=== PATIENT | male | born 1945 | race Two or more races ===

== ENCOUNTER 2024-12-30 13:49 | Inpatient (IN) | payer OTHER, SELFPAY ==
--- NOTE | 2024-12-09 12:18 | CM ---
Addendum entered by Rajni Mcintosh RN 12/09/24 14:50:
Demographics: confirmed
Living situation: lives with who does not drive, son will be available for transportation.
Support Person Post Operatively: , son
History of
VN: [facility], but patient is agreeable to [facility]
SNF: none
Outpatient: patient is unable to drive.
Has patient purchased required equipment: yes
PCP: Estefany
Pharmacy: [facility]
Post Operative Discharge Plan: Home with [facility], and continue with home PT. Patient does not have a ride to outpatient PT.
Addendum entered by Rajni Mcintosh RN 12/09/24 14:42:
[facility] is unable to accept. CM sent referral via [facility] to [facility].
Original Note:
CM reviewed medical records. CM will have to confirm if patient is eligible for [facility]. CM to send referral via [facility] for possible acceptance.
[2024-12-20 11:32] VITALS: BMI 32.4
[2024-12-20 12:04] LABS: Hematocrit 40.1 % (39.0-52.0); Hemoglobin 13.6 g/dL (13.0-18.0); Mean Corp Hgb Conc. 33.9 g/dL (33.0-37.0); Mean Corpuscular Volume 94.8 fL (80.0-94.0); Platelet Count 175 10^3/uL (130-400); Red Cell Dist. Width 13.1 % (11.5-14.5)
[2024-12-20 13:03] LABS: ALT (SGPT) 14 U/L (0-50); AST (SGOT) 18 U/L (17-59); Albumin 4.9 g/dl (3.5-5.0); Alkaline Phosphatase 47 U/L (38-126); Blood Urea Nitrogen 23 mg/dl (9-20); Calcium 9.8 mg/dl (8.4-10.2); Carbon Dioxide 26 mmol/L (22-30); Chloride 106 mmol/L (98-107); Estimated Creatinine Clearance 79 ml/min; Glucose 95 mg/dl (70-99); Potassium 4.2 mmol/L (3.5-5.1); Sodium 138 mmol/L (135-145); Total Protein 8.0 g/dl (6.3-8.2); eGFR > 60.00
[2024-12-20 13:55] LABS: Glycohemoglobin (HgbA1c) 5.2 % (4.0-5.6)
[2024-12-22 14:28] VITALS: BMI 32.4
[2024-12-29] VITALS (20 sets, daily range): BP systolic 97–156; BP diastolic 64–87; BMI 32.4
[2024-12-29] MEDS: CELEBREX 200 MG PO (07:45)
[2024-12-29] MEDS: TYLENOL 650 MG PO ×2 (07:47→19:46)
[2024-12-29] MEDS: NORMOSOL-R/PLASMALYTE-A 1000 IV ×3 (07:47→19:45)
[2024-12-29] MEDS: ANCEF 5 IV ×2 (11:53→19:45)
[2024-12-29] MEDS: ROXICODONE 5 MG PO ×2 (12:14→13:12)
--- NOTE | 2024-12-29 12:27 | PTCARENOTE ---
Patient tried to stand to dress at 12:00 but could not stand due to pain. RN had offered pain meds prior to standing and patient refused. Patient put back to bed and given an oxycodone. Will monitor patient. PT to come up at 1330.
--- NOTE | 2024-12-29 13:45 | PTCARENOTE ---
Tried standing patient and he was still unable to stand. Patient is very lethargic and teetering on the side of the bed and not able to hold self up. Dr. Nicholas saw patient at bedside and patient will be staying over. Patient and son aware. Will
monitor patient.
--- NOTE | 2024-12-29 14:16 | W.PN.UPDATE ---
Update Note
Progress Note Update
L knee OA s/p L TKA w/ Dr Nicholas 12/29/24
- Given initial safety concerns immediately post-op, will admit for further monitoring. Will place on fall precautions
- Work w/ PT and OT as able. Will need home PT/VN upon d/c
DVT prophylaxis - ASA, b/l venous foot pumps
HLD
RBBB
AAA, 4.[address]
Venous varicosities
Nephrolithiasis
Vertigo
Remote liposarcoma, left lower extremity, status post excision and chemo
Skin cancer, status post excision
Post-operative headache associated with remote spinal anesthesia
Obesity, BMI 32.3
Remote history of tobacco abuse
--- NOTE | 2024-12-29 14:33 | PTCARENOTE ---
2 L O2 applied for a sat of 90%. Abebe CONNER aware and told to apply 2 L O2. Shannon Zavala made aware and orders for IS. Report given to Melony CONNER. Melony aware that IS is ordered. Will monitor patient.
--- NOTE | 2024-12-29 16:26 | PTCARENOTE ---
patient has not voided pre op. Bladder scanned at 1545 for 687. Message william bhatti and Dr. Nicholas for possible straight cath. Flomax is ordered prn in transfer orders. Gave report to Genia hernandez RN.Waiting for room to be cleaned
[2024-12-29 17:17] LABS: Glucose - Point of Care 136 mg/dl (70-99)
--- NOTE | 2024-12-29 18:04 | PTCARENOTE ---
Patient admitted from same day services following left total knee arthroplasty.The patient was complaining of significant pain post op and had a lot of pain medicine.He is alert but slow to respond.Anesthesia just saw him and they feel that it is
all from the pain medicine.Neurovascular assessment is within normal limits and ongoing.The left knee dressing is intact without drainage.Vital signs are stable.Blood pressures are soft but stable.The patient was transferred to his bed with the call
hawthorne in place.His son is at the bedside.
[2024-12-29] MEDS: ASPIRIN 325 MG PO (18:37)
[2024-12-29] MEDS: FLOMAX 0.4 MG PO (18:37)
[2024-12-29] MEDS: COLACE 100 MG PO (19:46)
[2024-12-29] MEDS: SENOKOT 17.2 MG PO (19:46)
[2024-12-29] MEDS: BACTROBAN 2% OINTMENT 1 APPLIC NASAL (20:07)
[2024-12-29] MEDS: DECADRON 4 MG PO (20:25)
[2024-12-29 21:59] LABS: Glucose - Point of Care 143 mg/dl (70-99)
--- NOTE | 2024-12-29 22:20 | W.PN.UPDATE ---
Update Note
Progress Note Update
2216 LEGAL EXECUTIVE ASSISTANT
stroke alert
Patient with progressively worsening change in mental status. At present NIH 23. Patient Awake and alert, + Dysphasia, Dysarthria responds to name, has a gaze, but does not follow commands. Also noted muscle twitching on Right thigh, decorticate
posture noted as well, Stable VS , BS 138
CT stroke head/neck
CT stroke Head
CT Brain perfusion stroke
Consulted with Joshua Neurologist.
No treatment at present.
Advised MRI Brain, Ceribell test if continuos to have twitching
lungs with mild rhonchi/rales at the right base, need of increase in oxygen via NC noted 89-90% 3l, now on 5 L 94% RR 18 Chest Xray, ABG
Abdomen distention noted. + BS, non tender, +tympanic. CT abd/pelvis
will order UA, labs, EKG, Trop, lactic
RN reports patient was lethargic, AA and did follow commands to take his medicationsat 8 PM.
Discussed overnight events with family. son addresses he was with father all day and noted last normal was post surgery around 10:30 AM, noted mentation worsening and more weak throughout the day.
[facility] greenstone polisher operator Physician made aware.
Hospitalist consult in place
neurologist consult in place.
[2024-12-29 22:41] LABS: Hematocrit 37.3 % (39.0-52.0); Hemoglobin 12.9 g/dL (13.0-18.0); Mean Corp Hgb Conc. 34.6 g/dL (33.0-37.0); Mean Corpuscular Volume 92.1 fL (80.0-94.0); Nucleated Red Blood Cells % 0 % (-); Platelet Count 188 10^3/uL (130-400); Red Cell Dist. Width 13.1 % (11.5-14.5)
[2024-12-29 22:59] LABS: Blood Urea Nitrogen 23 mg/dl (9-20); Calcium 8.8 mg/dl (8.4-10.2); Carbon Dioxide 23 mmol/L (22-30); Chloride 106 mmol/L (98-107); Estimated Creatinine Clearance 102 ml/min; Glucose 141 mg/dl (70-99); Potassium 3.9 mmol/L (3.5-5.1); Sodium 140 mmol/L (135-145); eGFR > 60.00
--- NOTE | 2024-12-29 23:55 | PTCARENOTE ---
Pt transferred to [address] and stroke alert. Pt opens eyes, states date of , can respond with yes at times. NIHSS 24, can occasionally move legs and slightly moves arms. Arms posturing. SR on tele. 91% on midflow 15L, non
rebreather mask applied. lungs coarse/diminished. abdomen round/distended +BS. Incont lg amount yellow urine. OXIDIZED FINISH PLATER Hephziba aware and at bedside. ABG, trop, CXR, UA completed.
[2024-12-30] VITALS (24 sets, daily range): BP systolic 110–171; BP diastolic 55–108; BMI 32.4
[2024-12-30 00:11] LABS: B.E. -1.1 mmol/L; HCO3 22.4 mmol/L (21-28); O2 Saturation % 90.1 % (94-98); PCO2 33 mmHg (35-48)
[2024-12-30 00:12] LABS: PO2 57 mmHg (83-108)
--- NOTE | 2024-12-30 00:31 | PTCARENOTE ---
Late entry- s/p LTKA, Spinal plus IO morphine infusion by Cristopher per report. Patient administered x2 doses of Oxycodone 5mg >1214 and 1312.
Per shift report, patient was due for transfer to 2S earlier in day, but delayed d/t mentation from pain medications? At 1752, patient admitted to 2S.
Upon walking rounds, patient Alert/awake/oriented to self, confused/ forgetful, but follows commands, no c/o pain. NIH tested> Score 8. Patient w/ mild aphasia, LLE limb ataxia/decreased sensation. Left knee dressing C/D/I. Patient's VSS but is
requiring O2 which is new for him. Per previous notes, patient placed on 2LNC at 1626. This RN received patient on 3LNC. Lung sounds are clear, diminished b/l bases. Heart sounds regular but distant. Abdomen is soft/nontender, obese. Patient took
pills w/o issue. At 2005, patient bladder scanned for 604ml and straight cath 700ml yellow urine.
IVF administered per MD order.
Throughout this RN's shift, patient became more lethargic. Patient not following simple commands. cafeteria monitor placed- NSR. House FORGING DIE SINKER notified and came to bedside to assess patient. Ultimately, a RR/ stroke alert called. Patient transferred off
unit for testing and upgraded to IMU. Report handed off to DALILA Flores.
[2024-12-30 01:02] LABS: Urine Character Clear (Clear)
[2024-12-30] MEDS: TYLENOL PO ×4 (01:06→11:54)
[2024-12-30 01:08] LABS: Urine Red Blood Cell 0-2 /HPF (0-2); Urine Squamous Cell 0-2 /LPF (Few); Urine White Cell 0-2 /HPF (0-5)
[2024-12-30 01:35] LABS: Troponin I 0.021 ng/ml
[2024-12-30] MEDS: NARCAN 0.4 MG IV ×2 (02:03→02:25)
[2024-12-30] MEDS: NSS 1000 IV ×3 (02:55→23:32)
--- NOTE | 2024-12-30 02:56 | W.PN.UPDATE ---
Update Note
Progress Note Update
[address] [facility]: Kidney stones, hernia,�lipo�sacoma.�L knee OA s/p L TKA�on 12/29,�was supposed to be�sameday�surgery, in PACU received�one�dose of oxycodone, patient�become drowsy,�physician�decided to�admit�for overnight
observation.�2216 Stroke alert called for�changes�in�mental status;�work up�reveal, no�significant findings on head/chest/abdomen/pelvis CT,�ABG�and labs.�0200�House provider transfer�patient�for concern�of�seizure; started�on�ceribell�(0%�of
seizure burden).�Neuro status when arriving�at�the ICU was minimally�conscious�(arouses�and�inconsistent�awareness,�follows simple commands,�periods of�appropriate yes�response�and�can tell you�his�date of . �Attempted�Narcan
for�concern�of�opioid�intoxication.�Marginal improvement�
--- NOTE | 2024-12-30 03:08 | PTCARENOTE ---
Pt transferred from IMU to ICU. Pt drowsy, with intermittent periods of arousal. Pt able to state , responds to name. Does not follow commands. B/l UE flexed toward body, tense. Non-purposeful b/l intermittent flexion of knees. Both UE/LE drop
to bed when lifted, no resistance to gravity. Unable to truly test vision as pt inconsistent with yes/no answers. Does not follow commands to read sentences on NIH or identify pictures. Gaze preference to L side but moves eyes L + R by self (not on
command, will not follow finger). Pt states 'yes' to being able to feel when RN touches each limb at a time, but also states 'yes' when no one is touching him. When asking where he is or what month it is, pt repeats sentence back.
x2 dose Narcan ordered and administered. Ineffective at causing meaningful arousal.
Assessment as documented.
--- NOTE | 2024-12-30 03:29 | HPS.HSE ---
Family Physician
-
Family Physician: Randy Haider
Chief Complaint
-
Altered mental status
History of Present Illness
Patient is a 79-year-old male who has past medical history of end-stage knee osteoarthritis, hyperlipidemia, hypertension, history of ascending aortic aneurysm, prior liposarcoma status post surgery, presenting status post left total knee
arthroplasty with altered mental status and is being admitted to the medicine service for this.
Briefly, patient underwent left total knee arthroplasty starting at around 7:30 AM today. Procedure was without any complication. He did not get general anesthesia but received a regional block with sedatives. Medications received included
propofol 170 mg, Precedex, dexamethasone, ephedrine, fentanyl, bupivacaine, tranexamic acid and phenylephrine in addition to prophylactic cefazolin. Regional nerve block included morphine sulfate. 10 mg. Afterwards patient received Roxicodone 5 mg
at 12 noon and also 5 mg at 1 PM. Order administered medications where cefazolin, tamsulosin dexamethasone. Gabapentin was not given.
Hypoxic requiring 3 L NC in PACU.
According to chart patient had been lethargic since procedure. He was initially able to respond and was thought to be last normal at around 10 PM. Since then he has been minimally responsive. Unable to tolerate his p.o. Has been no measured
fevers or chills.
He had increasing oxygen requirement and then around mid 90s stroke alert was called for altered mental status. Stroke workup included head CT which showed no acute findings. CT perfusion study did not show any changes. CT angio of the head and
neck shows no significant stenosis dissection aneurysms or thrombus in the intracranial and neck vessels. There was no bleed. Due to slightly distended abdomen additional imaging included CT of the chest abdomen pelvis which showed no evidence of
pneumonia, there was a ascending aorta aneurysmal dilation measuring up to 4.4 cm. Marked calcified focus at the posterior margin of the pancreatic head suggestive of chronic pancreatitis. Mild to moderate colonic fecal burden with gaseous
distention of the transverse colon and mild gaseous distention of the small bowel. No evidence of bowel obstruction, no bowel thickening. Mild urinary bladder wall thickening and mild bladder wall trabeculation. No ascites.
By time I saw the patient he is oxygen requirement was mid flow at 15 L and was satting 93%. Blood pressure was 124/89 with a pulse rate of 85 respiratory rate was 26. Tmax was 98.3. He had a white count of 15.0 hemoglobin 12.9 and platelet count
of 188. His electrolytes BUN/creatinine were normal. Troponin was negative. UA was unremarkable. ABG was 7.4 with a sat of 90% on the 3 L. ECG 1st deg avb w/ sinus arrythmia
He had EEG continuous monitoring on which showed 0% seizure burden. Stroke alert was discontinued as there is no evidence of an acute stroke.
Medical History
Past Medical History
Past Medical History: Reports Other
Additional Past Medical History:
Liposarcoma s/p surgery
GERD
Hypertension
Ascending aortic aneurysm
Past Surgical History: Reports Other
Additional Past Surgical History:
Hernia repair
Surgery for liposarcoma
Social History
Tobacco: Other
Alcohol: None
Drug: None
Family History
Family History: Not pertinent
Allergies / Home Medications
Allergies reflects when Allergies were last updated in [employer].
Home Medications with original date entered in [employer]
Allergy/Medication List:
Allergies
Allergy/AdvReac Type Severity Reaction Status Date / Time
No Known Allergies Allergy Verified 12/29/24 07:37
Home Medications
metoprolol succinate 25 mg tablet,extended release 24 hr 25 mg PO DAILY 12/10/24
multivitamin 1 tab PO DAILY 12/10/24
simvastatin 20 mg tablet 20 mg PO QPM 12/10/24
vitamin B complex 1 tab PO DAILY 12/10/24
celecoxib 200 mg capsule (Celebrex) 200 mg PO DAILY #14 caps 12/20/24
dexamethasone 4 mg tablet 4 mg PO BID Anti-inflammatory #7 tabs 12/20/24
famotidine 20 mg tablet (Pepcid) 20 mg PO HS #30 tabs 12/20/24
gabapentin 300 mg capsule 300 mg PO HS neuropathic pain/sleep #10 caps 12/20/24
mupirocin 2 % topical ointment 1 applic intranasal BID #1 tube 12/20/24
ondansetron HCl 4 mg tablet 4 mg PO Q6H PRN nausea and vomiting #30 tabs 12/20/24
oxycodone 5 mg tablet 5 - 10 mg (1 - 2 x 5 mg) PO Q6H PRN moderate-severe pain #30 tabs 12/20/24
acetaminophen 500 mg tablet (Acetaminophen Extra Strength) 1,000 mg (2 x 500 mg) PO Q6H #60 tabs 12/29/24
aspirin 325 mg tablet 325 mg PO DAILY #30 tabs 12/29/24
docusate sodium 100 mg capsule (Colace) 100 mg PO BID #30 caps 12/29/24
magnesium hydroxide 400 mg/5 mL oral suspension (Milk of Magnesia) 30 ml PO HS PRN constipation #3,780 mL 12/29/24
sennosides 8.6 mg tablet (senna) 17.2 mg (2 x 8.6 mg) PO BID #30 tabs 12/29/24
Review of Systems
-
Unable to obtain full review of systems at this time due to: Patient Non-verbal
Physical Exam
Vital Signs
Vital Signs
Temp Pulse Resp BP Pulse Ox
98.3 F 91 26 141/76 94
12/30/24 02:16 12/30/24 03:00 12/30/24 03:00 12/30/24 02:00 12/30/24 03:25
Physical Exam
General: Other (Somnolent, arousable but not following any commands. Mild respiratory distress with tachypnea and mild diaphoresis)
HEENT: NormoCephalic and Other
Respiratory: Clear and Decreased Breath Sounds; No Rhonchi or Crackles
Cardiac: S1/S2 and Regular Rhythm; No Murmur, Rub or JVD
GI: Soft and Normal Bowel Sounds
Rectal: Deferred by Provider
Genito-urinary: Deferred by me
Musculoskeletal: No Clubbing, No Cyanosis and No Edema
Skin: Warm
Neuro: Other (Minimally responsive, GCS = 9)
Hematologic/Lymphatic: No Lymphadenopathy
Laboratory Results
-
Laboratory Results
pH 7.44 (7.35-7.45) 12/30/24 00:03
pCO2 33 mmHg (35-48) L 12/30/24 00:03
pO2 57 mmHg (83-108) L* 12/30/24 00:03
HCO3 22.4 mmol/L (21-28) 12/30/24 00:03
Total Bilirubin 0.9 mg/dl (0.2-1.3) 12/20/24 11:01
AST 18 U/L (17-59) 12/20/24 11:01
ALT 14 U/L (0-50) 12/20/24 11:01
Alkaline Phosphatase 47 U/L (38-126) 12/20/24 11:01
Troponin I 0.021 ng/ml 12/30/24 00:49
Data Reviewed
-
Diagnostic Radiology: Report Reviewed by me
CT Scan: Report Reviewed by me
Medical Tests (Nuc Med, Echo, EKG etc): Image Personally Visualized and interpreted
Lab Data: Labs Reviewed by me
Old Records: Reviewed
Impression/Plan
-
IMPRESSION:
79-year-old with past medical history significant for ascending aortic aneurysm, hypertension who is status post left total knee arthroplasty to the and then developed altered mental status that progressed throughout the day. It initially started
as lethargy and fatigue with decreased responsiveness, now patient has markedly diminished alertness with a GCS of around 9. Opens eyes to commands and can attempt to follow very simple commands such as squeezing hands but only minimally so. No
other commands followed. He has transient and brief episodes of flexural posturing of the upper extremities and extensor posturing of the lower extremities simultaneously. Did not observe any twitching but this was noted in the in the day.
Initial woke up has been started. Stroke alert was called and patient essentially it was clear for an acute stroke at that time with negative CT of the head, CT perfusion was also negative. CT angio shows no significant stenosis thrombus
obstruction bleed or aneurysm. Is had continuous EEG monitoring with no seizure burden. There was a trial of Narcan x 2 on arrival in the ICU without any significant improvement in mental status. In addition to the decline in mental status the
patient also has increasing oxygen requirement. Initially started at oxygen requirement of 3 L postoperatively but is now requiring 15 L mid flow to maintain sats of 93. He is also tachypneic to around 25 to 28 breaths/min. Workup so far
including x-ray and CT of the chest without contrast showed no acute infiltrates. Patient has leukocytosis but otherwise no signs of infection with negative UA. CT of the abdomen and pelvis was unrevealing except for a mild gaseous distention of
the stomach and intestine.
PLAN:
Altered mental status -patient with some flexion and extension posturing of the upper and lower extremities respectively concerning for significant encephalopathy versus a bilateral midbrain lesions. This is less likely seizure and the EEG did not
show any seizure boarding or activity during this posturing phase. Concern remains for CVA, metabolic encephalopathy secondary to medications or infection. No signs of acute infection anywhere at this time. He did not receive general anesthesia
and only regional block with 2 visual ascites which are unlikely to result in this degree of altered mental status but cannot be ruled out entirely.
- Patient transferred to ICU for continuous EEG monitoring
- Continue EEG, so far 0 seizure burden
- Airway monitoring, patient currently is able to protect airway and does not need to be intubated at this time.
- MRI brain for CVA in a.m.
- No evidence of intracranial bleed
- Afebrile with leuks but no other signs of infection - > blood cultures
- Possible improvement with washout of anesthetic medications (propofol, precedex)
- trial of narcan w/o improvement, unlikely opioid related
- regional nerve block (bupivicaine) at L4 - L5, no immediate signs of toxicity at the time
- npo for now
- maintenance fluids
- neurology consult
Hypoxia - Unexplained hypoxia, progressed through day with worsening alertness. Patient protecting airways. Patient without wheezing, cough, crackles on exam. CT non-contrast of chest no acute infiltrates, edema, ptx or effusion. Large A-a
gradient. Resp alkalosis. ECG w/o ischemia. Trop negative.
- supplemental oxygen currently on midflow w/ adequate oxygenation.
- atelectasis vs PE, check d-dimer, if elevated with a-a grad, will get CT angio to rule out PE
- checking procal
- wbc 15, hold off on abx
DVT PPX - lovenox sq while NPO
Code status - Full Code
[2024-12-30] MEDS: ANCEF 5 IV (03:49)
[2024-12-30 04:03] LABS: Hematocrit 36.4 % (39.0-52.0); Hemoglobin 12.4 g/dL (13.0-18.0); Mean Corp Hgb Conc. 34.1 g/dL (33.0-37.0); Mean Corpuscular Volume 96.6 fL (80.0-94.0); Platelet Count 151 10^3/uL (130-400); Red Cell Dist. Width 12.9 % (11.5-14.5)
[2024-12-30 04:22] LABS: Blood Urea Nitrogen 22 mg/dl (9-20); Calcium 8.8 mg/dl (8.4-10.2); Carbon Dioxide 21 mmol/L (22-30); Chloride 106 mmol/L (98-107); Estimated Creatinine Clearance 119 ml/min; Glucose 147 mg/dl (70-99); Potassium 3.8 mmol/L (3.5-5.1); Sodium 134 mmol/L (135-145); eGFR > 60.00
[2024-12-30 04:23] LABS: ALT (SGPT) 15 U/L (0-50); AST (SGOT) 20 U/L (17-59); Albumin 4.0 g/dl (3.5-5.0); Alkaline Phosphatase 48 U/L (38-126); Total Protein 6.5 g/dl (6.3-8.2)
[2024-12-30 05:16] LABS: D-Dimer 8.82 ug/mlFEU (0.00-0.50)
[2024-12-30 05:49] LABS: Magnesium 1.9 mg/dl (1.6-2.3)
--- NOTE | 2024-12-30 05:54 | PTCARENOTE ---
HR on telemetry noticed to be in irregular rhythm. EKG completed. AUTOMOTIVE PRODUCT SPECIALIST aware, Dr. Pop at bedside. BP stable. No further change in assessment.
--- NOTE | 2024-12-30 07:00 | PTCARENOTE ---
Received patient Lethargic, Eyes open briefly with voice, did not track consistently, only verbalized yes/no to questions, NIH 20, Afib, BP WNL, on Midflow 15L, NPO, condom catheter in place draining chata urine, Left knee surgical dressing C/D/I.
Pending STAT CT chest.
--- NOTE | 2024-12-30 07:56 | CON.INTV ---
Addendum entered and electronically signed by Valentin Yi MD 12/30/24 14:00:
Patient seen and examined independently by myself. Resident note reviewed below, agree with assessment and plan. History obtained from the chart and also from family members at the bedside
79-year-old male with history of hypertension, hyperlipidemia, AAA who is relatively independent, still playing golf, status post left knee replacement 12/29/2024. Patient received regional block with sedatives. Afterwards he received 4 oxycodone.
He required 3 L in the PACU. Patient had persistent lethargy postoperatively and noted to have increased oxygen requirements with persistent mental status changes. Stroke alert was called. Extensive imaging did not show any acute findings.
Patient mated to ICU for further management. Presently he is lethargic but arousable. He answers simple questions, follows commands but is profoundly weak. He has a poor inspiratory effort, currently on 13 L mid flow. We are asked to help from
critical care standpoint
Regarding social history, past medical history, family history, please see below
There are no known drug allergies
Physical exam
Presently vitals appear to be stable, 93% on 13 L mid flow. Respiratory rate 20-24
It is noted that he is hyperventilating, not taking deep breaths
No obvious wheeze, crackles
Cardiac exam no murmurs rubs or gallops
Abdominal exam is soft, nontender
Extremities no clubbing cyanosis or edema
Neurologically he does move all extremities but is profoundly weak, does move on command minimally
Data reviewed
EEG with 0% seizure burden
CT chest was reviewed, no obvious parenchymal disease, there is motion artifact
CT chest with contrast was also obtained, negative for pulm embolism
Head and neck imaging negative for acute stroke
A/P
At this time, there is no clear etiology for his mental status changes outside of medications
Postanesthesia although he received minimal anesthesia and regional block
Workup for thromboembolic disease also was negative
According to records, his mental status is improving somewhat this morning as he is answering questions but he is still lethargic overall
Ammonia level normal
ABG without evidence of CO2 retention
There is no evidence of cyanosis on exam
Moving forward
We will continue with metabolic workup
Check blood cultures, urine analysis unremarkable
Continue with IV fluids
Discontinue narcotic therapy
Check echocardiogram given extent of hypoxia
Patient had a recent stress test preadmission which was normal
Will check ABG with Co. oximetry, rule out methemoglobinemia
IV beta-lana as needed. Patient on outpatient oral beta-lana therapy
Head of bed elevated, aspiration precautions
Neurology is following
Reviewed with critical care nursing, respiratory care, pharmacy
Reviewed with neurology
Updated family members multiple times throughout the day
All questions answered
TCCT 45 min
Original Note:
Consultation
Consultation Request
Date/Time Consultation Requested: 12/30/2024 1:42
Date/Time Consultation Performed: 12/30/2024 7:56
Requesting Provider: Karsten Reece CRNP
Performing Provider: Valentin Yi MD
Reason for Consultation: Altered Mental Status
Medical History
-
Chief Complaint: Altered Mental Status
History of Present Illness:
This is an 79 y/o male with pmhx of end-stage knee osteoarthritis, hyperlipidemia, hypertension. 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 Then he began to
experience significant, debilitating pain in his left knee. He presented to the hospital on 12/29/2024 for a scheduled left total knee arthroplasty which was started around 7:30AM that same day and proceeded without complication. During this
arthroplasty he had regional block with morphine 10mg, as well as receiving propofol 170mg, Precedex, Dexamethasone, ephedrine, fentanyl, bupivacaine, tranexamic acid, cefazolin, and phenylephrine. Following his procedure he received roxicodone 5mg
at noon and 5mg at 1PM.
In the PACU he required 2 L NC for hypoxia. His son states that he was initially very responsive following his procedure, answering questions appropriately, calling his . He then noticed throughout the day that he became less able to take pills,
had difficulty with opening bottles, and held his hand several inches from his face when attempting to scratch his chin. He then became minimally responsive around 10PM.
A stroke alert was promptly called. CT of the head showed no acute findings, and perfusion studies showed no changes. CT angioplasty of the head/n neck showed no significant stenosis, dissection, aneurysm or thrombus. CT Chest/Abdomen/Pelvis showed
no evidence of pneumonia. Ascending aorta was dilated 4.4 cm. Narcan was administered for concern for acute opioid intoxicant with only marginal improvement. His oxygen requirement continued to increase, requiring mid-flow 15L. WBC was 15.0,
hemoglobin 12.9, troponin within normal limits. ABG showed pH of 7.44, CO2 33, Bicarb 22.4 and O2 of only 57. EKG showed 1st degree AV block with sinus rhythm. Continious EEG monitoring showed 0% seizure burden.
When I went in to see him this morning his sons were present as well as daughter in law. Patient opens his eyes in response to my calling of good morning, but quickly falls back asleep. By family report he began snoring in the last hour, which is a
return to his baseline.
Past Medical History
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
Past Surgical History: Orthopedic (Left total knee arthroplasty (12/29/2024)) and Other (Left Lower Extremity Liposarcoma removal, Cystoscopy w/ renal stone extraction, Bilateral hernia repair)
Social History
Tobacco: Former Smoker
Alcohol: Other (Alcohol consumption by family, report, they cannot quantify amount)
Drug: None
Personal:
Living: With Family
Family History
Family History: Unable to Obtain
Allergies / Home Medications
Allergies
Allergy/AdvReac Type Severity Reaction Status Date / Time
No Known Allergies Allergy Verified 12/29/24 07:37
Home Medications
�Medication �Instructions �Recorded �Confirmed �Last Taken �Type
metoprolol succinate 25 mg 25 mg PO DAILY 12/10/24 12/29/24 12/29/24 04:00 History
tablet,extended release 24 hr
multivitamin 1 tab PO DAILY 12/10/24 12/29/24 1 Week Ago History
~12/22/24
simvastatin 20 mg tablet 20 mg PO QPM 12/10/24 12/29/24 12/28/24 21:00 History
vitamin B complex 1 tab PO DAILY 12/10/24 12/29/24 1 Week Ago History
~12/22/24
celecoxib 200 mg capsule (Celebrex) 200 mg PO DAILY #14 caps 12/20/24 Unknown Rx
dexamethasone 4 mg tablet 4 mg PO BID Anti-inflammatory #7 12/20/24 Unknown Rx
tabs
famotidine 20 mg tablet (Pepcid) 20 mg PO HS #30 tabs 12/20/24 Unknown Rx
gabapentin 300 mg capsule 300 mg PO HS neuropathic 12/20/24 Unknown Rx
pain/sleep #10 caps
mupirocin 2 % topical ointment 1 applic intranasal BID #1 tube 12/20/24 Unknown Rx
ondansetron HCl 4 mg tablet 4 mg PO Q6H PRN nausea and 12/20/24 Unknown Rx
vomiting #30 tabs
oxycodone 5 mg tablet 5 - 10 mg (1 - 2 x 5 mg) PO Q6H 12/20/24 Unknown Rx
PRN moderate-severe pain #30 tabs
acetaminophen 500 mg tablet 1,000 mg (2 x 500 mg) PO Q6H #60 12/29/24 Unknown Rx
(Acetaminophen Extra Strength) tabs
aspirin 325 mg tablet 325 mg PO DAILY #30 tabs 12/29/24 Unknown Rx
docusate sodium 100 mg capsule 100 mg PO BID #30 caps 12/29/24 Unknown Rx
(Colace)
magnesium hydroxide 400 mg/5 mL 30 ml PO HS PRN constipation 12/29/24 Unknown Rx
oral suspension (Milk of Magnesia) #3,780 mL
sennosides 8.6 mg tablet (senna) 17.2 mg (2 x 8.6 mg) PO BID #30 12/29/24 Unknown Rx
tabs
Review of Systems
-
Unable to Obtain full review of systems at this time due to: Patient Non Verbal
Vitals / Labs / Diagnostic Testing
Vital Signs
Temp Pulse Resp BP Pulse Ox
98.9 F 87 16 126/74 94
12/30/24 07:40 12/30/24 05:45 12/30/24 05:45 12/30/24 05:00 12/30/24 05:45
Lab Data
12/30/24 03:42
12/30/24 03:42
Laboratory Results
12/30/24 12/30/24 12/30/24
00:03 01:43 03:25
PT Cancelled Cancelled
INR Cancelled Cancelled
APTT Cancelled Cancelled
pH 7.44 Cancelled
pCO2 33 L Cancelled
pO2 57 L* Cancelled
HCO3 22.4 Cancelled
O2 Delivery Level Cancelled
Diagnostic Testing:
Physical Exam
-
HEENT: Normocephalic and Anicteric
Cardiovascular: S1/S2 and Regular Rhythm
Respiratory: Clear (15L supplemental O2)
Neurology: Other (Briefly opens his eyes and looks towards my voice when I greet him in normal tone before returning to sleep. )
Skin: Warm, Dry and Good Color
General: Comfortable
Assessment
-
Assessment:
This is an 79 y/o male with pmhx of end-stage knee osteoarthritis, hyperlipidemia, hypertension who underwent an uncomplicated left total knee arthoplasty on 12/29/2024 and gradually developed altered mental status throughout the day following his
procedure with new acute hypoxic respiratory insufficiency postoperatively, now on 15L of O2
Plan:
Acute Hypoxic Respiratory Insufficiency
Altered Mental Status
Patient with new altered mental status and acute hypoxic respiratory insufficiency following left total knee arthoplasty on 12/29/2024 gradually worsening post-operatively
Intra-operatively received regional block with morphine 10mg, as well as receiving propofol 170mg, Precedex, Dexamethasone, ephedrine, fentanyl, bupivacaine, tranexamic acid, cefazolin, and phenylephrine.
Post-operatively received roxicodone x2
CT Head: No acute intracranial abnormalities
CTA Head/Neck: Right ICA estimated luminal diameter reduction of 50%. No dissection or occlusion. No hemodynamically significant stenosis involving the left common or internal carotid artery. No ambler of [place] region aneurysm or stenosis. No
cerebral artery significant plaque, stenosis, thrombus, or occlusion.
CT Chest/Ab/Pelvis: No evidence of pneumonia. Mild fusiform aneurysmal dilatation of the ascending aorta measuring up to 4.4 cm. Mild calcific focus at the posterior margin of the pancreatic head, suggesting sequela of chronic pancreatitis.
Remainder the pancreas is unremarkable. Bilateral renal cysts. Upper pole right renal 1.7 cm mass of slightly increased attenuation. Uncertain if this represents an enhancing mass or hyperdense cyst. If indicated, additional characterization may be
considered with MRI. Otherwise, recommend short-term follow-up in 6 months. Mild to moderate colonic fecal burden. There is mild gaseous distention of the transverse colon, and mild gaseous distention of small bowel, though without evidence to
suggest bowel obstruction. No bowel thickening. Mild urinary bladder wall thickening and mild bladder wall trabeculation.
CTA Chest: No evidence of pulmonary embolism. Small bands of airspace consolidation in the superior segments of the lower lobes and mild subpleural airspace consolidation in the lateral basilar segments of the lower lobes. Diagnostic possibilities
are (1) scarring and subsegmental atelectasis or (2) less likely pneumonia. Mild layering endoluminal secretions in the trachea and left mainstem bronchus (possibly AIRWAY ASPIRATION).
Lab findings thus far have been fairly unremarkable. Will need to monitor kidney function carefully as he did receive a large amount of contrast post-operatively
Overnight EEG has shown 0 seizure burden thus far
O2 requirement increased from 2L -> 12L -> 15L. Patient is currently protecting his airway, no indication for intubation at this time.
STOP Oxycodone
Start IV thiamine and folate supplementation
MRI Head ordered by admitting team, will follow
Ordered blood cultures x2. Monitor off antibiotics for now
Ordered repeat ABG. Findings similar to initial with hypoxia despite new O2 requirement.
Ordered echocardiogram
Ordered Ammonia level
Repeat X-ray in the AM
Continue to follow throughout the day for signs of clinical improvement. In all likelihood, this seems to be a result of the medications he received as he is opioid naive.
--- NOTE | 2024-12-30 07:56 | W.PN.UPDATE ---
Update Note
Progress Note Update
Pt seen and examined, sons present.
Patient developed severe obtundation postoperatively of uncertain underlying cause. So far workup has not revealed a clear explanation. Head CT did not demonstrate stroke, no evidence of seizure activity. Anesthesia with simple regional and
surgery was completely uncomplicated and routine.
In bed patient presently is not arousable. By review of the record he did not respond to Narcan with any improved mental status.
His knee bandage is completely clean dry and intact. He has no significant leg swelling. He has just returned from chest CT to evaluate for pulmonary embolism.
I discussed the current status with his sons. Medical workup will continue and I greatly appreciate the help of the medical consultants and trying to evaluate and determine the cause of his mental status changes.
--- NOTE | 2024-12-30 08:27 | CM ---
Addendum entered by Rajni Mcintosh RN 12/30/24 11:16:
CM met with family at bedside including patient's son's and daughter in law. Family was tearful and anxious regarding patient's condition. CM confirmed that patient's will arrive to visit and family has secured an aid for the to assist
with her care.
CM offered emotional support and advised family to contact CM with any questions or concerns.
Original Note:
Cm reviewed medical records. Patient remains acutely ill at this time. CM will remain available as needs for discharge planning.
PLAN: Pending
--- NOTE | 2024-12-30 08:30 | W.RAPID.EEG ---
Rapid EEG
-
Procedure Date: 12/30/24
Patient Status: Inpatient
Results:
IMPRESSION:
No evidence of status epilepticus
Recording Information:
Diagnostic Recording Time: 05:28:12 (328 minutes)
Recording 1:
Start Time: Dec 30, 2024 01:44 AM End Time: Dec 30, 2024 07:12 AM
Recording Technique: This EEG was obtained using a 10 lead, 8 channel system positioned circumferentially without any parasagittal coverage (rapid EEG). Computer selected EEG is reviewed as well as background features and all clinically significant
events. Clarity algorithm utilized and implemented to provide analysis of underlying activity and seizure detection used to facilitate reading. ICD-10 Code BA60J74
Clinical History: PEGGY HILL is a 79 year old Other, Other: ALTERED MS patient undergoing EEG to screen for non-convulsive status epilepticus.
Disclaimer: EEG findings should be interpreted in the context of clinical history and other tests. A normal EEG does not rule out epilepsy or other conditions, and an abnormal EEG is not diagnostic on its own. Technical factors may affect
interpretation. Clinical context is required.
Recording Information:
Diagnostic Recording Time: 00:43:00 (43 minutes)
Recording 1:
Start Time: Dec 30, 2024 07:47 AM End Time: Dec 30, 2024 08:30 AM
Recording Technique: This EEG was obtained using a 10 lead, 8 channel system positioned circumferentially without any parasagittal coverage (rapid EEG). Computer selected EEG is reviewed as well as background features and all clinically significant
events. Clarity algorithm utilized and implemented to provide analysis of underlying activity and seizure detection used to facilitate reading. ICD-10 Code HS64J04
Clinical History: PEGGY HILL is a 79 year old Other, Undifferentiated AMS, Other: AMS patient undergoing EEG to screen for non-convulsive status epilepticus.
[2024-12-30] MEDS: ASPIRIN PO (08:35)
[2024-12-30] MEDS: DECADRON PO ×2 (08:36→19:14)
[2024-12-30] MEDS: COLACE PO ×2 (08:36→19:13)
[2024-12-30] MEDS: SENOKOT PO ×2 (08:36→19:14)
[2024-12-30 09:28] LABS: B.E. -0.4 mmol/L; HCO3 22.1 mmol/L (21-28); O2 Saturation % 94.7 % (94-98); PCO2 29 mmHg (35-48); PO2 65 mmHg (83-108)
--- NOTE | 2024-12-30 10:21 | CHAP ---
Addendum entered by Darcy Mcnair 12/30/24 14:23:
Monsignor Peres provided [facility] as requested.
Addendum entered by Darcy Mcnair 12/30/24 10:23:
Monsignor Peres answered and plans to come this afternoon as family requests.
Original Note:
[employer] Specialist request relayed to on-call manager field sales for [facility] this afternoon. Awaiting reply.
[2024-12-30 10:54] LABS: Ammonia 10 umol/L (9-30)
[2024-12-30] MEDS: BACTROBAN 2% OINTMENT 1 APPLIC NASAL ×2 (11:25→19:32)
[2024-12-30] MEDS: THIAMINE INJECTION 100 MG IV (11:25)
[2024-12-30] MEDS: FOLVITE 50.2 MG IV (11:25)
--- NOTE | 2024-12-30 12:00 | PTCARENOTE ---
Reassessed the patient, neuro status unchanged from previous assessments, EEG pending.
--- NOTE | 2024-12-30 12:21 | CON.NEURO4 ---
Addendum entered and electronically signed by Artie Sesay MD 12/30/24 19:15:
I had a detailed discussion with the patient's family regarding the assessment and the management plan including his 2 sons in the morning. The MRI of the brain report was also discussed with the patient's son in the evening after the report was
available, and he verbalized understanding of our discussion.
Addendum entered and electronically signed by Artie Sesay MD 12/30/24 19:12:
I have seen and examined the patient today on 12/30/2024. I have also discussed the patient's assessment and the management plan with nurse practitioner Phyllis Moser and I generally agree with her note below. The following is my addendum.
The patient is an 79 years old male who had a left total knee replacement yesterday on 12/29/2024. The patient had altered mental status postoperatively.
The MRI of the brain was done today that showed numerous acute to subacute infarctions within the both cerebral hemispheres and bilaterally in the cerebellum.
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
The CTA of the head and neck did not show a large vessel occlusion.
Neurologic examination: The patient opens his eyes to verbal commands and is able to tell his name. The speech appears to be dysarthric. He is able to move both upper and lower extremities spontaneously. The patient is unable to recognize the
family members or to carry on a conversation. The neurologic examination was limited as the patient could not cooperate with examination.
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 At this time the patient appears to be in atrial fibrillation and would benefit from
a cardiology consult. For now we will continue aspirin rectally as the patient is unable to take medications orally. Will repeat CT of the head in the morning and follow the patient clinically. The patient may need long-term anticoagulation for
atrial fibrillation.
Discussed with Dr. Tiago Montiel.
Original Note:
Consultation - Neurology 4
-
CONSULTING PHYSICIAN: Artie Sesay MD
REFERRING PHYSICIAN: Hospitalists/FARA Jacobsen
DICTATED BY: FARA Carrion
DATE/TIME OF REQUEST: 12/30/24
DATE/TIME OF CONSULTATION: 12/30/24
Reason for Consultation: Stroke Alert
History of Present Illness:
This is an 79-year-old male who has presented to the hospital on 12/29/24 for left total knee replacement. Patient's family reports that postoperatively he initially was doing pretty well and was able to drink a cup of coffee. Shortly after he
started to be more lethargic and unable to stay alert to hold a cup in his hand. Patient was reporting pain and received one dose of oxycodone. He proceeded to be more lethargic and became minimally responsive prompting a stroke alert to be
activated. CT Head, CTA head/neck were obtained and are negative for any acute abnormalities. CT brain perfusion demonstrates an 87ml penumbra and no core infarct, but the area involves bilateral posterior lobes an is somewhat inconclusive. Patient
was not a candidate for TNK/IAT due to major surgery that day and no LVO. Ceribell was applied to rule out seizure and demonstrated 0% seizure burden. Patient continues to be lethargic, does no provide answers to review of systems questioning.
Past Medical History: HTN, HLD, AAA, liposarcoma, osteoarthritis, renal calculi
Surgical History: hernia repair, liposarcoma removal
Family History: Reviewed and noncontributory.
Social History: No tobacco, alcohol, or illicit drug use.
Allergies: No known allergies.
Home Medications: See below.
Review of Symptoms:
Per the HPI. I am unable to obtain a complete review of systems�because of patient's inability to provide history.
Physical Exam:
The patient is afebrile, abdomen is nondistended, breathing is mildly labored on oxygen via nasal cannula, skin is warm and dry, no edema.
NIH Stroke Scale:
I performed the NIH stroke scale on the patient on 12/30/24 at 0915. The patient scored 18 points on the NIH stroke scale assessment, which were assigned as follows: See below.
Neurologic Examination:
The patient is lethargic. Opens eyes to voice, closes eyes after stimulation. He is oriented to name only. He is able to follow some simple commands and answer rare simple questions. There is mild aphasia due to lack of responsiveness and
dysarthria. On cranial nerve assessment, pupils are 3 mm bilateral, round and reactive to light and accommodation. GABBY visual rodriguez and EOMs, gaze is midline. There is no apparent facial asymmetry. GABBY hearing. Tongue palate and uvula are midline.
Motor strengths are 1/5 bilateral upper and lower extremities on medical research [place] scale. GABBY drift. Increased tone in all extremities. No involuntary movement noted. Babinski is absent bilaterally. GABBY sensation, double simultaneous, and
coordination.
Lab Results: See below.
Neuro Imaging:
1. CT head 12/29/24: No acute intracranial abnormality noted. Aspect 10.
2. CTA head/neck 12/29/24: Bilateral cervical carotid calcified plaque formation, as described. Right ICA estimated luminal diameter reduction of 50%. No dissection or occlusion. No hemodynamically significant stenosis involving the left common or
internal carotid artery. No comanche of [place] region aneurysm or stenosis. No cerebral artery significant plaque, stenosis, thrombus, or occlusion.
3. CT Brain Perfusion 12/29/24: CBF 0ml, Tmax 87ml.
Differentials for the patient's presentation include:
1. Altered mental status s/p L TKR. Uncertain etiology, possibilities include toxic metabolic encephalopathy, stroke, seizure.
Patient has the following risk factors for their symptoms:
IV Tenecteplase/IAT candidacy: Patient was not a candidate for TNK/IAT due to major surgery that day and no LVO.
Recommendations:
-Continue full dose aspirin per Ortho, consider rectal administration if he remains NPO.
-Goal normotension.
-NIHSS and neurological checks per unit guidelines.
-MRI brain noncontrast pending.
-Routine EEG pending.
-DVT prophylaxis.
Discussed patient care with: Dr. Sesay, the patient's family
Vital Signs and Labs
-
Vital Signs and Labs:
Vital Signs
Temp Pulse Resp BP Pulse Ox
99.6 F 87 16 126/74 94
12/30/24 11:57 12/30/24 05:45 12/30/24 05:45 12/30/24 05:00 12/30/24 05:45
Lab Results
12/30/24 03:42
12/30/24 03:42
PT Cancelled 12/30/24 03:25
INR Cancelled 12/30/24 03:25
APTT Cancelled 12/30/24 03:25
Sodium 134 mmol/L (135-145) L 12/30/24 03:42
Potassium 3.8 mmol/L (3.5-5.1) 12/30/24 03:42
BUN 22 mg/dl (9-20) H 12/30/24 03:42
Glucose 147 mg/dl (70-99) H 12/30/24 03:42
Calcium 8.8 mg/dl (8.4-10.2) 12/30/24 03:42
Medications
-
Active Medications
Generic Name Dose Route Start Last Admin
Trade Name Freq PRN Reason Stop Dose Admin
Al Hydrox/Mg Hydrox/Simethicone 30 ml 12/29/24 17:58
Mag/Al/Simethicone Suspension 30 Ml Cup PO 01/26/25 17:57
Q4HPRN PRN
INDIGESTION
Atorvastatin Calcium 10 mg 12/30/24 18:00
Atorvastatin (Lipitor) 10 Mg Tablet PO 01/27/25 17:59
QPM KENZIE
Celecoxib 200 mg 12/30/24 08:00 12/30/24 08:36
Celecoxib 200 Mg Capsule PO 01/27/25 07:59 Not Given
DAILY KENZIE
Dexamethasone 4 mg 12/29/24 20:00 12/30/24 08:36
Dexamethasone 4 Mg Tablet PO 01/01/25 08:01 Not Given
BID KENZIE
Docusate Sodium 100 mg 12/29/24 20:00 12/30/24 08:36
Docusate Sodium 100 Mg Capsule PO 01/26/25 19:59 Not Given
BID KENZIE
Enoxaparin Sodium 40 mg 12/30/24 18:00
Enoxaparin Sodium 40 Mg/0.4 Ml Syringe SC 01/27/25 17:59
QPM KENZIE
Famotidine 20 mg 12/29/24 22:00 12/29/24 22:02
Famotidine 20 Mg Tablet PO 01/26/25 21:59 Not Given
HS KENZIE
Gabapentin 300 mg 12/29/24 22:00 12/29/24 22:02
Gabapentin 300 Mg Capsule PO 01/26/25 21:59 Not Given
HS KENZIE
Hydromorphone HCl 0.5 mg 12/29/24 17:58
Hydromorphone 0.5 Mg/0.5 Ml Syringe IV 01/12/25 17:57
Q3HPRN PRN
SEVERE BREAKTHROUGH PAIN ONLY
Folic Acid 1 mg/ Sodium 50.2 mls @ 200.8 mls/hr 12/30/24 12:00 12/30/24 11:25
Chloride IV 01/27/25 11:59 50.2 mls
Q24H KENZIE Administration
Acetaminophen 1,000 mg in 100 mls @ 400 mls/hr 12/30/24 12:00 12/30/24 12:26
Ofirmev IV 12/31/24 11:59 100 mls
Q6H KENZIE Administration
Protocol
Sodium Chloride 1,000 mls @ 100 mls/hr 12/30/24 12:00 12/30/24 12:26
Nss IV 1,000 mls
.Q10H KENZIE Administration
Magnesium Hydroxide 30 ml 12/29/24 17:58
Milk Of Magnesia 30 Ml Cup PO 01/26/25 17:57
DAILYPRN PRN
constipation
Metoprolol Succinate 25 mg 12/30/24 08:00 12/30/24 08:36
Metoprolol 25 Mg Extended Release Tablet PO 01/27/25 07:59 Not Given
DAILY KENZIE
Metoprolol Tartrate 5 mg 12/30/24 09:42
Metoprolol 5 Mg/5 Ml Vial IV 01/27/25 09:41
Q6HPRN PRN
Tachycardia
Mupirocin 0 applic 12/29/24 20:00 12/30/24 11:25
Mupirocin 2% (Ointment) 22 Gram Tube NASAL 12/30/24 20:01 1 applic
BID KENZIE Administration
Ondansetron HCl 4 mg 12/29/24 17:58
Ondansetron 4 Mg/2 Ml Vial IV 01/26/25 17:57
Q6HPRN PRN
NAUSEA
Oxycodone HCl 5 mg 12/29/24 10:00
Oxycodone 5 Mg Regular Release Tablet PO
SDS-ONCEPRN PRN
pain unrelieved by first dose
Prochlorperazine Maleate 5 mg 12/29/24 17:58
Prochlorperazine 5 Mg Tablet PO 01/26/25 17:57
Q6HPRN PRN
nausea/vomiting
Sennosides 17.2 mg 12/29/24 20:00 12/30/24 08:36
Sennosides (Senokot) 8.6 Mg Tablet PO 01/26/25 19:59 Not Given
BID KENZIE
Sodium Chloride 0 flush 12/29/24 19:00
Sodium Chloride 0.9% (Flush) Syringe IV 01/26/25 18:59
PER PROTOCOL KENZIE
Tamsulosin HCl 0.4 mg 12/29/24 17:58 12/29/24 18:37
Tamsulosin 0.4 Mg Capsule PO 01/26/25 17:57 0.4 mg
DAILYPRN PRN Administration
bladder scan volume > 400 mL
Thiamine HCl 100 mg 12/30/24 12:00 12/30/24 11:25
Thiamine (100 Mg/Ml) 2 Ml Vial IV 01/27/25 11:59 100 mg
DAILY KENZIE Administration
Tramadol HCl 50 mg 12/29/24 17:58
Tramadol Hcl 50 Mg Tablet PO 01/26/25 17:57
Q4HPRN PRN
mild pain
Home Medications
�Medication �Instructions �Recorded
metoprolol succinate 25 mg 25 mg PO DAILY Heart 12/10/24
tablet,extended release 24 hr Disease/Condition
multivitamin 1 tab PO DAILY Supplement 12/10/24
simvastatin 20 mg tablet 20 mg PO QPM High Cholesterol 12/10/24
vitamin B complex 1 tab PO DAILY Supplement 12/10/24
celecoxib 200 mg capsule (Celebrex) 200 mg PO DAILY #14 caps 12/20/24
dexamethasone 4 mg tablet 4 mg PO BID Anti-inflammatory #7 12/20/24
tabs
famotidine 20 mg tablet (Pepcid) 20 mg PO HS #30 tabs 12/20/24
gabapentin 300 mg capsule 300 mg PO HS neuropathic 12/20/24
pain/sleep #10 caps
mupirocin 2 % topical ointment 1 applic intranasal BID #1 tube 12/20/24
ondansetron HCl 4 mg tablet 4 mg PO Q6H PRN nausea and 12/20/24
vomiting #30 tabs
oxycodone 5 mg tablet 5 - 10 mg (1 - 2 x 5 mg) PO Q6H 12/20/24
PRN moderate-severe pain #30 tabs
acetaminophen 500 mg tablet 1,000 mg (2 x 500 mg) PO Q6H #60 12/29/24
(Acetaminophen Extra Strength) tabs
aspirin 325 mg tablet 325 mg PO DAILY #30 tabs 12/29/24
docusate sodium 100 mg capsule 100 mg PO BID #30 caps 12/29/24
(Colace)
magnesium hydroxide 400 mg/5 mL 30 ml PO HS PRN constipation 12/29/24
oral suspension (Milk of Magnesia) #3,780 mL
sennosides 8.6 mg tablet (senna) 17.2 mg (2 x 8.6 mg) PO BID #30 12/29/24
tabs
NIH Stroke Score
Subsequent NIH Scale
Date of Subsequent NIH Scale: 12/30/24
Time of Subsequent NIH Scale: 09:15
NIH Stroke Score
Level of Consciousness: 1 - Arousable
LOC Questions: 2-Neither correct
LOC Commands: 1-Performs one correctly
Best Horizontal Gaze: 0-Normal
Visual Rodriguez: 0=Normal, no visual loss
Facial Palsy: 0=Normal, symmetrical
Motor - Right Arm: 3=None vs. gravity
Motor - Left Arm: 3=None vs. gravity
Motor - Right Le-None vs. gravity
Motor - Left Le-None vs. gravity
Limb Ataxia: UN-Amputation/jointfusion
Sensation: 0-Normal
Best Language: 1-Mild aphasia
Dysarthria: 1-Mild slurring
Extinction and Inattention: 0-No abnormality
NIH Total Score:: 18
Modified Maude (mRS) Score
Modified Snyder Scale (mRS): Severe disability. Requires constant nursing care.
Score: 5
Alteplase Contraindication
Inclusion and Exclusion criteria reviewed: Yes
Reasons for NON-Tx with Thrombolytics POSSIBLE Exclusions: Major surgery or serious trauma within proceding 14 days
IAT Contraindications: Imaging doesn't show large vessel occlusion as cause of stroke
[2024-12-30] MEDS: OFIRMEV 100 IV ×2 (12:26→17:17)
--- NOTE | 2024-12-30 15:06 | EEG.RPT ---
Electroencephalogram Report
Recording
Date of EE12/30/24
Type of EEG: Routine
Length of EEG recordin minutes
Done with Video Recording: Yes
Patient Status: Inpatient
Recording Conditions: Awake and Drowsy
Hyperventilation Performed: No
Photic Stimulation Performed: Yes
Report
LESS THAN 1 HOUR EEG REPORT
LESS THAN 1 HOUR EEG INTERPRETATION:
Mildly-moderately abnormal study for age based on low amplitude even for age, generalized slowing demonstrated bihemispherically equally
CLINICAL CORRELATION:
Although normative values not been established for a person of this advanced age the patient�s symmetry of the background suggests that this study was suggestive of moderate bihemispheric cortical dysfunction. No epileptiform features were
demonstrated.
If concerns remain regarding epilepsy, prolonged monitoring may be of assistance.
Clinical correlation is advised.
METHODS:
A 21-channel digital electroencephalogram (EEG) was performed in the ICU. The 10/20 international system of electrode placement was used with ECG and lateral/vertical eye movements recorded.
IMPRESSION(S):
Quality of study
Fair
Background
Medium amplitude
Anterior-posterior voltage gradient differentiation: Fair
Theta frequency maximal background demonstrated
Sleep
Drowsiness present
Hyperventilation
Not performed
Photic Stimulation
Failed to activate the record
ECG
No clear arrhythmias
Abnormal Activity
None
--- NOTE | 2024-12-30 16:01 | PTCARENOTE ---
Reassessed the patient, continue to be lethargic, pending MRI Brain.
[2024-12-30 16:24] LABS: B.E. -1.1 mmol/L; HCO3 21.8 mmol/L (21-28); O2 Saturation % 98.1 % (94-98); PCO2 30 mmHg (35-48); PO2 88 mmHg (83-108)
[2024-12-30 16:27] LABS: Methemoglobin 0.6 % (0.5-1.5)
[2024-12-30] MEDS: LOVENOX 40 MG SC (17:17)
[2024-12-30] MEDS: ASPIRIN 300 MG RECTAL (17:17)
--- NOTE | 2024-12-30 20:55 | PTCARENOTE ---
Pt received start of shift, HR SR w/ 1st degree/afib on telemetry. Pt drowsy, with intermittent periods of arousal. Pt able to state , responds to name. Does not follow commands. B/l UE flexed toward body, tense but more relaxed than this RN's
previous shift. Non-purposeful b/l intermittent flexion of knees. Both UE/LE drop to bed when lifted, no resistance to gravity. Unable to truly test vision as pt inconsistent with yes/no answers. Does not follow commands to read sentences on NIH or
identify pictures. NIH as documented. L knee dressing CDI. L DP pulse palpable.
[2024-12-31] VITALS (24 sets, daily range): BP systolic 127–181; BP diastolic 69–109; PULSE 85–86; O2SAT 94; BMI 32.1
[2024-12-31] MEDS: OFIRMEV 100 IV ×2 (00:04→05:26)
--- NOTE | 2024-12-31 00:22 | PTCARENOTE ---
Pt reassessed, neuro status unchanged. Condom cath #21 short changed, skin intact. O2 weaning as tolerated by pt, currently 5L NC POX 94%. Scheduled ofirmev. Repositioning. Mouth care provided.
[2024-12-31 03:56] LABS: Hematocrit 33.5 % (39.0-52.0); Hemoglobin 11.0 g/dL (13.0-18.0); Mean Corp Hgb Conc. 32.8 g/dL (33.0-37.0); Mean Corpuscular Volume 96.8 fL (80.0-94.0); Platelet Count 136 10^3/uL (130-400); Red Cell Dist. Width 13.2 % (11.5-14.5)
[2024-12-31 04:15] LABS: Blood Urea Nitrogen 21 mg/dl (9-20); Calcium 8.6 mg/dl (8.4-10.2); Carbon Dioxide 20 mmol/L (22-30); Chloride 110 mmol/L (98-107); Estimated Creatinine Clearance 102 ml/min; Glucose 109 mg/dl (70-99); Magnesium 1.9 mg/dl (1.6-2.3); Potassium 3.8 mmol/L (3.5-5.1); Sodium 136 mmol/L (135-145); eGFR > 60.00
--- NOTE | 2024-12-31 04:49 | W.PN.UPDATE ---
Update Note
Progress Note Update
POD#2 uneventful Left TKA (). Surgery routine with simple, regional anesthesia. Son, Abebe, at the bedside. Left knee bandage CDI. He is able to open his eyes to verbal commands, with dysarthric speech. He is able to move his UE and
LE spontaneously per Neuro. The patient, I'm told, is unable to recognize his family members or carry on a conversation.
Brain MRI reveals findings compatible with acute to subacute infarction within both cerebral hemispheres, involving the frontal, parietal, and occipital lobes. Appears to be in the vascular region of the middle cerebral arteries and posterior
cerebral arteries bilaterally. This was likely cardioembolic, per Neuro. MRI has been reviewed and discussed with the family by Neuro and CM is assisting with anticipated needs moving forward. Continue Tx per the forging die finisher/primary team and
consultants. Anticipate cardiology consult, as it appears he is in and out of A-fib. ASA continued, rectally, as he is unable to take po. We will continue to follow along while admitted and support the family as we can.
--- NOTE | 2024-12-31 05:44 | PTCARENOTE ---
Pt POX down to 90-92% on 5L NC, titrated to 8L midflow NC. POX 95%. No further change in assessment.
--- NOTE | 2024-12-31 07:10 | W.PN.INTV ---
Addendum entered and electronically signed by Valentin Yi MD 12/31/24 10:06:
Patient seen and examined independently by myself. Resident note reviewed, agree with assessment and plan
Unfortunately, no significant improvement in neurological status. Patient does answer questions at times, does spontaneously move lower extremities. Yawning at times
Brain MRI with new multiple acute and subacute infarcts
Oxygen requirement improved down to 5 L
Vitals stable, 94%, urine output adequate
Blood pressure 150s/70s
Physical exam
Good color
Chest exam is clear, inspiratory effort is improved. No obvious crackles, rhonchi
Patient does occasionally open eyes and answer one-word yes/no
He does spontaneously move lower extremities, does not consistently follow commands
Abdominal exam soft
Foot pumps and MATEUS stockings in place
Data reviewed
ABG with adequate ventilation/oxygenation, improved
Methemoglobin level normal
Brain MRI with multiple infarcts
Echocardiogram with normal biventricular function, no evidence of interatrial shunt
A/P
Reviewed at length with son at bedside
Reviewed with neurology
Suspected cardioembolic strokes
Some of them are subacute
Moving forward
Plan for Dobbhoff tube, nutrition
Check lower extremity Dopplers, assess status for DVT
Continue with mechanical DVT prophylaxis
Hold aspirin, Lovenox for now pending repeat head CT
Head of bed elevated, aspiration precautions
Oxygen requirement has improved
Suspect hypoxia was hypoventilation
There is a question as to whether there may be some paroxysmal atrial fibrillation
Cardiology has been consulted
Had extensive discussion with son
Son implies that depending on neurological recovery, they may decide not to pursue a permanent feeding tube
For now however they will continue with current supportive care and are agreeable to placement of Dobbhoff tube
Reviewed with critical care nursing, respiratory care, pharmacy
Will also address CODE STATUS with family
TCCT 31 min
Original Note:
Today's Communication / Plan
Recommendations
Dietary Consult for Tube Feeds
Venous Ultrasound evaluate for DVTs
Follow up on blood cultures
Follow up on repeat CT Head
Assessment
-
Assessment:
This is an 79 y/o male with pmhx of end-stage knee osteoarthritis, hyperlipidemia, hypertension who underwent an uncomplicated left total knee arthoplasty on 12/29/2024 and gradually developed altered mental status throughout the day following his
procedure with new acute hypoxic respiratory insufficiency postoperatively, now on 15L of O2 found to have brain infarction on MRI.
Plan:
Acute Hypoxic Respiratory Insufficiency
Altered Mental Status
Strokes, likely Cardioembolic
Patient with new altered mental status and acute hypoxic respiratory insufficiency following left total knee arthoplasty on 12/29/2024 gradually worsening post-operatively
Intra-operatively received regional block with morphine 10mg, as well as receiving propofol 170mg, Precedex, Dexamethasone, ephedrine, fentanyl, bupivacaine, tranexamic acid, cefazolin, and phenylephrine.
Post-operatively received roxicodone x2
CT Head: No acute intracranial abnormalities
CTA Head/Neck: Right ICA estimated luminal diameter reduction of 50%. No dissection or occlusion. No hemodynamically significant stenosis involving the left common or internal carotid artery. No [place] region aneurysm or stenosis. No
cerebral artery significant plaque, stenosis, thrombus, or occlusion.
CT Chest/Ab/Pelvis: No evidence of pneumonia. Mild fusiform aneurysmal dilatation of the ascending aorta measuring up to 4.4 cm. Mild calcific focus at the posterior margin of the pancreatic head, suggesting sequela of chronic pancreatitis.
Remainder the pancreas is unremarkable. Bilateral renal cysts. Upper pole right renal 1.7 cm mass of slightly increased attenuation. Uncertain if this represents an enhancing mass or hyperdense cyst. If indicated, additional characterization may be
considered with MRI. Otherwise, recommend short-term follow-up in 6 months. Mild to moderate colonic fecal burden. There is mild gaseous distention of the transverse colon, and mild gaseous distention of small bowel, though without evidence to
suggest bowel obstruction. No bowel thickening. Mild urinary bladder wall thickening and mild bladder wall trabeculation.
CTA Chest: No evidence of pulmonary embolism. Small bands of airspace consolidation in the superior segments of the lower lobes and mild subpleural airspace consolidation in the lateral basilar segments of the lower lobes. Diagnostic possibilities
are (1) scarring and subsegmental atelectasis or (2) less likely pneumonia. Mild layering endoluminal secretions in the trachea and left mainstem bronchus (possibly AIRWAY ASPIRATION).
MRI Brain 12/30: There are numerous scattered foci of abnormal diffusion-weighted signal compatible with acute to subacute infarction within both cerebral hemispheres, with involvement of the frontal, parietal, and occipital lobes. Distribution
appears to be in the vascular territory of the middle cerebral arteries and posterior cerebral arteries bilaterally. A few small foci of acute to subacute infarct involving the cerebellar hemispheres, slightly greater on the left compared to the
right. No evidence for associated hemorrhage or mass effect.
Lab findings thus far have been fairly unremarkable. Will need to monitor kidney function carefully as he did receive a large amount of contrast post-operatively
O2 requirement increased from 2L -> 12L -> 15L, now down to 8L today. Patient is currently protecting his airway, no indication for intubation at this time.
Continue IV thiamine and folate supplementation
Follow blood cultures x2. Monitor off antibiotics for now
HOLD aspirin/Lovenox for now until repeat Head CT is performed to confirm he does not have hemorrhagic transformation
Ordered Tube feeds with dietary consult
Ordered bilateral lower extremity venous ultrasound
Pending repeat X-ray this morning
Pending CT-Head per Neurology recommendations
Paroxysmal Atrial Fibrillation
Per Neurology and Orthopedic notes last night and this morning, patient is in and out of atrial fibrillation
No known personal history of atrial fibrillation reported by family
Rate by telemetry and exam appears regular to be today, ~70 bpm, though difficult to parse out P waves
Echocardiogram 12/30: 1. Ejection fraction is 65-70% by visual assessment. Right ventricular size and systolic function are within normal limits.Mild aortic valve stenosis. Mild to moderate aortic regurgitation. Trace mitral valve regurgitation.
Trace tricuspid regurgitation. Estimated pulmonary artery pressure of 29 mmHg assuming a right atrial pressure of 3 mmHg. Dilated aortic root and ascending aorta. Sinus of valsalva measures 4.4 cm, sinotubular junction measures 4.4 cm, and ascending
aorta measures 4.0 cm.
Cardiology has been consulted by primary team this morning, will appreciate their insight
Will resume metoprolol tartrate 12.5mg BID with hold for SBP <140
Subjective Dataa
Subjective Data
Date of Service:
Date of Service: December 31, 2024
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
Subjective:
Patient was sleeping comfortably in the room with his son at his bedside. Son reports they had discussed the results of the MRI of the head yesterday with the Neurology team. Since then, he has only heard his father say 'yes' to any questions, and
is very worried about if he will have any meaningful recovery.
I awoke Júnior, who did awaken to the sound of my voice but did not wish to open his eyes. When I asked him if he was tired he said 'yes'. When I asked him if he would like to wake up he said 'no'. His son states that this is the first time so far he
has heard his father answer a question appropriately rather than just defaulting to agreement.
Review of Systems
General: Unobtainable - Pat Unresp
Objective Data
Data Reviewed
Vital Signs / I&O / Oxygen:
Vital Signs
Temp Pulse Resp BP Pulse Ox
99.6 F 75 17 154/69 95
12/31/24 03:01 12/31/24 06:00 12/31/24 06:00 12/31/24 06:00 12/31/24 06:00
Intake and Output
12/30/24 12/31/24 01/01/25
06:59 06:59 06:59
Intake Total 400 / 500 2600 / 2600
Output Total 1100 / 1100 1225 / 1225
Balance -700 / -600 1375 / 1375
SaO2 95
Nasal Cannula flow liters per 15
minute
Physical Exam
General: Comfortable
HEENT: Normocephalic and Anicteric
Cardiovascular: S1-S2 and Regular Rhythm
Respiratory: Clear
Skin: Warm, Dry and Good Color
Labs/Micro/Reports
Lab Data
12/31/24 03:23
12/31/24 03:23
Laboratory Results
12/30/24 12/30/24 12/30/24
08:42 09:13 16:15
pH Cancelled 7.49 H 7.47 H
pCO2 Cancelled 29 L 30 L
pO2 Cancelled 65 L 88
HCO3 Cancelled 22.1 21.8
O2 Delivery Level Cancelled
[2024-12-31] MEDS: COLACE PO (07:28)
[2024-12-31] MEDS: SENOKOT PO (07:28)
[2024-12-31] MEDS: DECADRON PO (07:28)
[2024-12-31] MEDS: THIAMINE INJECTION 100 MG IV (08:00)
--- NOTE | 2024-12-31 08:00 | W.PN.UPDATE ---
Update Note
Progress Note Update
Pt seen and examined. Still has profound deficits after what has now been confirmed to be likely embolic stroke.
Spoke w. his son for about 30 min for what this was like for my own father who had a similar situation and the lengthy process following a stroke and to express hope for his dad to have a recovery.
On a practical level his knee incision is CDI and looks good. He is however developing contractures of both ankles and would benefit from B AFO. I would also like to see some physical therapy to move the knee passively to prevent contracture.
It IS ok from my point for him to have novel anticoagulants at any level deemed appropriate by primary team.
[2024-12-31] MEDS: ASPIRIN 300 MG RECTAL (08:03)
--- NOTE | 2024-12-31 10:59 | PTCARENOTE ---
Assumed care at 0700. VSS. On 8L, weaned to 6L SaO2 mid-high 90s, will continue to wean as able. Opens eyes to voice and tactile stimulation. Unable to answer questions appropriately or follow commands. NIHSS=22, see flowsheet for details. Son,
Abebe, at bedside, updated on plan of care.
[2024-12-31] MEDS: LOPRESSOR 12.5 MG TUBE ×2 (11:23→20:45)
--- NOTE | 2024-12-31 11:52 | PTCARENOTE ---
Dobhoff placed, metoprolol given for BP 181/81. Multipodous boots in place per PT's recommendation. Patient more easily to arouse at this time, able to verbalize his name. Otherwise, assessment unchanged.
--- NOTE | 2024-12-31 12:11 | CM ---
CM met with patient's son in room. Cm offered emotional support and will remain available. CM reviewed PT noted. SNF has been recommended. Patient currently has s Doboff tube and family is considering permanent PEG.
[2024-12-31] MEDS: NSS 1000 IV (12:23)
--- NOTE | 2024-12-31 12:28 | W.PN.HOSP.TC ---
Today's Communication/Plan
-
transfer tele
see note
Assessment / Plan
Assessment / Plan
Brain MRI
There are numerous scattered foci of abnormal diffusion-weighted signal compatible with acute to subacute infarction within both cerebral hemispheres, with involvement of the frontal, parietal, and occipital lobes. Distribution appears to be in the
vascular territory of the middle cerebral arteries and posterior cerebral arteries bilaterally. A few small foci of acute to subacute infarct involving the cerebellar hemispheres, slightly greater on the left compared to the right.
No evidence for associated hemorrhage or mass effect.
CTA h&n
Bilateral cervical carotid calcified plaque formation, as described. Right ICA estimated luminal diameter reduction of 50%. No dissection or occlusion.
No hemodynamically significant stenosis involving the left common or internal carotid artery. No [place] region aneurysm or stenosis. No cerebral artery significant plaque, stenosis, thrombus, or occlusion.
1. 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
- MRI brain showing numerous scattered abnormal diffusion weighted signal on bilateral hemisphere
- CTA head and neck did not show any critical stenosis
- Neurology following and help appreciated. Patient will be likely transition to DOAC's based on cardio/neurology opinion
- Cardiology evaluation requested for possible undiagnosed A-fib
- Patient got rectal aspirin, will switch to aspirin through [facility] once repeat CT head did not show any concerning findings
- Repeat CT head is pending today
2. Acute metabolic encephalopathy
-Patient remains with decreased responsiveness, waking up on physical touch at times
-No clear signs of seizures. Cerebril monitoring was negative for seizure
-Continue supportive care
-Double tube to be placed for nutrition while patient recovering
- Lower extremity venous Doppler negative for clot
3. Status post left TKA
-Evaluated by orthopedic surgeon, no issues with surgical site
-Patient will require rehab for TKA/stroke
4. Essential hypertension - Uncontrolled
- Out of permissive hypertension window at this stage
- Switch to Toprol through tube
- As needed hydralazine for systolic blood pressure more than 160
5. Neuropathy
-Hold gabapentin for now, patient encephalopathic
6. Normocytic anemia
- Monitor for any postop/surgical blood loss anemia
DVT PPX - scd
Full code
Care plan discussed with cardiology/customer account specialist
Total critical care time 40. Total critical care time documented does not include time spent on separately billed procedures or the services of residents, students, nurses or physician assistants. I personally saw and examined the patient. I have
reviewed all diagnostic interpretations and treatment plans as written. I was present for the byrd portions of any procedures performed and the inclusive time noted in any critical care statement. Critical care time includes patient management by me,
time spent at the patients bedside, time to review lab and imaging results, discussing patient care, documentation in the medical record, and time spent with the family or caregiver.
Anticipated Discharge: > 48 hours
Subjective/Interval History
-
Date of Service: December 31, 2024
Patient remains somnolent
no reported acute events
tele reviewed
Objective Data
-
Labs:
Laboratory Results
12/31/24
03:23
WBC 9.4
Hgb 11.0 L
Hct 33.5 L
Plt Count 136
Sodium 136
Potassium 3.8
Chloride 110 H
Carbon Dioxide 20 L
BUN 21 H
Creatinine 0.7
Glucose 109 H
Calcium 8.6
Vital Signs:
Vital Signs
Temp Pulse Resp BP Pulse Ox
98.5 F 92 17 164/80 94
12/31/24 11:10 12/31/24 11:30 12/31/24 11:30 12/31/24 11:30 12/31/24 11:34
I&O
12/30/24 12/31/24 01/01/25
06:59 06:59 06:59
Intake Total 400 / 500 2600 / 2675 465 / 465
Output Total 1100 / 1100 1225 / 1225 225 / 225
Balance -700 / -600 1375 / 1450 240 / 240
Review of Systems
-
Unable to obtain full review of systems at this time due to: Acuity
Physical Exam
-
General: No Apparent Distress and Comfortable
HEENT: Negative Oxygen
Respiratory: Clear to Auscultation
Cardiac: Regular Rhythm and S1/S2; Negative Murmur or Rub
GI: Soft, Nontender and Nondistended
Musculoskeletal: No Edema
Neuro: Negative Awake or Alert
Psych: Calm
--- NOTE | 2024-12-31 12:36 | CON.CAR ---
Addendum entered and electronically signed by Mindy Rosenbaum MD 12/31/24 16:50:
Of note there was no clear patent foramen ovale visualized on patient's transthoracic echocardiogram. Eventually transesophageal echocardiogram if able to exclude patent foramen ovale and if not able to proceed with transesophageal echo consider
saline contrast echo transthoracically which has less sensitivity and specificity compared to transesophageal echo.
Addendum entered and electronically signed by Mindy Rosenbaum MD 12/31/24 16:41:
I saw and examined the patient.
The Tugger Operator's note was reviewed and I agree with the note.
Comment: Patient's somnolence and snoring, unresponsive to verbal stimuli.
Regular rate and rhythm no murmurs. Lungs clear anteriorly.
He was initially admitted and is status post left total knee replacement 12/29/2024. Postoperatively he was initially alert and able to drink cup of coffee but then developed lethargy and became minimally responsive and stroke alert called. Brain
MRI 12/30/2024 showed numerous acute to subacute infarcts with the both cerebral hemispheres and bilaterally in the cerebellum.
CTA head and neck 12/30/2024 showed no large vessel occlusion. He was not a candidate for TNK/IAT due to major surgery day of stroke.
We are consulted for possibility of atrial fibrillation and thromboembolic events.
On telemetry there was some strips that are marked possible 'atrial fibrillation '. There is no clear atrial fibrillation seen on telemetry monitoring strips. Artifact, PACs are noted.
Echo 12/30/2024: EF 65 to 70%, normal RV size and function, mild , mild AI, dilated aortic root and ascending aorta, sinus of Valsalva 4.4 cm, sinotubular junction 4.4 cm, ascending aorta 4 cm
Impression:
CVA with numerous acute to subacute infarcts within bilateral cerebral hemispheres, thought to be cardioembolic
Hypertension
Hyperlipidemia
Right bundle branch block
Ascending aortic aneurysm
Coronary calcification on chest CT
Pharmacologic myocardial perfusion stress test 12/23/2024: Normal perfusion, EF 59%
Chest CT 09/19/2024: Ascending thoracic aorta 4.4 cm and similar to prior study, diffuse coronary artery calcifications
Plan:
Certainly concern given what appears to be per neurology embolic stroke. Continue to monitor telemetry for atrial fibrillation.
- He was not a candidate for TNK/IAT due to major surgery day of stroke
- He previously has been seen by outside cardiology and there is no history of A-fib
- Pending neurostatus eventual transesophageal echocardiogram and would prefer Linq implantable monitor for monitoring for atrial fibrillation.
- Risk factor modification. Goal LDL cholesterol less than 70. Lipids pending.
- Continue close follow-up with hospitalist service and neurology service.
Original Note:
Medical History
-
Chief Complaint: CVA
History of Present Illness:
79-year-old male status post left total knee replacement 12/29/2024. Postoperatively he was initially alert and able to drink cup of coffee but then developed lethargy and became minimally responsive and stroke alert called.
Brain MRI 12/30/2024 showed numerous acute to subacute infarcts with the both cerebral hemispheres and bilaterally in the cerebellum.
CTA head and neck 12/30/2024 showed no large vessel occlusion.
He was not a candidate for TNK/IAT due to major surgery day of stroke and no LVO
Cardiology consulted for evaluation for due to concern for possible atrial fibrillation as well as concern that strokes are cardioembolic in nature.
On telemetry and EKG pt w/ normal sinus rhythm with prolonged first-degree AV block and blocked PACs, no definitive atrial fibrillation seen. Patient has underlying right bundle branch block.
Patient with past medical history hypertension, hyperlipidemia, abdominal aortic aneurysm, right bundle branch block. He follows with [employer] Dr. Randy Quinones at [facility]. Last office visit note reviewed and no diagnosis of atrial
fibrillation. Reviewed previous EKG from 08/2024: Normal sinus rhythm with first-degree AV block, right bundle branch block
He was seen for preop clearance and had a pharmacologic nuclear stress test 12/23/2024 that showed normal perfusion, EF 59%
Past medical history:
Hypertension
Hyperlipidemia
Ascending aortic aneurysm (CT chest 09/19/2024 ascending thoracic aorta 4.4 cm)
Right bundle branch block
Coronary artery calcification on chest CT 08/2024
Osteoarthritis
Past Medical History
Past Medical History: Other (As above)
Past Surgical History: Other (Left total knee replacement 12/29/2024, left lower extremity liposarcoma removal, cystoscopy with renal stone extraction, bilateral hernia repair)
Social History
Tobacco: Former Smoker
Personal:
Living: With Family
Family History
Family History: Unable to Obtain
Allergies / Home Medications
Allergy/AdvReac Type Severity Reaction Status Date / Time
No Known Allergies Allergy Verified 12/29/24 07:37
�Medication �Instructions �Recorded �Confirmed �Type
metoprolol succinate 25 mg 25 mg PO DAILY Heart 12/10/24 12/29/24 History
tablet,extended release 24 hr Disease/Condition
multivitamin 1 tab PO DAILY Supplement 12/10/24 12/29/24 History
simvastatin 20 mg tablet 20 mg PO QPM High Cholesterol 12/10/24 12/29/24 History
vitamin B complex 1 tab PO DAILY Supplement 12/10/24 12/29/24 History
celecoxib 200 mg capsule (Celebrex) 200 mg PO DAILY #14 caps 12/20/24 Rx
dexamethasone 4 mg tablet 4 mg PO BID Anti-inflammatory #7 12/20/24 Rx
tabs
famotidine 20 mg tablet (Pepcid) 20 mg PO HS #30 tabs 12/20/24 Rx
gabapentin 300 mg capsule 300 mg PO HS neuropathic 12/20/24 Rx
pain/sleep #10 caps
mupirocin 2 % topical ointment 1 applic intranasal BID #1 tube 12/20/24 Rx
ondansetron HCl 4 mg tablet 4 mg PO Q6H PRN nausea and 12/20/24 Rx
vomiting #30 tabs
oxycodone 5 mg tablet 5 - 10 mg (1 - 2 x 5 mg) PO Q6H 12/20/24 Rx
PRN moderate-severe pain #30 tabs
acetaminophen 500 mg tablet 1,000 mg (2 x 500 mg) PO Q6H #60 12/29/24 Rx
(Acetaminophen Extra Strength) tabs
aspirin 325 mg tablet 325 mg PO DAILY #30 tabs 12/29/24 Rx
docusate sodium 100 mg capsule 100 mg PO BID #30 caps 12/29/24 Rx
(Colace)
magnesium hydroxide 400 mg/5 mL 30 ml PO HS PRN constipation 12/29/24 Rx
oral suspension (Milk of Magnesia) #3,780 mL
sennosides 8.6 mg tablet (senna) 17.2 mg (2 x 8.6 mg) PO BID #30 12/29/24 Rx
tabs
Review of Systems
-
Unable to obtain full review of systems at this time due to: Acuity
History Source: Family
Physical Exam
Vital Signs
Temp Pulse Resp BP Pulse Ox
98.5 F 92 17 164/80 94
12/31/24 11:10 12/31/24 11:30 12/31/24 11:30 12/31/24 11:30 12/31/24 11:34
Lab Results
12/31/24 03:23
12/31/24 03:23
Troponin I 0.021 ng/ml 12/30/24 00:49
GEN: awake, not responsive
HEENT: supple, anicteric, mmm
LUNGS: CTA, no wheezes/rales
CV: Reg, S1/S2,no murmur
ABD: soft, BS+, NT/ND
EXT: tr edema, compression stockings B/L, L knee incision w/ drsg
NEURO: Gross non-focal
SKIN: No rash
Impression / Plan
-
PCP:Mario Haider
Primary [employer]: Randy Quinones MD, CCP
Impression:
CVA with numerous acute to subacute infarcts within bilateral cerebral hemispheres, thought to be cardioembolic
Hypertension
Hyperlipidemia
Right bundle branch block
Ascending aortic aneurysm
Coronary calcification on chest CT
Previous cardiovascular testing:
Echo 12/30/2024: EF 65 to 70%, normal RV size and function, mild , mild AI, dilated aortic root and ascending aorta, sinus of Valsalva 4.4 cm, sinotubular junction 4.4 cm, ascending aorta 4 cm
Pharmacologic myocardial perfusion stress test 12/23/2024: Normal perfusion, EF 59%
Chest CT 09/19/2024: Ascending thoracic aorta 4.4 cm and similar to prior study, diffuse coronary artery calcifications
Plan:
79-year-old male status post left total knee replacement 12/29/2024 with postprocedure change in mental status/lethargy with stroke alert called, found to have acute and subacute infarcts compatible with stroke secondary to emboli, thought to be
cardio embolic.
- He was not a candidate for TNK/IAT due to major surgery day of stroke and no LVO
- Reviewed records from outpatient [employer] and no history of A-fib
- Telemetry and twelve-lead EKGs personally reviewed: Normal sinus rhythm with prolonged first-degree AV block, with blocked PACs, right bundle branch block. No atrial fibrillation seen on telemetry.
-repeat 12 lead EKG today
- Continue telemetry monitoring and if no A-fib detected placed 2-week Rhythmstar monitor at time of discharge versus implant loop recorder
-Eventual GABINO to evaluate for thrombus if patient condition improved and thought to be able to tolerate GABINO procedure
-Continue outpatient metoprolol
- Patient getting repeat head CT today to assess for hemorrhagic conversion
-h/o thoracic aortic aneurym stable size on TTE
-on simvastatin in outpt setting, goal LDL <70
discussed with nurse and pt's son Abebe at bedside
Data Reviewed
-
EKG: Tracing Personally Visualized and interpreted
Labs: Labs Reviewed by me
Old Records: Reviewed
--- NOTE | 2024-12-31 13:32 | PTCARENOTE ---
Dobhoff placement confirmed by Xray and Jevity 1.5 tube feeds initiated via R nare feeding tube at 20 ml/hr with 25 ml/hr flush
--- NOTE | 2024-12-31 14:29 | W.PN.NEURO.1 ---
Addendum entered and electronically signed by Artie Sesay MD 12/31/24 19:27:
I have seen and examined the patient today along with the nurse practitioner Phyllis Moser and I agree with her assessment and the management plan. The following is my addendum.
The patient is an 79 years old male who had a left total knee replacement on 12/29/2024. The patient had altered mental status postoperatively.
The MRI of the brain was done tthat showed numerous acute to subacute infarctions within the both cerebral hemispheres and bilaterally in the cerebellum.
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
On neurologic examination, the patient is drowsy and is unable to follow verbal commands. He opens eyes to painful stimulus. The patient is still unable to speak.
The EEG which was done yesterday was mildly-moderately abnormal study for age based on low amplitude even for age, generalized slowing demonstrated bihemispherically equally.
Repeat CT of the head done today showed subtle foci of decreased density within the cerebral hemispheres, mainly evident involving the frontal and parietal lobes by CT. These are compatible with regions of acute to subacute infarction.
The patient had bilateral acute to subacute infarctions secondary to emboli, likely cardioemboli. Cardiology has been consulted to evaluate for possible undiagnosed atrial fibrillation. Continue with rectal aspirin.
I had detailed discussion with the patient's son regarding the assessment and the management plan and he verbalized understanding of our discussion.
Will sign off please call if you have any question.
Original Note:
Today's Communication / Plan
-
.
Neuro Assessment/Plan
Assessment
This is an 79-year-old male who has presented to the hospital on 12/29/24 for left total knee replacement. Patient's family reports that postoperatively he initially was doing pretty well and was able to drink a cup of coffee. Shortly after he
started to be more lethargic and unable to stay alert to hold a cup in his hand.
-CT head 12/29/24: No acute intracranial abnormality noted. Aspect 10.
-CTA head/neck 12/29/24: Bilateral cervical carotid calcified plaque formation, as described. Right ICA estimated luminal diameter reduction of 50%. No dissection or occlusion. No hemodynamically significant stenosis involving the left common or
internal carotid artery. No the [place] aneurysm or stenosis. No cerebral artery significant plaque, stenosis, thrombus, or occlusion.
-CT Brain Perfusion 12/29/24: CBF 0ml, Tmax 87ml.
-MRI brain 12/30/24: There are numerous scattered foci of abnormal diffusion-weighted signal compatible with acute to subacute infarction within both cerebral hemispheres, with involvement of the frontal, parietal, and occipital lobes. Distribution
appears to be in the vascular territory of the middle cerebral arteries and posterior cerebral arteries bilaterally. A few small foci of acute to subacute infarct involving the cerebellar hemispheres, slightly greater on the left compared to the
right. No evidence for associated hemorrhage or mass effect.
-Lower extremity ultrasound: No evidence of deep venous thrombosis bilaterally.
I. Acute/subacute ischemic infarcts in bilateral cerebral and cerebellar hemispheres; etiology of stroke is likely cardioembolic.
II. L TKR 12/29/24.
Plan
-CT head noncontrast today, pending, to rule out cerebral edema due to diffuse numerous infarcts.
-Okay to resume rectal aspirin if CT head is unremarkable today.
-Goal normotension.
-Cardiology evaluation for consideration for GABINO, if this is unremarkable would recommend extended cardiac monitoring.
-LDL goal <70. Lipid panel is pending. When oral access is obtained, please increase home atorvastatin from 10mg to 40mg daily.
-Goal normoglycemia, hbA1c is 5.2.
-NIHSS and neurological checks per unit guidelines.
-Provide patient's family with a stroke education packet.
-Eventual PT/OT/ST evaluations.
-DVT prophylaxis.
Subjective/Objective
Subjective Data
Date of Service: December 31, 2024
Patient remains obtunded, minimall conversant.
Objective Data
Vital Signs
Temp Pulse Resp BP Pulse Ox
98.5 F 92 17 164/80 95
12/31/24 11:10 12/31/24 11:30 12/31/24 11:30 12/31/24 11:30 12/31/24 13:49
Lab Results
12/31/24 03:23
12/31/24 03:23
PT Cancelled 12/30/24 03:25
INR Cancelled 12/30/24 03:25
APTT Cancelled 12/30/24 03:25
Sodium 136 mmol/L (135-145) 12/31/24 03:23
Potassium 3.8 mmol/L (3.5-5.1) 12/31/24 03:23
BUN 21 mg/dl (9-20) H 12/31/24 03:23
Glucose 109 mg/dl (70-99) H 12/31/24 03:23
Calcium 8.6 mg/dl (8.4-10.2) 12/31/24 03:23
Patient Allergies
No Known Allergies Allergy (Verified 12/29/24 07:37)
Review of Systems
-
Unable to obtain full review of systems at this time due to: Lethargy
Physical Exam
-
General: No Apparent Distress
Extended Neurological Exam
Attention Span & Concentration: Lethargic, Closes Eyes after Stimulation and Other (minimally opens eyes to loud voice)
Memory: Unable to Assess (unable to provide answers to most questions, oriented to name)
Tremor: Hand Tremor Absent and Head Tremor Absent
Involuntary Movement: None
Speech: Severely Reduced Output
Cranial Nerve II: Left Eye: Pupillary Reactivity Unremarkable, Pupillary Size Unremarkable and Unable to Assess Visual Rodriguez
Cranial Nerve II: Right Eye: Pupillary Reactivity Unremarkable, Pupillary Size Unremarkable and Unable to Assess Visual Rodriguez
Cranial Nerves III, IV, : Extraocular Movement: Unable to Assess
Cranial Nerve VII: Facial Symmetry: Normal Facial Symmetry
Cranial Nerve VIII: Hearing: Unable to Assess
Cranial Nerve XI: Shoulder Shrug: Unable to Assess
Cranial Nerve XII: Tongue Protusion: Unable to Assess
Muscle Strength, Overall: Other (flicker withdrawal in all extremities to painful stimuli)
Muscle Bulk & Tone: Increased Tone
Pronator Drift: Unable to Assess
Cold Sensation: Unable to Assess
Vibration Sensation: Unable to Assess
Touch Sensation: Withdrawal to Pain
Coordination: Unable to Assess
Babinski Sign: Absent Bilaterally
Modified Nye Score (MRS)
-
Modified Nye Scale (mRS): Severe disability. Requires constant nursing care.
Score: 5
Data Reviewed
-
CT-A: Report Reviewed
CT-Perfusion: Report Reviewed and Image Reviewed
CT Head: Report Reviewed and Image Reviewed
MRI Head: Report Reviewed and Image Reviewed
Echocardiogram: Report Reviewed
Labs: Report Reviewed
Lipid Profile: Pending
HgbA1C: Report Reviewed
Reviewed with: Physician, Patient and Family
Medications
-
Active Medications
Generic Name Dose Route Start Last Admin
Trade Name Freq PRN Reason Stop Dose Admin
Acetaminophen 650 mg 12/31/24 10:21
Acetaminophen 325 Mg Tablet TUBE 01/28/25 10:20
Q6HPRN PRN
mild pain/ fever>100.5F
Aspirin 300 mg 12/30/24 16:00 12/31/24 08:03
Aspirin 300 Mg Rectal Suppository RECTAL 01/27/25 15:59 300 mg
On Hold: 12/31/24 08:26 DAILY KENZIE Administration
Enoxaparin Sodium 40 mg 12/30/24 18:00 12/30/24 17:17
Enoxaparin Sodium 40 Mg/0.4 Ml Syringe SC 01/27/25 17:59 40 mg
On Hold: 12/31/24 09:35 QPM KENZIE Administration
Famotidine 20 mg 12/31/24 22:00
Famotidine 20 Mg Tablet TUBE 01/28/25 21:59
HS KENZIE
Sodium Chloride 1,000 mls @ 75 mls/hr 12/30/24 12:00 12/31/24 12:23
Nss IV 1,000 mls
.[id number] KENZIE Administration
Metoprolol Tartrate 12.5 mg 12/31/24 10:00 12/31/24 11:23
Metoprolol 12.5 Mg Regular Release Dose (1/2 Of 25 Mg Tablet) TUBE 01/28/25 09:59 12.5 mg
BID KENZIE Administration
Ondansetron HCl 4 mg 12/29/24 17:58
Ondansetron 4 Mg/2 Ml Vial IV 01/26/25 17:57
Q6HPRN PRN
NAUSEA
Tamsulosin HCl 0.4 mg 12/29/24 17:58 12/29/24 18:37
Tamsulosin 0.4 Mg Capsule PO 01/26/25 17:57 0.4 mg
DAILYPRN PRN Administration
bladder scan volume > 400 mL
Home Medications
�Medication �Instructions �Recorded
metoprolol succinate 25 mg 25 mg PO DAILY Heart 12/10/24
tablet,extended release 24 hr Disease/Condition
multivitamin 1 tab PO DAILY Supplement 12/10/24
simvastatin 20 mg tablet 20 mg PO QPM High Cholesterol 12/10/24
vitamin B complex 1 tab PO DAILY Supplement 12/10/24
celecoxib 200 mg capsule (Celebrex) 200 mg PO DAILY #14 caps 12/20/24
dexamethasone 4 mg tablet 4 mg PO BID Anti-inflammatory #7 12/20/24
tabs
famotidine 20 mg tablet (Pepcid) 20 mg PO HS #30 tabs 12/20/24
gabapentin 300 mg capsule 300 mg PO HS neuropathic 12/20/24
pain/sleep #10 caps
mupirocin 2 % topical ointment 1 applic intranasal BID #1 tube 12/20/24
ondansetron HCl 4 mg tablet 4 mg PO Q6H PRN nausea and 12/20/24
vomiting #30 tabs
oxycodone 5 mg tablet 5 - 10 mg (1 - 2 x 5 mg) PO Q6H 12/20/24
PRN moderate-severe pain #30 tabs
acetaminophen 500 mg tablet 1,000 mg (2 x 500 mg) PO Q6H #60 12/29/24
(Acetaminophen Extra Strength) tabs
aspirin 325 mg tablet 325 mg PO DAILY #30 tabs 12/29/24
docusate sodium 100 mg capsule 100 mg PO BID #30 caps 12/29/24
(Colace)
magnesium hydroxide 400 mg/5 mL 30 ml PO HS PRN constipation 12/29/24
oral suspension (Milk of Magnesia) #3,780 mL
sennosides 8.6 mg tablet (senna) 17.2 mg (2 x 8.6 mg) PO BID #30 12/29/24
tabs
[2024-12-31 14:52] LABS: HDL Cholesterol 50 mg/dl; LDL Cholesterol, Calculated 38 mg/dl; Very Low Density Lipoprotein 18 mg/dl (0-30)
[2024-12-31 15:28] LABS: Ferritin 75.9 ng/ml (17.9-464.0)
--- NOTE | 2024-12-31 15:41 | PN.CDI ---
CDI
- -
CDI:
Physician Documentation Request
Admit Date: 12/30/24 13:49
Dear Doctor Dinesh,
Clinical Indicators:
Hospitalist H & P, Physical Exam: Mild respiratory distress with tachypnea and mild diaphoresis
'By time I saw the patient he is oxygen requirement was mid flow at 15 L and
was satting 93%...Unexplained hypoxia...'
ABG:
12/30/24
00:03
pH 7.44
pCO2 33 L
pO2 57 L*
HCO3 22.4
ABG O2 Sat (Measured) 90.1 L
O2 requirements:
12/30/24
03:09 12/31/24
09:00 12/31/24
09:52
Nasal Cannula flow liters per minute 15 8 6
Please clarify which of the following accurately represents the patient's respiratory status following surgery:
Acute postoperative pulmonary insufficiency
Acute hypoxic respiratory failure
Hypoxia only
Other, please specify
Additional information for Pulmonary Insufficiency:
Consider when patients require extermination supervisor oxygen therapy postoperatively
Weaned off oxygen initially then requiring supplemental oxygen
No other definitive diagnosis to support the need for oxygen (COPD exac, CHF etc.)
Unable to wean from vent
When criteria for respiratory failure not present
May extend stay or require additional resources; may need home O2
Additional information for Respiratory Failure:
Recognized criteria for Respiratory Failure (Source: [facility] Hospitalist Jan 2013)
ABGs: (1 or more) Symptoms Indicate:
1. p)2 <60 or RA SPO2 <91% on RA 1. Tachypnea, SOB, dyspnea 1. Type as:
2. pCO2 50 and pH <7.35 2. Use of accessory muscles a. Hypoxic
3. pO2 decrease of pCO2 increase by 3. Pallor or cyanosis b. Hypercapnic
10 mmHg from baseline if known 4. Anxiety or restlessness 2. If due to procedure or due to another cause
5. Unable to speak in full sentences
Supplemental O2 of > 40% Intubation is not required
Use of terms such as suspected, likely, concern for, or probable (associated with a specific diagnosis that is being evaluated, monitored, or treated as if it exists) are acceptable and can be coded in the inpatient setting, when documented at the
time of discharge.
Thank you,
TREVON Florence RN
CDI Specialist
available via tiger text
Please use your independent medical judgment in providing your response.
[2024-12-31 16:00] LABS: Folate 8.4 ng/ml (2.76-20); Vitamin B12 528 pg/ml (239-931)
--- NOTE | 2024-12-31 16:48 | W.PN.UPDATE ---
Update Note
Progress Note Update
spoke w/ son Abebe [phone]. Had questions about pt having afib on monitoring. We have reviewed telemetry from PACU, 2North, IMU, and ICU. No clear evidence of atrial fibrillation seen. Pt in sinus rhythm with first degree AVB (~304 ms),
PACs. Told him we will continue to monitor for afib on telemetry and will recommend LINQ monitor in outpt setting if no afib detected in hospital.
10 min call
--- NOTE | 2024-12-31 17:20 | PTCARENOTE ---
Telephone report received from MULTI PURPOSE MACHINE OPERATOR [place]; patient arrived in bed @1720 with DobHoff in (R) nare Jevity 1.5 @20/hr and Water Flush @25/hr, Condom Cath #21 keira, REHANA, family at bedside.
[2024-12-31] MEDS: DESENEX/MITRAZOL/ZEASORB 1 APPLIC TOPICAL (20:45)
[2024-12-31] MEDS: PEPCID 20 MG TUBE (21:00)
[2025-01-01 04:05] VITALS: BP 120/72
[2025-01-01 07:53] VITALS: BP 146/57
[2025-01-01] MEDS: DESENEX/MITRAZOL/ZEASORB 1 APPLIC TOPICAL ×2 (08:26→22:17)
[2025-01-01] MEDS: TYLENOL 650 MG TUBE ×2 (08:26→22:18)
[2025-01-01] MEDS: LOPRESSOR 12.5 MG TUBE ×2 (08:32→22:21)
--- NOTE | 2025-01-01 09:17 | W.PN.UPDATE ---
Update Note
Progress Note Update
79-year-old male POD #3 uneventful L TKA (29 Dec 2024) with Dr. Nicholas. Son, Abebe, at the bedside. The MRI of the brain showed numerous acute to subacute infarctions within the both cerebral hemispheres and bilaterally in the cerebellum. This was
likely cardioembolic, per Neuro. Abebe reports that his dad was better able to recognize him this morning. He was also able to smile at pictures Abebe showed him. Left knee bandage CDI. Multipodus boots to B/L lower extremities. PT/OT to move the knee
passively to prevent contracture. Appreciate the primary team, consultants, and CM; continue treatment. Continue with rectal aspirin. Orthopedic surgery will continue to follow along while admitted and support the family as we can.
[2025-01-01 10:05] LABS: Hematocrit 30.3 % (39.0-52.0); Hemoglobin 10.7 g/dL (13.0-18.0); Mean Corp Hgb Conc. 35.3 g/dL (33.0-37.0); Mean Corpuscular Volume 93.5 fL (80.0-94.0); Platelet Count 129 10^3/uL (130-400); Red Cell Dist. Width 13.2 % (11.5-14.5)
[2025-01-01 10:32] LABS: Blood Urea Nitrogen 21 mg/dl (9-20); Calcium 8.7 mg/dl (8.4-10.2); Carbon Dioxide 22 mmol/L (22-30); Chloride 109 mmol/L (98-107); Estimated Creatinine Clearance 102 ml/min; Glucose 154 mg/dl (70-99); Potassium 3.5 mmol/L (3.5-5.1); Sodium 135 mmol/L (135-145); eGFR > 60.00
[2025-01-01 11:58] VITALS: BP 158/70
--- NOTE | 2025-01-01 12:02 | W.PN.CARDCBS ---
Today's Communication / Plan
-
Continue supportive care
Continue telemetry monitoring
Eventual GABINO if feasible
Impression / Plan
-
PCP:Mario Haider
Primary assistant import manager: Randy Quinones MD, CCP
Left total knee replacement 12/29/2024. Postoperatively he was initially alert and able to drink cup of coffee but then developed lethargy and became minimally responsive and stroke alert called.
Brain MRI 12/30/2024 showed numerous acute to subacute infarcts with the both cerebral hemispheres and bilaterally in the cerebellum.
CTA head and neck 12/30/2024 showed no large vessel occlusion. He was not a candidate for TNK/IAT due to major surgery day of stroke.
Cardiology consulted for possibility of atrial fibrillation and concern for thromboembolic events.
On telemetry there was some strips that are marked possible 'atrial fibrillation ' however visual inspection finds no clear atrial fibrillation on telemetry monitoring strips. Instead, there is artifact as well as PACs.
Echo 12/30/2024: Nl sized LA and RA, EF 65 to 70%, normal RV size and function, mild , mild AI, dilated aortic root and ascending aorta, sinus of Valsalva 4.4 cm, sinotubular junction 4.4 cm, ascending aorta 4 cm
Impression:
CVA with numerous acute to subacute infarcts within bilateral cerebral hemispheres, thought to be cardioembolic
Hypertension
Hyperlipidemia
Right bundle branch block
Ascending aortic aneurysm
Coronary calcification on chest CT
Pharmacologic myocardial perfusion stress test 12/23/2024: Normal perfusion, EF 59%
Chest CT 09/19/2024: Ascending thoracic aorta 4.4 cm and similar to prior study, diffuse coronary artery calcifications
Peripheral venous ultrasound performed 12/31/2024 finds no evidence of deep venous thrombosis bilateral lower extremities.
Plan:
Concern for embolic stroke. No clear etiology yet, no definite AF
- He was not a candidate for TNK/IAT due to major surgery day of stroke
- He previously has been seen by outside cardiology and there is no history of A-fib
- Pending neurostatus eventual transesophageal echocardiogram and plan for 2-week Rhythmstar monitor at time of discharge. If no AF on 2 weeks monitoring, then place implantable loop recorder to eval for AF as etiology of cryptogenic CVA. If
transesophageal echo cannot be safely done, would do transthoracic echocardiogram with bubble study to assess for any [id number] shunt.
- Risk factor modification. Goal LDL cholesterol less than 70. LDL on 12/31 is 38
Was on simvastatin as an outpatient, not sure why it was stopped this hospital stay. Would resume unless there is a contraindication I am unaware of.
- Continue close follow-up with hospitalist service and neurology service.
Discussed with his son at bedside. All of his questions answered.
Total time spent today was 55 minutes in preparing to see the patient, seeing the patient and coordination of care. This included review of recent laboratory evaluations, cardiact testing, imaging studies, primary care rtecords, specialty
consultations, hospital records, as well as personally interviewing and examining the patient, which included discussion of their tests, review/ordering medications, and communicating with other healthcare professionals and also treatment planning
as well as counseling.
Total time does not include separately billed tests performed on this date of service.
Progress Note - Immunochemist
Subjective
Date of Service: January 01, 2025
He is somnolent but arousable and following some simple commands.
Objective
Labs:
01/01/25 09:42
01/01/25 09:42
Labs
Hgb 10.7 g/dL (13.0-18.0) L 01/01/25 09:42
Hct 30.3 % (39.0-52.0) L 01/01/25 09:42
Plt Count 129 10^3/uL (130-400) L 01/01/25 09:42
PT Cancelled 12/30/24 03:25
INR Cancelled 12/30/24 03:25
APTT Cancelled 12/30/24 03:25
Sodium 135 mmol/L (135-145) 01/01/25 09:42
Potassium 3.5 mmol/L (3.5-5.1) 01/01/25 09:42
BUN 21 mg/dl (9-20) H 01/01/25 09:42
Creatinine 0.7 mg/dL (0.7-1.3) 01/01/25 09:42
Glucose 154 mg/dl (70-99) H 01/01/25 09:42
Troponins
12/30/24
00:49
Troponin I 0.021
Vital Signs and I&O:
Vital Signs
Temp Pulse Resp BP Pulse Ox
97.8 F 70 14 158/70 95
01/01/25 11:58 01/01/25 11:58 01/01/25 11:58 01/01/25 11:58 01/01/25 11:58
Vital Signs
Temp Pulse Resp BP Pulse Ox
97.8 F 70 14 158/70 95
01/01/25 11:58 01/01/25 11:58 01/01/25 11:58 01/01/25 11:58 01/01/25 11:58
Intake & Output
12/30/24 12/31/24 01/01/25 01/02/25
06:59 06:59 06:59 05:59
Intake Total 400 / 500 2600 / 2675 900 / 900
Output Total 1100 / 1100 1225 / 1225 225 / 225
Balance -700 / -600 1375 / 1450 675 / 675
Physical Exam
Physical Exam
No acute distress,
Sleeping, wearing nasal cannula oxygen, is arousable.
Regular rate and rhythm with normal S1 and S2, no S3 no S4 degree 1/6 apical holosystolic murmur no rub
Lungs are clear to auscultation bilaterally without wheezes rales or rhonchi
Abdomen soft nontender nondistended with normoactive bowel sound
EXTR show no clubbing cyanosis. There is trace pretibial edema bilaterally
--- NOTE | 2025-01-01 13:11 | PTOTSP ---
ST Acute Care Evaluations
Dysphagia evaluation and cognitive communication evaluation were limited due to the pt's overall lethargy and eventual inability to remain sufficiently alert to safely and meaningfully participate in the evaluation. However, pt was able to exhibit
the ability to follow simple directions and answer simple questions when provided with extended wait time and repetitions of the information. Pt also demonstrated the ability to verbalize his first/last name, , the current month, and the response
to a deductive reasoning task regarding the current location. Pt was hypoverbal and telegraphic in his verbal output - only providing content responses in a few words when presented with a question. Pt was noted to have a L visual field preference,
even with MAX prompting/assistance, as well as a L facial droop. Pt's speech was mildly dysarthric that was fairly intelligible to an unfamiliar listener when provided with context. Pt's voice was mildly weak, hoarse, and breathy.
Pt also presents with reduced oral awareness with pooling of secretions, reduced secretion management with drooling from L labial seal, audibly reduced cough strength, and reduced airway protection as evident by suspected penetration/aspiration
events with secretions and oral care. Pt is currently dependent on intermittent suctioning via yankauer for secretions. Pt was able to maintain a clear vocal quality and fairly patent-sounding airway throughout session, but due to pt's decline in
alertness, PO trials were withheld for safety concerns. PO intake is contraindicated at this time.
Recommendations:
- Continue with STRICT NPO status (no oral meds or ice chips).
- Temporary alternative means of nutrition, hydration, and meds via dobhoff tube.
- Strict aspiration and reflux precautions: HOB upright as often as possible; turn of TF when lying pt laterally for care; oral care QID with suctioning; suctioning PRN for excess secretions.
- POSSUM TRAPPER to f/u re: re-assessment for pt's candidacy for PO diet initiation.
- POSSUM TRAPPER to f/u re: further assessment of cognitive communication skills.
- Pt will benefit from continued POSSUM TRAPPER services at next level of care, provided pt and pt's family's GOC remain restorative.
--- NOTE | 2025-01-01 13:34 | W.PN.HOSP.TC ---
Today's Communication/Plan
-
Continue supportive care
Resume Lovenox 40 mg every afternoon
Aspirin 81 mg through tube ordered
Assessment / Plan
Assessment / Plan
Brain MRI
There are numerous scattered foci of abnormal diffusion-weighted signal compatible with acute to subacute infarction within both cerebral hemispheres, with involvement of the frontal, parietal, and occipital lobes. Distribution appears to be in the
vascular territory of the middle cerebral arteries and posterior cerebral arteries bilaterally. A few small foci of acute to subacute infarct involving the cerebellar hemispheres, slightly greater on the left compared to the right.
No evidence for associated hemorrhage or mass effect.
CTA h&n
Bilateral cervical carotid calcified plaque formation, as described. Right ICA estimated luminal diameter reduction of 50%. No dissection or occlusion.
No hemodynamically significant stenosis involving the left common or internal carotid artery. No [place] aneurysm or stenosis. No cerebral artery significant plaque, stenosis, thrombus, or occlusion.
1. 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
- MRI brain showing numerous scattered abnormal diffusion weighted signal on bilateral hemisphere
- CTA head and neck did not show any critical stenosis
- Neurology following and help appreciated. Patient will be likely transition to DOAC's based on cardio/neurology opinion
- Cardiology evaluation requested for possible undiagnosed A-fib, considering GABINO/Linq if unable to diagnosis of afib on tele.
- Repeat CT head yesterday showed evolving stroke. No signs of hemorrhagic conversion
- Started on baby aspirin through [facility]
2. Acute metabolic encephalopathy - Ongoing
-Patient remains with decreased responsiveness, waking up on physical touch at times
-No clear signs of seizures. Cerebril monitoring was negative for seizure
-Continue supportive care
-Lower extremity venous Doppler negative for clot
3. Status post left TKA
-Evaluated by orthopedic surgeon, no issues with surgical site
-Patient will require rehab for TKA/stroke
4. Essential hypertension - Uncontrolled
- Out of permissive hypertension window at this stage
- Switch to Toprol through tube
- As needed hydralazine for systolic blood pressure more than 160
5. Neuropathy
-Hold gabapentin for now, patient encephalopathic
6. Normocytic anemia
- Monitor for any postop/surgical blood loss anemia
DVT PPX - Lovenox
Full code
Patient remains at risk of further complication due to decreased wakefulness.
Patient son at bedside and care plan updated
Care plan discussed with orthopedic surgeon/neurology
Anticipated Discharge: > 48 hours
Subjective/Interval History
-
Date of Service: January 01, 2025
Patient remains with decreased wakefulness
Son at bedside and apparently the morning patient was waking up and recognizing family
No telemetry event reported
No acute issues reported by nurse
Objective Data
-
Labs:
Laboratory Results
01/01/25
09:42
WBC 8.2
Hgb 10.7 L
Hct 30.3 L
Plt Count 129 L
Sodium 135
Potassium 3.5
Chloride 109 H
Carbon Dioxide 22
BUN 21 H
Creatinine 0.7
Glucose 154 H
Calcium 8.7
Vital Signs:
Vital Signs
Temp Pulse Resp BP Pulse Ox
97.8 F 70 14 158/70 95
01/01/25 11:58 01/01/25 11:58 01/01/25 11:58 01/01/25 11:58 01/01/25 11:58
I&O
12/31/24 01/01/25 01/02/25
06:59 06:59 05:59
Intake Total 2600 / 2675 900 / 900
Output Total 1225 / 1225 225 / 225
Balance 1375 / 1450 675 / 675
Review of Systems
-
Unable to obtain full review of systems at this time due to: Acuity
Physical Exam
-
General: No Apparent Distress and Comfortable
HEENT: Negative Oxygen
Respiratory: Clear to Auscultation
Cardiac: Regular Rhythm and S1/S2; Negative Murmur or Rub
GI: Soft, Nontender and Nondistended
Musculoskeletal: No Edema
Neuro: Negative Awake or Alert
Psych: Calm
[2025-01-01] MEDS: LOW STRENGTH ASPIRIN 81 MG TUBE (14:44)
[2025-01-01 16:26] VITALS: BP 156/77
[2025-01-01 19:00] VITALS: BP 142/72
[2025-01-01] MEDS: PEPCID 20 MG TUBE (22:18)
[2025-01-01 23:15] VITALS: BP 152/78
[2025-01-01 23:56] LABS: Glucose - Point of Care 152 mg/dl (70-99)
[2025-01-02 03:00] VITALS: BP 147/66
[2025-01-02 06:00] VITALS: BMI 31.9
[2025-01-02 06:18] LABS: Glucose - Point of Care 114 mg/dl (70-99)
[2025-01-02 06:22] LABS: Hematocrit 31.1 % (39.0-52.0); Hemoglobin 10.9 g/dL (13.0-18.0); Mean Corp Hgb Conc. 35.0 g/dL (33.0-37.0); Mean Corpuscular Volume 92.8 fL (80.0-94.0); Platelet Count 149 10^3/uL (130-400); Red Cell Dist. Width 13.3 % (11.5-14.5)
[2025-01-02 06:51] LABS: Blood Urea Nitrogen 21 mg/dl (9-20); Calcium 8.8 mg/dl (8.4-10.2); Carbon Dioxide 23 mmol/L (22-30); Chloride 110 mmol/L (98-107); Estimated Creatinine Clearance 118 ml/min; Glucose 133 mg/dl (70-99); Potassium 3.7 mmol/L (3.5-5.1); Sodium 140 mmol/L (135-145); eGFR > 60.00
[2025-01-02 07:20] VITALS: BP 153/88
[2025-01-02] MEDS: DESENEX/MITRAZOL/ZEASORB 1 APPLIC TOPICAL ×2 (08:44→23:02)
[2025-01-02] MEDS: LOPRESSOR 12.5 MG TUBE (08:44)
[2025-01-02] MEDS: LOW STRENGTH ASPIRIN 81 MG TUBE (08:45)
--- NOTE | 2025-01-02 09:13 | W.PN.UPDATE ---
Update Note
Progress Note Update
The patient was seen and examined by Orthopedic surgery this morning on rounds. POD #4 uneventful L TKA (29 Dec 2024) with Dr. Nicholas. Son, Abebe, at the bedside. The MRI of the brain showed numerous acute to subacute infarctions within the both
cerebral hemispheres and bilaterally in the cerebellum. This was likely cardioembolic, per Neuro. On encounter, the patient is somnolent but arousable. Dobhoff tube in place. Patient's voice is mildly weak and breathy. Left knee bandage CDI.
Calf is soft. PT/OT as tolerated to move the knee passively to prevent contracture. Appreciate the primary team, all consultants, and CM; continue treatment. Orthopedic surgery will continue to follow along while admitted and support the family
as we can.
[2025-01-02 11:15] VITALS: BP 123/69
[2025-01-02 13:03] LABS: Glucose - Point of Care 122 mg/dl (70-99)
--- NOTE | 2025-01-02 13:19 | W.PN.HOSP.TC ---
Addendum entered and electronically signed by Tiago Montiel MD 01/02/25 15:41:
Add onto diagnosis list
Acute hypoxic respiratory failure -postoperatively patient requiring oxygen through mid flow. currently on NC PRN
Original Note:
Today's Communication/Plan
-
monitor for neurological recovery
CT head repeated, no new findings
await repeat neuro evaluation
Assessment / Plan
Assessment / Plan
Brain MRI
There are numerous scattered foci of abnormal diffusion-weighted signal compatible with acute to subacute infarction within both cerebral hemispheres, with involvement of the frontal, parietal, and occipital lobes. Distribution appears to be in the
vascular territory of the middle cerebral arteries and posterior cerebral arteries bilaterally. A few small foci of acute to subacute infarct involving the cerebellar hemispheres, slightly greater on the left compared to the right.
No evidence for associated hemorrhage or mass effect.
CTA h&n
Bilateral cervical carotid calcified plaque formation, as described. Right ICA estimated luminal diameter reduction of 50%. No dissection or occlusion.
No hemodynamically significant stenosis involving the left common or internal carotid artery. No [place] of [place] region aneurysm or stenosis. No cerebral artery significant plaque, stenosis, thrombus, or occlusion.
1. 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
- MRI brain showing numerous scattered abnormal diffusion weighted signal on bilateral hemisphere
- CTA head and neck did not show any critical stenosis
- Neurology following and help appreciated. Patient will be likely transition to DOAC's based on cardio/neurology opinion
- Cardiology evaluation requested for possible undiagnosed A-fib, considering GABINO/Linq if unable to diagnosis of afib on tele.
- Repeat CT head yesterday showed evolving stroke. No signs of hemorrhagic conversion
- Started on baby aspirin through [facility]
- Yesterday night patient had repeat episode of questionable increased NIH score. In the morning patient opening eyes but not following command. Discussed with neurology, recommended CT head which did not show any new changes. Await further input
for possible need of initiation of AED
2. Acute metabolic encephalopathy - Ongoing
-Patient remains with decreased responsiveness, waking up on physical touch at times
-No clear signs of seizures. Ceribell monitoring was negative for seizure
-Continue supportive care
-Lower extremity venous Doppler negative for clot
3. Status post left TKA
-Evaluated by orthopedic surgeon, no issues with surgical site
-Patient will require rehab for TKA/stroke
4. Essential hypertension - Uncontrolled
- Out of permissive hypertension window at this stage
- Switch to Toprol through tube
- As needed hydralazine for systolic blood pressure more than 160
5. Neuropathy
-Hold gabapentin for now, patient encephalopathic
6. Normocytic anemia
- Monitor for any postop/surgical blood loss anemia
DVT PPX - Lovenox
Full code
Patient remains at risk of further complication due to decreased wakefulness.
Patient son at bedside and care plan updated
Anticipated Discharge: > 48 hours
Subjective/Interval History
-
Date of Service: January 02, 2025
Patient had reportedly increased NIH score last evening although later on repeat exam was felt to be at current baseline
Patient remains minimally responsive
Opening eyes although not following commands
Objective Data
-
Labs:
Laboratory Results
01/02/25
05:19
WBC 8.5
Hgb 10.9 L
Hct 31.1 L
Plt Count 149
Sodium 140
Potassium 3.7
Chloride 110 H
Carbon Dioxide 23
BUN 21 H
Creatinine 0.6 L
Glucose 133 H
Calcium 8.8
Vital Signs:
Vital Signs
Temp Pulse Resp BP Pulse Ox
97.9 F 77 18 123/69 95
01/02/25 11:15 01/02/25 11:15 01/02/25 11:15 01/02/25 11:15 01/02/25 11:15
I&O
01/01/25 01/02/25 01/03/25
06:59 05:59 06:59
Intake Total 900 / 900
Output Total 225 / 225 1050 / 1050 300 / 300
Balance 675 / 675 -1050 / -1050 -300 / -300
Review of Systems
-
Unable to obtain full review of systems at this time due to: Acuity
Physical Exam
-
General: No Apparent Distress and Comfortable
HEENT: Negative Oxygen
Respiratory: Clear to Auscultation
Cardiac: Regular Rhythm and S1/S2; Negative Murmur or Rub
Neuro: Awake; Negative Alert or Oriented
Psych: Calm
[2025-01-02 15:35] VITALS: BP 146/85
[2025-01-02] MEDS: LOVENOX 40 MG SC (17:21)
[2025-01-02 18:22] LABS: Glucose - Point of Care 133 mg/dl (70-99)
[2025-01-02 19:05] VITALS: BP 123/76
[2025-01-02 20:52] LABS: B.E. 1.5 mmol/L; HCO3 23.7 mmol/L (21-28); O2 Saturation % 93.6 % (94-98); PCO2 29 mmHg (35-48); PO2 62 mmHg (83-108)
[2025-01-02] MEDS: PEPCID 20 MG TUBE (21:21)
[2025-01-02] MEDS: LOPRESSOR TUBE (21:21)
[2025-01-02 23:03] VITALS: BP 127/79
[2025-01-03] VITALS (10 sets, daily range): BP systolic 124–148; BP diastolic 66–78; PULSE 68–91; O2SAT 93–95; BMI 32.0
[2025-01-03 00:04] LABS: Glucose - Point of Care 155 mg/dl (70-99)
--- NOTE | 2025-01-03 04:50 | PTCARENOTE ---
pt was observed having apneic episodes and snoring during NIHSS assessment, 02 at 2lpm sat 89-90. SBAR notified EVENT PROMOTIONS COORDINATOR pt to have CPAP , EVENT PROMOTIONS COORDINATOR ordered labs and cpap. Respiratory initiated cpap per orders.
[2025-01-03 06:20] LABS: Glucose - Point of Care 158 mg/dl (70-99)
--- NOTE | 2025-01-03 06:40 | W.PN.UPDATE ---
Update Note
Progress Note Update
The patient was seen this AM on rounds. POD #5 uneventful L TKA (29 Dec 2024) with Dr. Nicholas. The MRI of the brain showed numerous acute to subacute infarctions within the both cerebral hemispheres and bilaterally in the cerebellum. This was
likely cardioembolic, per Neuro. Evolving CVA. On encounter, the patient is somnolent but arousable. Responds to verbal commands with head shake. Left knee bandage CDI. Calf is soft. PT/OT as tolerated to move the knee passively to prevent
contracture. Appreciate the primary team, all consultants, and CM; continue treatment. Orthopedic surgery will continue to follow along while admitted and support the family as we can.
--- NOTE | 2025-01-03 06:55 | W.PN.UPDATE ---
Update Note
Progress Note Update
Patient with periods of apnea late last evening. ABG done 2-4L. 7. CPAP added.
[2025-01-03 07:11] LABS: Hematocrit 31.9 % (39.0-52.0); Hemoglobin 11.1 g/dL (13.0-18.0); Mean Corp Hgb Conc. 34.8 g/dL (33.0-37.0); Mean Corpuscular Volume 94.9 fL (80.0-94.0); Platelet Count 166 10^3/uL (130-400); Red Cell Dist. Width 13.3 % (11.5-14.5)
[2025-01-03 07:35] LABS: Blood Urea Nitrogen 30 mg/dl (9-20); Calcium 9.1 mg/dl (8.4-10.2); Carbon Dioxide 25 mmol/L (22-30); Chloride 107 mmol/L (98-107); Estimated Creatinine Clearance 118 ml/min; Glucose 154 mg/dl (70-99); Potassium 4.1 mmol/L (3.5-5.1); Sodium 137 mmol/L (135-145); eGFR > 60.00
[2025-01-03] MEDS: DESENEX/MITRAZOL/ZEASORB 1 APPLIC TOPICAL ×2 (08:18→21:45)
[2025-01-03] MEDS: LOW STRENGTH ASPIRIN 81 MG TUBE (08:18)
[2025-01-03] MEDS: LOPRESSOR TUBE ×2 (08:19→21:44)
--- NOTE | 2025-01-03 12:30 | W.PN.PUL3 ---
Addendum entered and electronically signed by Yossi Farley MD 01/03/25 13:02:
Dr. Dorsey updated son at the bedside in detail.
Original Note:
Today's Communication / Plan
-
Continue CPAP 10 cm of water at bedtime
Eventual nocturnal pulse oximetry closer to discharge
Avoid sedatives
Head of the bed elevation
Assessment
-
This is an 79 y/o male with pmhx of end-stage knee osteoarthritis, hyperlipidemia, hypertension who underwent an uncomplicated left total knee arthoplasty on 12/29/2024 and gradually developed altered mental status throughout the day following his
procedure with new acute hypoxic respiratory insufficiency postoperatively,-- found to have brain infarction on MR-
Pulmonary reconsulted 01/03/2025 for nocturnal hypoxemia and apnea events.
Nocturnal hypoxemia: Suspect obstructive sleep apnea.
ABG without evidence of chronic hypercapnia.
Initial acute hypoxemic respiratory failure likely due to hypoventilation-Resolved
-
Cardioembolic acute CVA during this hospital stay
Echocardiogram: Normal LVEF. No significant valvular abnormalities.
Status post left total knee replacement 12/29/2024.
Atrial fibrillation.
Conditions present prior admission:
Hypertension
Hyperlipidemia
AAA
History of liposarcoma
Osteoarthritis
Nephrolithiasis
Assessment and plan:
-
Patient likely has obstructive sleep apnea-possibly some degree of Joel-Patterson respirations due to recent stroke.
ABG without evidence of chronic hypercapnia. No evidence for chronic metabolic acidosis either. Does not qualify for BiPAP or noninvasive mechanical ventilation. There is no evidence for chronic hypercapnic respiratory failure.
-
Ideally sleep study will be necessary-unclear whether this patient will be able to sit for it.
Patient is alert but will not follow commands. Does not have a break of effort.
He is at risk for aspiration as well. Discussed with nursing.
While in the hospital on CPAP will need close observation.
Will limit as much as possible-unfortunately, with his mental status he is unable to pull the mask off if there was a emesis event.
-
Can continue with current CPAP settings while in the hospital if patient tolerates at 10 cm of water. Can use at night and with naps.
Head of the bed elevation
If he goes to rehab can continue CPAP therapy
After that can be discharged on nocturnal oxygen therapy until he can perform a sleep study.
-
Closer to discharge can perform nocturnal oxygen oximetry and start nocturnal oxygen.
Will continue to follow.
-
Avoid sedatives
Encourage incentive spirometry
-
Outpatient pulmonary follow-up eventually. Information will be left in the chart.
Subjective Data
-
Date of Service:
Date of Service: January 03, 2025
Chief Complaint: Pulmonary Follow Up (Nocturnal hypoxemia)
Subjective:
Patient offers no pulmonary complaints at this point.
Review of Systems
Cardiopulmonary: Dyspnea (None at rest)
Neuro: Headache (n)
Objective Data
Data Reviewed
Vital Signs / I&O / Oxygen:
Vital Signs
Temp Pulse Resp BP Pulse Ox
97.4 F 68 17 139/72 96
01/03/25 07:35 01/03/25 07:35 01/03/25 07:35 01/03/25 08:19 01/03/25 08:16
Intake and Output
01/02/25 01/03/25 01/04/25
05:59 06:59 06:59
Intake Total 960 / 960
Output Total 1050 / 1050 1450 / 1450
Balance -1050 / -1050 -490 / -490
SaO2 96
Nasal Cannula flow liters per 2
minute
Physical Exam
General: Comfortable
HEENT: Normocephalic
Cardiovascular: S1-S2 and Regular Rhythm
Respiratory: Clear and Non-Labored Respirations
GI: Soft and Non Distended
Neurology: Awake, Alert and No Motor Deficits
Labs/Micro/Reports
Lab Data
01/03/25 06:07
01/03/25 06:06
Laboratory Results
01/02/25
20:41
pH 7.52 H
pCO2 29 L
pO2 62 L
HCO3 23.7
O2 Delivery Level
Microbiology
12/30/24 10:23 Blood/Venous Blood Culture - Preliminary
No Growth in 4 days- Final report to follow
12/30/24 10:23 Blood/Venous Blood Culture - Preliminary
No Growth in 4 days- Final report to follow
--- NOTE | 2025-01-03 12:39 | W.PN.HOSP.TC ---
Today's Communication/Plan
-
Monitor vital signs and see plan
Pulmonary evaluation
Cardiology to evaluate
Continue with the above with tube feeding
Continue aspirin
Discussed with son in length
Assessment / Plan
Assessment / Plan
Brain MRI
There are numerous scattered foci of abnormal diffusion-weighted signal compatible with acute to subacute infarction within both cerebral hemispheres, with involvement of the frontal, parietal, and occipital lobes. Distribution appears to be in the
vascular territory of the middle cerebral arteries and posterior cerebral arteries bilaterally. A few small foci of acute to subacute infarct involving the cerebellar hemispheres, slightly greater on the left compared to the right.
No evidence for associated hemorrhage or mass effect.
CTA h&n
Bilateral cervical carotid calcified plaque formation, as described. Right ICA estimated luminal diameter reduction of 50%. No dissection or occlusion.
No hemodynamically significant stenosis involving the left common or internal carotid artery. No [place] of [place] region aneurysm or stenosis. No cerebral artery significant plaque, stenosis, thrombus, or occlusion.
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
- MRI brain showing numerous scattered abnormal diffusion weighted signal on bilateral hemisphere
- CTA head and neck did not show any critical stenosis
- Neurology following and help appreciated. Patient will be likely transition to DOAC's based on cardio/neurology opinion
- Cardiology evaluation requested for possible undiagnosed A-fib, considering GABINO/Linq if unable to diagnosis of afib on tele. Per cardiology evaluation appears more like PAC.
- Repeat CT head yesterday showed evolving stroke. No signs of hemorrhagic conversion
- Started on baby aspirin through [facility]. Discussed with son, will continue to evaluate need for feeding tube. Currently feeding is through [facility].
Periods of apnea overnight
Could have history of undiagnosed sleep apnea
Currently on CPAP
Pulmonary evaluation
Acute metabolic encephalopathy - Ongoing
-Patient remains with decreased responsiveness, waking up on physical touch at times
-No clear signs of seizures. Ceribell monitoring was negative for seizure
-Continue supportive care
-Lower extremity venous Doppler negative for clot
Status post left TKA
-Evaluated by orthopedic surgeon, no issues with surgical site
-Patient will require rehab for TKA/stroke
Essential hypertension - Uncontrolled
- Out of permissive hypertension window at this stage
- Switch to Toprol through tube
- As needed hydralazine for systolic blood pressure more than 160
Neuropathy
-Hold gabapentin for now, patient encephalopathic
Normocytic anemia
- Monitor for any postop/surgical blood loss anemia
DVT PPX - Lovenox
Full code
Patient remains at risk of further complication due to decreased wakefulness.
Patient son at bedside and care plan updated
General: No Apparent Distress and Comfortable
HEENT: Negative Oxygen
Respiratory: Clear to Auscultation
Cardiac: Regular Rhythm and S1/S2; Negative Murmur or Rub
Neuro: Awake; Negative Alert or Oriented
Psych: Calm
I spent a total of 52 minutes with the patient or on the floor. More than 50% of this time involved counseling and coordination of care.
Anticipated Discharge: > 48 hours
Subjective/Interval History
-
Date of Service: January 03, 2025
Overnight put on CPAP
Objective Data
-
Labs:
Laboratory Results
01/03/25 01/03/25
06:06 06:07
WBC 8.3
Hgb 11.1 L
Hct 31.9 L
Plt Count 166
Sodium 137
Potassium 4.1
Chloride 107
Carbon Dioxide 25
BUN 30 H
Creatinine 0.6 L
Glucose 154 H
Calcium 9.1
Vital Signs:
Vital Signs
Temp Pulse Resp BP Pulse Ox
97.7 F 78 16 136/75 96
01/03/25 11:30 01/03/25 11:30 01/03/25 11:30 01/03/25 11:30 01/03/25 11:30
I&O
01/02/25 01/03/25 01/04/25
05:59 06:59 06:59
Intake Total 960 / 960
Output Total 1050 / 1050 1450 / 1450
Balance -1050 / -1050 -490 / -490
[2025-01-03 12:46] LABS: Glucose - Point of Care 152 mg/dl (70-99)
--- NOTE | 2025-01-03 13:01 | W.PN.UPDATE ---
Update Note
Progress Note Update
Pt able to appropriately answer simple questions and shows signs of increase alertness compared with prior. Knee incision CDI. Getting tube feeds. Hopefully will continue to show daily improvement. I offered my support to his son and and
encouraged them to try to be as optimistic as possible for a recovery for Gopi.
--- NOTE | 2025-01-03 14:26 | W.PN.CARDCBS ---
Today's Communication / Plan
-
Delay transesophageal echo until clinical status has improved
2-week monitor, possible LINQ thereafter
Patient remains with embolic strokes of unknown source
Continue supportive care
Impression / Plan
-
PCP:Mario Haider
Primary commercial lines underwriter: Randy Quinones MD, CCP
Left total knee replacement 12/29/2024. Postoperatively he was initially alert and able to drink cup of coffee but then developed lethargy and became minimally responsive and stroke alert called.
Brain MRI 12/30/2024 showed numerous acute to subacute infarcts with the both cerebral hemispheres and bilaterally in the cerebellum.
CTA head and neck 12/30/2024 showed no large vessel occlusion. He was not a candidate for TNK/IAT due to major surgery day of stroke.
Cardiology consulted for possibility of atrial fibrillation and concern for thromboembolic events.
On telemetry there was some strips that are marked possible 'atrial fibrillation ' however visual inspection finds no clear atrial fibrillation on telemetry monitoring strips. Instead, there is artifact as well as PACs.
Impression:
CVA with numerous acute to subacute infarcts within bilateral cerebral hemispheres, thought to be cardioembolic
Hypertension
Hyperlipidemia
Right bundle branch block
Ascending aortic aneurysm
Coronary calcification on chest CT
Pharmacologic myocardial perfusion stress test 12/23/2024: Normal perfusion, EF 59%
Chest CT 09/19/2024: Ascending thoracic aorta 4.4 cm and similar to prior study, diffuse coronary artery calcifications
Peripheral venous ultrasound performed 12/31/2024 finds no evidence of deep venous thrombosis bilateral lower extremities.
Echo 12/30/2024: Nl sized LA and RA, EF 65 to 70%, normal RV size and function, mild , mild AI, dilated aortic root and ascending aorta, sinus of Valsalva 4.4 cm, sinotubular junction 4.4 cm, ascending aorta 4 cm
Plan:
He remains extremely debilitated with bihemispheric strokes that would most often be cardioembolic, though cardioembolic source is not readily apparent at present.
He remains stable from a cardiac standpoint, without evidence of atrial fibrillation.
Reviewed CT of aorta with radiology, no clear-cut pathology in ascending aorta that could account for bihemispheric stroke.
Short-term, transesophageal echo will not telephone exchange operator and so would prefer to delay until he is stronger. Similarly, bubble study not likely to telephone exchange operator, so we will hold off.
Continue telemetry. At discharge will need 2-week monitor, could also consider implantation of LINQ.
Progress Note - Solutions Architect
Subjective
Date of Service: January 03, 2025:
79-year-old man who underwent elective left total knee arthroplasty on December 29 who had change in mental status immediately postoperatively and then had evidence of bihemispheric and cerebellar strokes on MRI suggesting an embolic source.
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
Medications: Enoxaparin 40 mg subQ every afternoon, metoprolol tartrate 12.5 via tube twice daily, Pepcid, aspirin 81 mg a day
136/75, pulse 78, respiratory rate 16, afebrile, weight is 103.9 kg, multiple family members at bedside, patient can slowly articulate name, barely audible and slow, can move fingers of right hand minimally, does not appear to be distress, head neck
exam unremarkable, diminished breath sounds, regular rate and rhythm without murmurs, abdomen obese, extremities 1+ edema,
Ultrasound of leg veins negative
Chest x-ray: Atelectasis
CT of chest: COPD, no evidence of pulmonary embolus, severe coronary artery calcification.
Telemetry: Negative for A-fib
CTA of carotids relatively mild bilateral carotid plaque
Hemoglobin 11.1, white count 8.3, platelets are 166, BUN and creatinine are 30 and 0.6
Objective
Labs:
01/03/25 06:07
01/03/25 06:06
Labs
Hgb 11.1 g/dL (13.0-18.0) L 01/03/25 06:07
Hct 31.9 % (39.0-52.0) L 01/03/25 06:07
Plt Count 166 10^3/uL (130-400) 01/03/25 06:07
PT Cancelled 12/30/24 03:25
INR Cancelled 12/30/24 03:25
APTT Cancelled 12/30/24 03:25
Sodium 137 mmol/L (135-145) 01/03/25 06:06
Potassium 4.1 mmol/L (3.5-5.1) 01/03/25 06:06
BUN 30 mg/dl (9-20) H 01/03/25 06:06
Creatinine 0.6 mg/dL (0.7-1.3) L 01/03/25 06:06
Glucose 154 mg/dl (70-99) H 01/03/25 06:06
Vital Signs and I&O:
Vital Signs
Temp Pulse Resp BP Pulse Ox
36.5 C 78 16 136/75 96
01/03/25 11:30 01/03/25 11:30 01/03/25 11:30 01/03/25 11:30 01/03/25 11:30
Vital Signs
Temp Pulse Resp BP Pulse Ox
36.5 C 78 16 136/75 96
01/03/25 11:30 01/03/25 11:30 01/03/25 11:30 01/03/25 11:30 01/03/25 11:30
Intake & Output
01/01/25 01/02/25 01/03/25 01/04/25
07:59 06:59 07:59 07:59
Intake Total 750 / 750 960 / 960
Output Total 125 / 125 1050 / 1050 1450 / 1450
Balance 625 / 625 -1050 / -1050 -490 / -490
Physical Exam
Physical Exam
See above
[2025-01-03 17:06] LABS: Glucose - Point of Care 150 mg/dl (70-99)
--- NOTE | 2025-01-03 17:09 | CM ---
Patient seen at bedside on . Patient on tube feeding and CPAP at this time. CM will continue to follow for discharge planning needs.
Plan; SNF pending medical treatment plan.
[2025-01-03] MEDS: LOVENOX 40 MG SC (17:49)
[2025-01-03] MEDS: PEPCID 20 MG TUBE (21:45)
[2025-01-03 23:55] LABS: Glucose - Point of Care 149 mg/dl (70-99)
[2025-01-04 03:10] VITALS: BP 135/69
[2025-01-04 05:34] LABS: Glucose - Point of Care 138 mg/dl (70-99)
[2025-01-04 05:59] VITALS: BMI 32.3
[2025-01-04 07:40] VITALS: BP 133/73
[2025-01-04 07:40] LABS: Hematocrit 32.4 % (39.0-52.0); Hemoglobin 11.0 g/dL (13.0-18.0); Mean Corp Hgb Conc. 34.0 g/dL (33.0-37.0); Mean Corpuscular Volume 95.0 fL (80.0-94.0); Nucleated Red Blood Cells % 0 % (-); Platelet Count 201 10^3/uL (130-400); Red Cell Dist. Width 13.5 % (11.5-14.5)
[2025-01-04 08:07] LABS: Blood Urea Nitrogen 35 mg/dl (9-20); Calcium 9.3 mg/dl (8.4-10.2); Carbon Dioxide 25 mmol/L (22-30); Chloride 107 mmol/L (98-107); Estimated Creatinine Clearance 119 ml/min; Glucose 133 mg/dl (70-99); Potassium 4.2 mmol/L (3.5-5.1); Sodium 138 mmol/L (135-145); eGFR > 60.00
--- NOTE | 2025-01-04 08:33 | W.PN.UPDATE ---
Update Note
Progress Note Update
This is an 79-year-old male who is now 6 days status post a left TKA, performed under the direction of Dr. Nicholas on 12/29/2024. MRI of the brain showed numerous acute to subacute infarctions, likely cardioembolic in nature. He is rather
somnolent on exam, but able to acknowledge my presence. And asking about his left knee and if there is any pain, he shakes his head no. Left knee bandage is intact. No drainage. Calf is soft. PT/OT to tolerance with passive knee motion to
prevent contracture. Appreciate all specialties involvements and primary team. Orthopedic surgery to continue to follow along.
[2025-01-04] MEDS: LOPRESSOR TUBE ×2 (08:35→20:17)
[2025-01-04] MEDS: LOW STRENGTH ASPIRIN 81 MG TUBE (08:36)
[2025-01-04] MEDS: DESENEX/MITRAZOL/ZEASORB 1 APPLIC TOPICAL ×2 (08:36→20:12)
[2025-01-04 11:00] VITALS: BP 131/73
--- NOTE | 2025-01-04 12:11 | W.PN.HOSP.TC ---
Today's Communication/Plan
-
Monitor vital signs and see plan
Continue with aspirin
Continue with tube feeding
Continue with speech evaluation, remains NPO. If unable to pass then family to decide on PEG tube
Discussed with son
CPAP while sleeping
Assessment / Plan
Assessment / Plan
Brain MRI
There are numerous scattered foci of abnormal diffusion-weighted signal compatible with acute to subacute infarction within both cerebral hemispheres, with involvement of the frontal, parietal, and occipital lobes. Distribution appears to be in the
vascular territory of the middle cerebral arteries and posterior cerebral arteries bilaterally. A few small foci of acute to subacute infarct involving the cerebellar hemispheres, slightly greater on the left compared to the right.
No evidence for associated hemorrhage or mass effect.
CTA h&n
Bilateral cervical carotid calcified plaque formation, as described. Right ICA estimated luminal diameter reduction of 50%. No dissection or occlusion.
No hemodynamically significant stenosis involving the left common or internal carotid artery. No [place] of [place] region aneurysm or stenosis. No cerebral artery significant plaque, stenosis, thrombus, or occlusion.
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
- MRI brain showing numerous scattered abnormal diffusion weighted signal on bilateral hemisphere
- CTA head and neck did not show any critical stenosis
- Neurology following and help appreciated. Patient will be likely transition to DOAC's based on cardio/neurology opinion
- Cardiology evaluation requested for possible undiagnosed A-fib. Currently per cardiology there is no indication for anticoagulation as no A-fib is seen. They are considering possible Holter monitor followed by Linq if needed. GABINO is currently
on hold due to patient's status. Per cardiology evaluation appears more like PAC.
- Repeat CT head showed evolving stroke. No signs of hemorrhagic conversion
- Started on baby aspirin through [facility]. Discussed with son, will continue to evaluate need for PEG tube. Currently feeding is through [facility].
Continues to be n.p.o., speech following.
Periods of apnea
Could have history of undiagnosed sleep apnea
Currently on CPAP
Pulmonary following, will need sleep study outpatient. On discharge will need nocturnal O2
Acute metabolic encephalopathy - Ongoing
-Patient remains with decreased responsiveness, waking up on physical touch at times
-No clear signs of seizures. Ceribell monitoring was negative for seizure
-Continue supportive care
-Lower extremity venous Doppler negative for clot
Status post left TKA
-Evaluated by orthopedic surgeon, no issues with surgical site
-Patient will require rehab for TKA/stroke
Essential hypertension - Uncontrolled
- Out of permissive hypertension window at this stage
- Switch to Toprol through tube
- As needed hydralazine for systolic blood pressure more than 160
Neuropathy
-Hold gabapentin for now, patient encephalopathic
Normocytic anemia
- Monitor for any postop/surgical blood loss anemia
DVT PPX - Lovenox
Full code
Patient remains at risk of further complication due to decreased wakefulness.
Patient son at bedside and care plan updated
General: No Apparent Distress and Comfortable
HEENT: Negative Oxygen
Respiratory: Clear to Auscultation
Cardiac: Regular Rhythm and S1/S2; Negative Murmur or Rub
Neuro: Awake; Negative Alert or Oriented
Psych: Calm
I spent a total of 51 minutes with the patient or on the floor. More than 50% of this time involved counseling and coordination of care.
Anticipated Discharge: > 48 hours
Subjective/Interval History
-
Date of Service: January 04, 2025
on cpap
Objective Data
-
Labs:
Laboratory Results
01/04/25
06:46
WBC 9.2
Hgb 11.0 L
Hct 32.4 L
Plt Count 201 D
Sodium 138
Potassium 4.2
Chloride 107
Carbon Dioxide 25
BUN 35 H
Creatinine 0.6 L
Glucose 133 H
Calcium 9.3
Vital Signs:
Vital Signs
Temp Pulse Resp BP Pulse Ox
98.4 F 81 16 133/73 93
01/04/25 07:40 01/04/25 07:40 01/04/25 07:40 01/04/25 07:40 01/04/25 09:00
I&O
01/03/25 01/04/25 01/05/25
06:59 06:59 06:59
Intake Total 960 / 960 960 / 960
Output Total 1450 / 1450 1700 / 1700
Balance -490 / -490 -740 / -740
--- NOTE | 2025-01-04 12:32 | W.PN.CARDCBS ---
Today's Communication / Plan
-
Unchanged from cardiac standpoint
No cardiac medication changes warranted at present.
Continue telemetry while hospitalized.
Please call us at discharge so we can arrange for 2-week ambulatory monitor
We will sign off, please call if questions.
Impression / Plan
-
PCP:Mario Haider
Primary flag car driver: Randy Quinones MD, CCP
Left total knee replacement 12/29/2024. Postoperatively he was initially alert and able to drink cup of coffee but then developed lethargy and became minimally responsive and stroke alert called.
Brain MRI 12/30/2024 showed numerous acute to subacute infarcts with the both cerebral hemispheres and bilaterally in the cerebellum.
CTA head and neck 12/30/2024 showed no large vessel occlusion. He was not a candidate for TNK/IAT due to major surgery day of stroke.
Cardiology consulted for possibility of atrial fibrillation and concern for thromboembolic events.
On telemetry there was some strips that are marked possible 'atrial fibrillation ' however visual inspection finds no clear atrial fibrillation on telemetry monitoring strips. Instead, there is artifact as well as PACs.
Impression:
CVA with numerous acute to subacute infarcts within bilateral cerebral hemispheres, thought to be cardioembolic
Hypertension
Hyperlipidemia
Right bundle branch block
Ascending aortic aneurysm
Coronary calcification on chest CT
Pharmacologic myocardial perfusion stress test 12/23/2024: Normal perfusion, EF 59%
Chest CT 09/19/2024: Ascending thoracic aorta 4.4 cm and similar to prior study, diffuse coronary artery calcifications
Peripheral venous ultrasound performed 12/31/2024 finds no evidence of deep venous thrombosis bilateral lower extremities.
Echo 12/30/2024: Nl sized LA and RA, EF 65 to 70%, normal RV size and function, mild , mild AI, dilated aortic root and ascending aorta, sinus of Valsalva 4.4 cm, sinotubular junction 4.4 cm, ascending aorta 4 cm
Plan:
Cardiac status is unchanged.
He remains severely neurologically impaired.
At this point there is little to offer from a cardiac standpoint other than continued monitoring on telemetry. I would not proceed with transesophageal at this time.
At discharge, ambulatory telemetry should be placed, please call us when transfer to rehab is to be performed.
No change in cardiac meds at present, metoprolol and aspirin.
We will sign off, please call if questions.
Progress Note - Administration Assistant
Subjective
Date of Service: January 04, 2025
Patient largely unchanged
Objective
Labs:
01/04/25 06:46
01/04/25 06:46
Labs
Hgb 11.0 g/dL (13.0-18.0) L 01/04/25 06:46
Hct 32.4 % (39.0-52.0) L 01/04/25 06:46
Plt Count 201 10^3/uL (130-400) D 01/04/25 06:46
PT Cancelled 12/30/24 03:25
INR Cancelled 12/30/24 03:25
APTT Cancelled 12/30/24 03:25
Sodium 138 mmol/L (135-145) 01/04/25 06:46
Potassium 4.2 mmol/L (3.5-5.1) 01/04/25 06:46
BUN 35 mg/dl (9-20) H 01/04/25 06:46
Creatinine 0.6 mg/dL (0.7-1.3) L 01/04/25 06:46
Glucose 133 mg/dl (70-99) H 01/04/25 06:46
Vital Signs and I&O:
Vital Signs
Temp Pulse Resp BP Pulse Ox
36.9 C 81 16 133/73 93
01/04/25 07:40 01/04/25 07:40 01/04/25 07:40 01/04/25 07:40 01/04/25 09:00
Vital Signs
Temp Pulse Resp BP Pulse Ox
36.9 C 81 16 133/73 93
01/04/25 07:40 01/04/25 07:40 01/04/25 07:40 01/04/25 07:40 01/04/25 09:00
Intake & Output
01/02/25 01/03/25 01/04/25 01/05/25
06:59 07:59 07:59 07:59
Intake Total 960 / 960 960 / 960
Output Total 1050 / 1050 1450 / 1450 1700 / 1700
Balance -1050 / -1050 -490 / -490 -740 / -740
Physical Exam
Physical Exam
Diminished breath sounds in bases, regular rate and rhythm, abdomen benign, extremities 2+ edema, can with difficulty enunciate his last name
--- NOTE | 2025-01-04 14:11 | PTOTSP ---
ST Re-Evaluation/Follow-Up
Pt currently presents with clinical signs of suspected pharyngeal dysphagia as evident by coughing s/p ingestion of both thin and thick consistencies, suspicious for airway in the setting of aphonia and suspected inadequate vocal fold adduction. Pt
also currently presents with clinical signs of severe dysphonia (i.e., aphonia), mild expressive language impairment, moderate receptive language impairment, and likely moderately-severe cognitive communication impairment.
Recommendations:
- Continue NPO with alternative means of nutrition/hydration/meds via dobhoff tube.
- ARHP - ice chips q1 hour with supervision only after oral care and only when pt is fully awake, alert, and upright.
- Consider ENT consultation given persistent aphonia.
- TAPING FOREMAN to f/u re: re-evaluation of swallow function and to determine readiness for objective swallow study (VFSS or FEES).
- TAPING FOREMAN to f/u re: continued cognitive communication evaluation/tx.
- Pt would benefit from continued TAPING FOREMAN services at next level of care at the acute rehab level of care.
Please note: Spoke with son outside of room at end of session re: pt's personality in terms of whether or not pt's personality may be interfering with assessment outcomes (i.e., providing silly responses intentionally). Pt's son said that this could
be a possibility. Pt's son also reported that pt has the personality that if he feels as though he is being wronged or poorly treated, he will shut down and not participate or not respond to people. TAPING FOREMAN communicated to son that this information
would be shared to the rest of the tx team as a means to ensure all are being mindful when of this information when they are providing care.
--- NOTE | 2025-01-04 14:53 | W.PN.PUL3 ---
Today's Communication / Plan
-
Continue nocturnal CPAP while in the hospital
His going home may opt to provide nocturnal oxygen-and may need nocturnal pulse oximetry with CPAP.
Aspiration precautions
Signed off
Assessment
-
This is an 79 y/o male with pmhx of end-stage knee osteoarthritis, hyperlipidemia, hypertension who underwent an uncomplicated left total knee arthoplasty on 12/29/2024 and gradually developed altered mental status throughout the day following his
procedure with new acute hypoxic respiratory insufficiency postoperatively,-- found to have brain infarction on MR-
Pulmonary reconsulted 01/03/2025 for nocturnal hypoxemia and apnea events.
Nocturnal hypoxemia: Suspect obstructive sleep apnea.
ABG without evidence of chronic hypercapnia.
Initial acute hypoxemic respiratory failure likely due to hypoventilation-Resolved
-
Cardioembolic acute CVA during this hospital stay
Echocardiogram: Normal LVEF. No significant valvular abnormalities.
Status post left total knee replacement 12/29/2024.
Atrial fibrillation.
Conditions present prior admission:
Hypertension
Hyperlipidemia
AAA
History of liposarcoma
Osteoarthritis
Nephrolithiasis
Assessment and plan:
-
Patient likely has obstructive sleep apnea-possibly some degree of [place] respirations due to recent stroke.
ABG without evidence of chronic hypercapnia. No evidence for chronic metabolic acidosis either. Does not qualify for BiPAP or noninvasive mechanical ventilation. There is no evidence for chronic hypercapnic respiratory failure.
-
Ideally sleep study will be necessary-unclear whether this patient will be able to sit for it.
Patient is alert but will not follow commands. Does not have a break of effort.
He is at risk for aspiration as well.
-
While in the hospital on CPAP at bed time can continue ---will need close observation.
Will limit as much as possible-unfortunately, with his mental status he is unable to pull the mask off if there was a emesis event.
Would only use it at night for now.
Can use at night and with naps.
Head of the bed elevation
If he goes to rehab can continue CPAP therapy
After that can be discharged on nocturnal oxygen therapy until he can perform a sleep study if mental status improves.
-
Closer to discharge can perform nocturnal oxygen oximetry and start nocturnal oxygen if pt going home.
-
Avoid sedatives
Encourage incentive spirometry
-
Nothing by mouth
Doppler tube in place
The patient unable to swallow family to decide on PEG tube
-
Outpatient pulmonary follow-up eventually. Information will be left in the chart.
-
No additional recommendations from the pulmonary perspective
Sign off
Subjective Data
-
Date of Service:
Date of Service: January 04, 2025
Chief Complaint: Pulmonary Follow Up (Nocturnal hypoxemia)
Subjective:
Patient unable to provide detailed history.
Tolerating nocturnal CPAP
Review of Systems
General: Other (Still somnolent-unable to obtain)
Objective Data
Data Reviewed
Vital Signs / I&O / Oxygen:
Vital Signs
Temp Pulse Resp BP Pulse Ox
98 F 90 16 131/73 98
01/04/25 11:00 01/04/25 11:00 01/04/25 11:00 01/04/25 11:00 01/04/25 11:00
Intake and Output
01/03/25 01/04/25 01/05/25
06:59 06:59 06:59
Intake Total 960 / 960 960 / 960
Output Total 1450 / 1450 1700 / 1700
Balance -490 / -490 -740 / -740
SaO2 98
Nasal Cannula flow liters per 2
minute
Physical Exam
General: Comfortable
HEENT: Normocephalic
Cardiovascular: S1-S2 and Regular Rhythm
Respiratory: Clear and Non-Labored Respirations
GI: Soft and Non Distended
Neurology: Awake, Alert and No Motor Deficits
Labs/Micro/Reports
Lab Data
01/04/25 06:46
01/04/25 06:46
Microbiology
12/30/24 10:23 Blood/Venous Blood Culture - Final
No Growth - Final Report
12/30/24 10:23 Blood/Venous Blood Culture - Final
No Growth - Final Report
--- NOTE | 2025-01-04 15:26 | CM ---
CM reviewed medical records. Patient is pending PEG decision. CM will continue to follow for medical readiness for discharge.
PLAN: SNF
[2025-01-04] MEDS: TYLENOL ORAL SOLUTION 650 MG TUBE (16:01)
[2025-01-04] MEDS: LOVENOX 40 MG SC (16:02)
[2025-01-04 19:00] VITALS: BP 135/86
[2025-01-04] MEDS: PEPCID 20 MG TUBE (22:00)
[2025-01-04 23:15] VITALS: BP 140/83
[2025-01-05] VITALS (8 sets, daily range): BP systolic 115–161; BP diastolic 58–86; PULSE 82; O2SAT 96; BMI 32.1
[2025-01-05 00:01] LABS: Glucose - Point of Care 147 mg/dl (70-99)
[2025-01-05 06:09] LABS: Glucose - Point of Care 146 mg/dl (70-99)
[2025-01-05 07:52] LABS: Hematocrit 34.1 % (39.0-52.0); Hemoglobin 11.5 g/dL (13.0-18.0); Mean Corp Hgb Conc. 33.7 g/dL (33.0-37.0); Mean Corpuscular Volume 94.7 fL (80.0-94.0); Nucleated Red Blood Cells % 0 % (-); Platelet Count 263 10^3/uL (130-400); Red Cell Dist. Width 13.4 % (11.5-14.5)
--- NOTE | 2025-01-05 08:10 | W.PN.UPDATE ---
Update Note
Progress Note Update
patient seen in tandem with Dr. Nicholas.
1 week s/p left TKA with embolic stroke suffered post operatively.
Breathing mask in place. In asking questions, he attempts to answer, but it is difficult to hear what he is trying to say.
Son in room. Had discussion in regards to rehab and activities going forward. He was able to swallow applesauce yesterday.
Consider Shasha lift to get patient out of bed into bedside chair if appropriate.
PT for passive ROM left knee to prevent stiffness.
Will continue to follow while inpatient.
[2025-01-05 08:24] LABS: Blood Urea Nitrogen 46 mg/dl (9-20); Calcium 9.3 mg/dl (8.4-10.2); Carbon Dioxide 25 mmol/L (22-30); Chloride 108 mmol/L (98-107); Estimated Creatinine Clearance 102 ml/min; Glucose 176 mg/dl (70-99); Potassium 4.4 mmol/L (3.5-5.1); Sodium 142 mmol/L (135-145); eGFR > 60.00
[2025-01-05] MEDS: DESENEX/MITRAZOL/ZEASORB 1 APPLIC TOPICAL ×2 (08:26→20:25)
[2025-01-05] MEDS: LOPRESSOR TUBE ×2 (08:26→20:25)
[2025-01-05] MEDS: LOW STRENGTH ASPIRIN 81 MG TUBE (08:26)
--- NOTE | 2025-01-05 08:54 | W.PN.UPDATE ---
Update Note
Progress Note Update
Patient seen and evaluated at the bedside.
Full consult to follow.
A/P-[age]-year-old male with aphasia and dysphagia.
- Fiberoptic flexible laryngoscopy performed at the bedside.
- No evidence of any anatomical issues.
- Difficulty swallowing and speaking is likely due to CVA and generalized weakness.
- Recommend supportive care.
- Continue tube feeds until patient is cleared to swallow.
- Continue speech therapy as tolerated by patient.
--- NOTE | 2025-01-05 10:00 | WOUNDNOTE ---
[facility] RN note: Patient seen for a stage 2 gluteal cleft pressure injury on the HAPI report and during prevention rounds. Patient s/p L TKR on 12/29/24 and recent CVA. Patient has an NG tube feeding. He is immobile and is on a Centrella Pro mattress.
Multipodus splints in place. Skin on heels intact. Posterior thighs with linear mild red novak from [employer] use. Protective silicone border foam applied. Sacrum with a linear stage 2 pressure injury. Sacral shaped silicone border foam maintained.
Patient turned with DALILA Contreras then with manager legal Clarisse and ED educator Eddie. Patient's penis with small dermal skin tear. Discussed with DALILA Contreras who plans to remove his condom catheter. t/c SPD and ordered a bariatric air chair cushion. Discussed
with LUIS Clemente. Care plan and discharge instructions to be updated. Updated son James re: patient's sacral pressure injury and prevention measures in place.
--- NOTE | 2025-01-05 13:37 | W.PN.HOSP.TC ---
Today's Communication/Plan
-
Monitor vitals
See plan
Speech to evaluate today
Continue with tube feeds
Monitor mental status closely
Discussed with family
CPAP nightly
Assessment / Plan
Assessment / Plan
Brain MRI
There are numerous scattered foci of abnormal diffusion-weighted signal compatible with acute to subacute infarction within both cerebral hemispheres, with involvement of the frontal, parietal, and occipital lobes. Distribution appears to be in the
vascular territory of the middle cerebral arteries and posterior cerebral arteries bilaterally. A few small foci of acute to subacute infarct involving the cerebellar hemispheres, slightly greater on the left compared to the right.
No evidence for associated hemorrhage or mass effect.
CTA h&n
Bilateral cervical carotid calcified plaque formation, as described. Right ICA estimated luminal diameter reduction of 50%. No dissection or occlusion.
No hemodynamically significant stenosis involving the left common or internal carotid artery. No [place] of [place] region aneurysm or stenosis. No cerebral artery significant plaque, stenosis, thrombus, or occlusion.
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
- MRI brain showing numerous scattered abnormal diffusion weighted signal on bilateral hemisphere
- CTA head and neck did not show any critical stenosis
- Neurology following and help appreciated. Patient will be likely transition to DOAC's based on cardio/neurology opinion
- Cardiology evaluation requested for possible undiagnosed A-fib. Currently per cardiology there is no indication for anticoagulation as no A-fib is seen. They are considering possible Holter monitor followed by Linq if needed. GABINO is currently
on hold due to patient's status. Per cardiology evaluation appears more like PAC. Notified cardiology for Holter monitor prior to discharge.
- Repeat CT head showed evolving stroke. No signs of hemorrhagic conversion
- Started on baby aspirin through [employer]. Discussed with son, will continue to evaluate need for PEG tube. Currently feeding is through [employer]. Prior to decision of PEG tube, family requested to speak to neurology again if patient mental
status do not improve before they make their decision.
Continues to be n.p.o., speech following. Speech request ENT follow-up. Per ENT no anatomical issue.
Periods of apnea
Could have history of undiagnosed sleep apnea
Currently on CPAP
Pulmonary following, will need sleep study outpatient. On discharge will need nocturnal O2
Acute metabolic encephalopathy - Ongoing
-Patient remains with decreased responsiveness, waking up on physical touch at times
-No clear signs of seizures. Ceribell monitoring was negative for seizure
-Continue supportive care
-Lower extremity venous Doppler negative for clot
Status post left TKA
-Evaluated by orthopedic surgeon, no issues with surgical site
-Patient will require rehab for TKA/stroke
Essential hypertension - Uncontrolled
- Out of permissive hypertension window at this stage
- Switch to Toprol through tube
- As needed hydralazine for systolic blood pressure more than 160
Neuropathy
-Hold gabapentin for now, patient encephalopathic
Normocytic anemia
- Monitor for any postop/surgical blood loss anemia
DVT PPX - Lovenox
Full code
Patient remains at risk of further complication due to decreased wakefulness.
Patient son at bedside and care plan updated
General: No Apparent Distress and Comfortable
HEENT: Negative Oxygen
Respiratory: Clear to Auscultation
Cardiac: Regular Rhythm and S1/S2; Negative Murmur or Rub
Neuro: Awake; Negative Alert or Oriented
Psych: Calm
I spent a total of 51 minutes with the patient or on the floor. More than 50% of this time involved counseling and coordination of care.
Anticipated Discharge: > 48 hours
Subjective/Interval History
-
Date of Service: January 05, 2025
Lethargic
Objective Data
-
Labs:
Laboratory Results
01/05/25
07:16
WBC 9.9
Hgb 11.5 L
Hct 34.1 L
Plt Count 263 D
Sodium 142
Potassium 4.4
Chloride 108 H
Carbon Dioxide 25
BUN 46 H
Creatinine 0.7
Glucose 176 H
Calcium 9.3
Vital Signs:
Vital Signs
Temp Pulse Resp BP Pulse Ox
98.9 F 86 16 161/84 96
01/05/25 11:23 01/05/25 11:23 01/05/25 11:23 01/05/25 11:23 01/05/25 11:23
I&O
01/04/25 01/05/25 01/06/25
06:59 06:59 06:59
Intake Total 960 / 960 905 / 905
Output Total 1700 / 1700 1150 / 1150
Balance -740 / -740 -245 / -245
--- NOTE | 2025-01-05 14:06 | W.CON.OTO ---
Otolaryngology Consult
Chief Complaint
Aphasia and dysphagia
History of Present Illness
Patient is an 79-year-old male who came in for knee replacement on December 29. Patient was lethargic and had altered mental status postoperatively. Subsequently he was found to have a CVA. He was admitted to the hospital for postoperative care.
Over the last several days the patient remains weak and unresponsive. His voice has been noted to be very weak. In addition he is having difficulty swallowing. A feeding tube was placed for nutrition. Swallowing evaluation at the bedside found
the patient to be at risk for aspiration. Currently he is NPO. Speech therapy is also been difficult as the patient has significant dysphonia. I was asked to evaluate the patient for any underlying ENT abnormalities that may be contributing to
his symptoms.
Most of the information was obtained from the patient's son. He has no prior history of any hoarseness or aphasia. He has no previous history of any swallowing difficulties. All these problems have developed due to the CVA. The patient has no
previous history of any neck surgery. According to the son, his father's voice comes and goes but has been weak and unintelligible more than not. There is no reported significant coughing or phlegm. There is no reported pain.
Medical History
Additional Past Medical History:
Hypertension
Hyperlipidemia
Ascending aortic aneurysm (CT chest 09/19/2024 ascending thoracic aorta 4.4 cm)
Right bundle branch block
Coronary artery calcification on chest CT 08/2024
Osteoarthritis
Additional Past Surgical History:
Left total knee replacement 12/29/2024, left lower extremity liposarcoma removal, cystoscopy with renal stone extraction, bilateral hernia repair
Patient Allergies:
Allergies
Allergy/AdvReac Type Severity Reaction Status Date / Time
No Known Allergies Allergy Verified 12/29/24 07:37
Home Medications / Current Medications:
�Medication �Instructions �Recorded
metoprolol succinate 25 mg 25 mg PO DAILY Heart 12/10/24
tablet,extended release 24 hr Disease/Condition
multivitamin 1 tab PO DAILY Supplement 12/10/24
simvastatin 20 mg tablet 20 mg PO QPM High Cholesterol 12/10/24
vitamin B complex 1 tab PO DAILY Supplement 12/10/24
celecoxib 200 mg capsule (Celebrex) 200 mg PO DAILY #14 caps 12/20/24
dexamethasone 4 mg tablet 4 mg PO BID Anti-inflammatory #7 12/20/24
tabs
famotidine 20 mg tablet (Pepcid) 20 mg PO HS #30 tabs 12/20/24
gabapentin 300 mg capsule 300 mg PO HS neuropathic 12/20/24
pain/sleep #10 caps
mupirocin 2 % topical ointment 1 applic intranasal BID #1 tube 12/20/24
ondansetron HCl 4 mg tablet 4 mg PO Q6H PRN nausea and 12/20/24
vomiting #30 tabs
oxycodone 5 mg tablet 5 - 10 mg (1 - 2 x 5 mg) PO Q6H 12/20/24
PRN moderate-severe pain #30 tabs
acetaminophen 500 mg tablet 1,000 mg (2 x 500 mg) PO Q6H #60 12/29/24
(Acetaminophen Extra Strength) tabs
aspirin 325 mg tablet 325 mg PO DAILY #30 tabs 12/29/24
docusate sodium 100 mg capsule 100 mg PO BID #30 caps 12/29/24
(Colace)
magnesium hydroxide 400 mg/5 mL 30 ml PO HS PRN constipation 12/29/24
oral suspension (Milk of Magnesia) #3,780 mL
sennosides 8.6 mg tablet (senna) 17.2 mg (2 x 8.6 mg) PO BID #30 12/29/24
tabs
Physical Exam
Vitals / Labs:
Vital Signs
Temp 98.9 F 01/05/25 11:23
Temp route: Axillary 01/05/25 11:23
Pulse 86 01/05/25 11:23
Rhythm: Normal sinus rhythm 01/04/25 20:00
With- Bundle Branch Block Confi, First Degree Heart Block, PVC's Monomorphic 01/04/25 20:00
Resp Rate 16 01/05/25 11:23
Blood pressure 161/84 01/05/25 11:23
Blood pressure extremity used: Right upper arm 01/05/25 11:23
Position: Lying 01/05/25 11:23
MAP (cuff-Garrett Monitor) 106 12/31/24 16:00
SaO2 96 01/05/25 11:23
Nasal Cannula flow liters per minute 2 01/05/25 12:26
Oxygen Mode of Delivery Room air 01/05/25 11:23
Oxygen Mode of Delivery: Room air 12/29/24 10:14
Flow liters per minute # 0.5 01/01/25 04:05
Pulse Ox at Rest 96 01/05/25 12:26
Can the patient verbally communicate their pain? No 01/04/25 20:00
Pain scale ratin 01/04/25 16:01
Actual Weight 104.326 kg 01/05/25 05:43
Body Mass Index (BMI) 32.1 01/05/25 05:43
Supine- Blood Pressure 125/71 01/05/25 12:26
Supine- Pulse 82 01/05/25 12:26
Heart rate after activity 85 01/05/25 12:09
Oxygen Saturation with Activity 92 01/05/25 12:09
Lab Results
01/05/25 07:16
01/05/25 07:16
PT Cancelled 12/30/24 03:25
INR Cancelled 12/30/24 03:25
Exam:
Patient resting comfortably in bed, in no acute distress, responds to verbal and physical stimuli, unintelligible speech.
Head normocephalic and atraumatic.
Ears normal bilaterally.
Nasal cavity with Dobbhoff feeding tube on right side, left side clear.
Oral cavity with dry oral mucosal membranes, no mass or neoplasm visualized, tongue within normal limits, appears to have normal tongue movement and palate movement.
Neck soft and supple, no mass or neoplasm palpable.
Flexible fiberoptic laryngoscopy performed at the bedside.
Easily passed to the left side of the nose.
Nasopharynx clear.
Oropharynx unremarkable.
Pharynx with Dobbhoff feeding tube visualized, entering piriform sinus on right side. Base of tongue, vallecula, epiglottis, aryepiglottic folds, arytenoids, piriform sinuses, and postcricoid area were all normal.
True and false vocal folds unremarkable.
With phonatory effort vocal folds appear to move bilaterally to the midline, however movement is weak.
No masses or neoplasms noted within the upper aerodigestive tract. Mild thick mucus present posteriorly
Assessment / Plan
Gopi Viera is an 79-year-old male with a recent history of an embolic stroke following knee surgery. Unfortunately he has developed aphasia and dysphagia. this is likely neurogenic in nature. Hopefully as he recovers from his stroke his
speech and swallowing will improve. Would recommend supportive measures for now. Continue Dobbhoff tube feeds.May need to consider PEG feeding tube. Patient should continue to work with speech and swallowing therapy. They can advance him as
appropriate. Patient can follow-up in the office as an outpatient if necessary to reassess. This was all discussed at the bedside with the patient's son.
--- NOTE | 2025-01-05 14:24 | PTOTSP ---
ST Re-Evaluation/Follow-Up
Pt continues to present presents with clinical signs of suspected pharyngeal dysphagia as evident by coughing s/p ingestion of both thin consistencies, suspicious for airway in the setting of aphonia and suspected inadequate vocal fold adduction. Pt
also currently presents with clinical signs of severe dysphonia (i.e., aphonia), mild expressive language impairment, moderate receptive language impairment, and likely at least a moderate cognitive communication impairment.
Recommendations:
- Initiate a PO diet of pureed solids with mildly thick liquids via TSP ONLY with meds crushed in puree as able (otherwise whole in puree).
- ARHP - 1/2 small cup of ice chips q1 hour with supervision only after oral care and only when pt is fully awake, alert, and upright (outside of meal times).
- FEES for more objective information regarding current swallowing function and to determine safest, least restrictive PO diet prior to discharge to next level of care.
- [employer] DEVELOPER to f/u re: completion of FEES and subsequent recommendations.
- [employer] NET DEVELOPER to f/u re: continued cognitive communication evaluation/tx.
- Pt would benefit from continued SHARE[employer] NET DEVELOPER services at next level of care at the acute rehab level of care.
--- NOTE | 2025-01-05 14:29 | WOUNDNOTE ---
WOC RN note: Jorge Mcintosh re: recommend an air mattress for patient at SNF. He has a stage 2 sacral pressure injury.
--- NOTE | 2025-01-05 14:31 | CM ---
Cm udpated by Denise Arias that patient will need an air mattress on discharge.
[2025-01-05] MEDS: LIDOCAINE 4% PATCH 1 PATCH TOPICAL (15:40)
[2025-01-05] MEDS: COLACE LIQUID 100 MG TUBE ×2 (15:41→20:25)
[2025-01-05 18:00] LABS: Glucose - Point of Care 143 mg/dl (70-99)
[2025-01-05] MEDS: LOVENOX 40 MG SC (18:01)
[2025-01-05] MEDS: REMOVE LIDOCAINE PATCH 1 PATCH REMOVE (20:25)
[2025-01-05] MEDS: PEPCID 20 MG TUBE (22:30)
[2025-01-06] VITALS (9 sets, daily range): BP systolic 119–148; BP diastolic 60–77; PULSE 77–92; O2SAT 92; BMI 30.5
[2025-01-06 01:11] LABS: Glucose - Point of Care 118 mg/dl (70-99)
[2025-01-06 04:50] LABS: Glucose - Point of Care 126 mg/dl (70-99)
[2025-01-06 06:44] LABS: Hematocrit 33.8 % (39.0-52.0); Hemoglobin 11.3 g/dL (13.0-18.0); Mean Corp Hgb Conc. 33.4 g/dL (33.0-37.0); Mean Corpuscular Volume 94.2 fL (80.0-94.0); Nucleated Red Blood Cells % 0 % (-); Platelet Count 256 10^3/uL (130-400); Red Cell Dist. Width 13.6 % (11.5-14.5)
--- NOTE | 2025-01-06 06:53 | W.PN.ORTHO ---
Today's Communication / Plan
-
PT/OT
Weightbearing as tolerated with walker
Ice with elevation to control swelling and pain
Lovenox for DVT prophylaxis
Aquacel dressing to stay in place until Friday then remove
Likely rehab stay once medically stable
Greatly appreciate medical team's efforts with patient
Assessment
.
Dressing:
Clean, dry and intact.
Plan
.
Surgery / Date: 12/29 THV S/P CVA
DVT Prophylaxis: Lovenox
Activity:
Out of bed.
PT/OT
Discharge Plan: SNF
Subjective
.
.:
Patient resting comfortably this morning. He relates that his pain is minimal about his left knee. He states that he was up to the chair yesterday.
Vital Signs and Labs
.
Vital Signs and Labs:
Lab Results
01/06/25 06:18
Temp Pulse Resp BP Pulse Ox
97.5 F 70 17 128/66 93
01/06/25 03:33 01/06/25 03:33 01/06/25 03:33 01/06/25 03:33 01/06/25 03:33
PT Cancelled 12/30/24 03:25
INR Cancelled 12/30/24 03:25
Physical Exam
-
Thigh-high Vasquez stocking in place left lower extremity. Aquacel dressing appears clean, dry and intact. Edema noted in the lower extremity. Range of motion 0-90 degrees without pain or instability. Calf is soft and nontender.
[2025-01-06 07:16] LABS: Blood Urea Nitrogen 44 mg/dl (9-20); Calcium 9.3 mg/dl (8.4-10.2); Carbon Dioxide 25 mmol/L (22-30); Chloride 109 mmol/L (98-107); Estimated Creatinine Clearance 102 ml/min; Glucose 116 mg/dl (70-99); Potassium 4.3 mmol/L (3.5-5.1); Sodium 140 mmol/L (135-145); eGFR > 60.00
[2025-01-06] MEDS: DESENEX/MITRAZOL/ZEASORB 1 APPLIC TOPICAL ×2 (07:33→20:20)
[2025-01-06] MEDS: LIDOCAINE 4% PATCH 1 PATCH TOPICAL (07:33)
[2025-01-06] MEDS: LOW STRENGTH ASPIRIN 81 MG TUBE (07:33)
[2025-01-06] MEDS: COLACE LIQUID 100 MG TUBE ×2 (07:33→20:20)
[2025-01-06] MEDS: LOPRESSOR TUBE ×2 (10:19→20:21)
--- NOTE | 2025-01-06 11:16 | WOUNDNOTE ---
WO RN note: Patient's R posterior thigh linear red carrie almost resolved and is blanchable red. L posterior thigh linear red carrie mostly blanchable except a small area laterally. L dorsal foot blanchable red. Silicone border foam changed on R
posterior high. Silicone border foam applied to L dorsal foot. Thigh high Teds removed for skin break after discussion with DALILA Contreras. Diane ordered XL Teds (had Large size). Sacral shaped silicone border foam changed on sacrum. Miconazole powder
applied to perianal skin. Patient turned to L semi side lying position with help from DALILA Contreras. Heels off bed with pillow. Bariatric air chair cushion in room. [place]ield texted Gaston Christensen, Nia PA Re: red areas from TEDs asking if TEDs are still
necessary and if so, if nursing care remove thigh high Teds 3-4hrs 2 times a day (q shift). Await response.
--- NOTE | 2025-01-06 11:50 | WOUNDNOTE ---
WOC RN note: Gaston Christensen approved removing thigh high TEDs 3-4 hrs bid (q shift). Nursing care plan updated.
--- NOTE | 2025-01-06 12:09 | CM ---
CM spoke with patient's son at length regarding discharge planning. Patient's son was explained the differing level of rehabilitation. CM spoke with bedside RN for update.
CM requesting PM and R consult to comment on rehab potential. LINDY further sent referral to [facility] and adelaida Perla at [facility] with new referral.
CM will await further feedback.
PLAN: Pending PMR and [facility] to comment on acceptance.
--- NOTE | 2025-01-06 12:39 | W.PN.HOSP.TC ---
Today's Communication/Plan
-
Monitor vital signs and see plan
Speech evaluation
Continues to improve with p.o. then will discontinue Dobbhoff
PT/OT
Assessment / Plan
Assessment / Plan
Brain MRI
There are numerous scattered foci of abnormal diffusion-weighted signal compatible with acute to subacute infarction within both cerebral hemispheres, with involvement of the frontal, parietal, and occipital lobes. Distribution appears to be in the
vascular territory of the middle cerebral arteries and posterior cerebral arteries bilaterally. A few small foci of acute to subacute infarct involving the cerebellar hemispheres, slightly greater on the left compared to the right.
No evidence for associated hemorrhage or mass effect.
CTA h&n
Bilateral cervical carotid calcified plaque formation, as described. Right ICA estimated luminal diameter reduction of 50%. No dissection or occlusion.
No hemodynamically significant stenosis involving the left common or internal carotid artery. No [place] of [place] region aneurysm or stenosis. No cerebral artery significant plaque, stenosis, thrombus, or occlusion.
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
- MRI brain showing numerous scattered abnormal diffusion weighted signal on bilateral hemisphere
- CTA head and neck did not show any critical stenosis
- Neurology following and help appreciated. Patient will be likely transition to DOAC's based on cardio/neurology opinion
- Cardiology evaluation requested for possible undiagnosed A-fib. Currently per cardiology there is no indication for anticoagulation as no A-fib is seen. They are considering possible Holter monitor followed by [facility] if needed. G[facility]INO is currently
on hold due to patient's status. Per cardiology evaluation appears more like PAC. Notified cardiology for Holter monitor prior to discharge.
- Repeat CT head showed evolving stroke. No signs of hemorrhagic conversion
- Started on baby aspirin through Dobbhoff. Discussed with son, will continue to evaluate need for PEG tube. Improving slowly with speech therapy. Fees today. Started on pur�ed diet with mildly thick liquids per speech recommendation. If
continues to tolerate p.o. intake then will discontinue Dobbhoff. family requested to speak to neurology again if patient mental status do not improve before they make their decision.
speech following. Speech request ENT follow-up. Per ENT no anatomical issue.
Periods of apnea
Could have history of undiagnosed sleep apnea
Currently on CPAP
Pulmonary following, will need sleep study outpatient. On discharge will need nocturnal O2
Acute metabolic encephalopathy - Ongoing
-Patient remains with decreased responsiveness, waking up on physical touch at times
-No clear signs of seizures. Ceribell monitoring was negative for seizure
-Continue supportive care
-Lower extremity venous Doppler negative for clot
Status post left TKA
-Evaluated by orthopedic surgeon, no issues with surgical site
-Patient will require rehab for TKA/stroke
Essential hypertension - Uncontrolled
- Out of permissive hypertension window at this stage
- Switch to Toprol through tube
- As needed hydralazine for systolic blood pressure more than 160
Neuropathy
-Hold gabapentin for now, patient encephalopathic
Normocytic anemia
- Monitor for any postop/surgical blood loss anemia
DVT PPX - Lovenox
Full code
Patient remains at risk of further complication due to decreased wakefulness.
Patient son at bedside and care plan updated
General: No Apparent Distress and Comfortable
HEENT: Negative Oxygen
Respiratory: Clear to Auscultation
Cardiac: Regular Rhythm and S1/S2; Negative Murmur or Rub
Neuro: Awake; Negative Alert or Oriented
Psych: Calm
I spent a total of 52 minutes with the patient or on the floor. More than 50% of this time involved counseling and coordination of care.
Anticipated Discharge: > 48 hours
Subjective/Interval History
-
Date of Service: January 06, 2025
Denies nausea
Objective Data
-
Labs:
Laboratory Results
01/06/25
06:18
WBC 10.8
Hgb 11.3 L
Hct 33.8 L
Plt Count 256
Sodium 140
Potassium 4.3
Chloride 109 H
Carbon Dioxide 25
BUN 44 H
Creatinine 0.7
Glucose 116 H
Calcium 9.3
Vital Signs:
Vital Signs
Temp Pulse Resp BP Pulse Ox
98.2 F 73 17 148/70 94
01/06/25 11:53 01/06/25 11:53 01/06/25 11:53 01/06/25 11:53 01/06/25 11:53
I&O
01/05/25 01/06/25 01/07/25
06:59 06:59 06:59
Intake Total 905 / 905
Output Total 1150 / 1150
Balance -245 / -245
[2025-01-06 17:30] LABS: Glucose - Point of Care 112 mg/dl (70-99)
[2025-01-06] MEDS: LOVENOX 40 MG SC (18:42)
[2025-01-06] MEDS: REMOVE LIDOCAINE PATCH 1 PATCH REMOVE (20:22)
[2025-01-06] MEDS: PEPCID 20 MG TUBE (21:41)
[2025-01-06 23:24] LABS: Glucose - Point of Care 125 mg/dl (70-99)
[2025-01-07] VITALS (7 sets, daily range): BP systolic 118–145; BP diastolic 65–83; PULSE 87–92; O2SAT 91
[2025-01-07] MEDS: DULCOLAX 10 MG RECTAL (05:54)
--- NOTE | 2025-01-07 05:57 | W.PN.ORTHO ---
Today's Communication / Plan
-
79M L TKA 12/29 THV S/P CVA
PT/OT
Weightbearing as tolerated with walker
Ice with elevation to control swelling and pain
Lovenox for DVT prophylaxis
Aquacel dressing to stay in place until Friday then remove
Likely rehab stay once medically stable
Greatly appreciate medical team's efforts with patient
Assessment
.
Dressing:
Clean, dry and intact.
Plan
.
Surgery / Date: LTKA 12/29 THV S/P CVA
Activity:
Out of bed.
PT/OT
Subjective
.
.:
Patient resting comfortably.
Vital Signs and Labs
.
Vital Signs and Labs:
Temp Pulse Resp BP Pulse Ox
98.3 F 81 20 141/65 97
01/07/25 03:14 01/07/25 03:14 01/07/25 03:14 01/07/25 03:14 01/07/25 03:14
PT Cancelled 12/30/24 03:25
INR Cancelled 12/30/24 03:25
Physical Exam
-
Thigh-high Vasquez stocking in place left lower extremity. Aquacel dressing appears clean, dry and intact. Edema noted in the lower extremity. Range of motion 0-90 degrees without pain or instability. Calf is soft and nontender.
[2025-01-07 06:10] LABS: Glucose - Point of Care 141 mg/dl (70-99)
[2025-01-07 08:33] LABS: Hematocrit 35.2 % (39.0-52.0); Hemoglobin 11.7 g/dL (13.0-18.0); Mean Corp Hgb Conc. 33.2 g/dL (33.0-37.0); Mean Corpuscular Volume 96.2 fL (80.0-94.0); Nucleated Red Blood Cells % 0 % (-); Platelet Count 330 10^3/uL (130-400); Red Cell Dist. Width 13.5 % (11.5-14.5)
[2025-01-07 08:41] LABS: Blood Urea Nitrogen 48 mg/dl (9-20); Calcium 9.2 mg/dl (8.4-10.2); Carbon Dioxide 24 mmol/L (22-30); Chloride 110 mmol/L (98-107); Estimated Creatinine Clearance 87 ml/min; Glucose 147 mg/dl (70-99); Potassium 4.1 mmol/L (3.5-5.1); Sodium 140 mmol/L (135-145); eGFR > 60.00
--- NOTE | 2025-01-07 08:45 | CON.MD ---
Documented by User: Brandie Garland PA-C 01/07/25 13:32
Consultation - Medical
-
Referring Provider:�
Chief Complaint:�CVA s/p knee replacement
�
History of Present Illness:�Patient is an 79-year-old male with PMH of (Right bundle branch block, diabetes varicosity, kidney stones, vertigo, hypertension, hyperlipidemia, ascending aortic aneurysm (CT chest 09/19/2024 ascending thoracic aorta 4.4
cm). Osteoarthritis, coronary artery calcification on chest CT 08/2024) who was admitted on 12/29/2024 after having left total knee replacement. Patient was in so much pain. That he was admitted for observation. Patient became progressively
lethargic and hypoxic. Rapid response was called and changed to stroke alert for dysarthria, left gaze preference, not following commands. MRI of the brain revealed multiple bilateral infarcts in the frontal, parietal, occipital lobes and
cerebellum.
Seen by neurology-acute, subacute ischemic infarcts in bilateral cerebral and cerebellar hemisphere thought to be likely cardioembolic in nature. Recommend a rectal aspirin and cardiology evaluation to rule out A-fib.
cardiology consulted for possibility of atrial fibrillation and concern for thromboembolic events. On telemetry there was some strips that are marked possible 'atrial fibrillation ' however visual inspection finds no clear atrial fibrillation on
telemetry monitoring strips. Instead, there is artifact as well as PACs.
Echocardiogram: Normal LVEF. No significant valvular abnormalities. Evaluation for consideration for GABINO, if this is unremarkable would recommend extended cardiac monitoring. Recommend increasing atorvastatin once able to swallow. Due to
patient's severely neurological impairment, cardiology has at this time little to offer. Recommending monitoring on telemetry. Would not proceed with GABINO at this time. At discharge, ambulatory telemetry should be placed, please call us when
transfer to rehab is to be performed.
Seen by pulmonary for new acute hypoxic respiratory insufficiency postoperatively. Suspected obstructive sleep apnea. ABG without evidence of chronic hypercapnia. While in the hospital on CPAP at bed time can continue ---will need close
observation. Will limit as much as possible-unfortunately, with his mental status he is unable to pull the mask off if there was a emesis event. Would only use it at night for now. If he goes to rehab can continue CPAP therapy. After that can be
discharged on nocturnal oxygen therapy until he can perform a sleep study if mental status improves.
-Initial acute hypoxemic respiratory failure likely due to hypoventilation-Resolved .
Patient evaluated by speech. Had flexible endoscopic evaluation of swallowing(FEES) and found to have continued clinical sign of suspected pharyngeal dysphagia as evident by coughing status post ingestion of both thin consistencies, suspicious for
airway in the setting of aphonia and suspected inadequate vocal fold adduction., Mild expressive language impairment, moderate receptive language impairment and likely at least moderate cognitive communication impairment.
Patient was initially placed on p.o. diet of pur�ed solid with mildly thick liquids via teaspoon only with meds crushed in pur�e as able. Patient was eventually placed on NG tube feeding as main nutritional support with therapeutic feeding by
speech. Speech following daily with therapeutic trials of level 4/moderately thick liquids. Video swallow test scheduled for Friday, 01/10 to assess patient's tolerance for oral diet versus need for PEG tube.
Patient seen this morning with son, James at bedside who states that Dad has improved from prior. He is alert and oriented to place, year, month but not to date. He has dysphonia with whispering voice. Hard to hear and difficult to understand
what he is trying to say at times. He has a sense of humor noted by his responses and smile. He denies any pain in the knee at the moment. He is not sure the last time he had a bowel movement. States that he did not have 1 today. He denies
chest pain, shortness of breath. He desires to come to acute inpatient to help and get stronger so he can eventually go back home. 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 Discussion with his son, upon discharge may possibly
have family members move in temporarily to help.
�
Past Medical History:�Right bundle branch block, diabetes varicosity, kidney stones, vertigo, hypertension, hyperlipidemia, ascending aortic aneurysm (CT chest 09/19/2024 ascending thoracic aorta 4.4 cm). Osteoarthritis, coronary artery
calcification on chest CT 08/2024
Procedure History:�Bilateral hernia repair, cystoscopy with renal stone extraction, liposarcoma LLE removed, left TKA�12/29/2024
Family History:�Mom at an early age from heart disease. Dad of old age.
�
Social History:�
Functional Level Premorbidly:�Independent with all activities�. Caregiver to with Parkinson's
Functional Level Currently:�Bed mobility�dependent x 3 for bed mobility. Rolling x 2 right, x 2 left plus max visual cue and tactile for task cues for completion, ADLs�dependent, dependent Shasha out of bed to chair assist x 3
�
Tobacco:�Denies�
Alcohol:�Denies�
Drug use:�Denies�
�
Lives with:� with Parkinson's, does not drive
24-hour assistance available:�
Number of floors:�Multiple stories
# steps to enter:�0
# steps to second floor:
Potential First floor set up:�yes
Driving:�Yes
Occupation: Retired�
�
Allergies:�
Allergy/AdvReac Type Severity Reaction Status Date / Time
No Known Allergies Allergy Verified 12/29/24 07:37
�
Review of Systems:�
Constitutional: (x) abNormal _
Eye: (x) Normal _
Ear/Nose/Throat: (x) Normal _
Respiratory: (x) Normal _
Cardiovascular: (x) Normal _
Gastrointestinal: (x) abNormal _dysphagia
Genitourinary: (x) Normal _
Musculoskeletal: (x) abNormal _left knee replacement
Integumentary: (x) Normal _
Neurologic: (x) abNormal _stroke, dysphonia
Psychiatric: (x) Normal _
Endocrine: (x) Normal _
Hematologic/Lymphatic: (x) Normal _
Allergic/Immunologic: (x) Normal _
�
Medications:�
Active Current Visit Medication List
Category Date Time Status
Acetaminophen [Tylenol Oral Solution] Med 01/04/25 15:59 Active
650 mg TUBE Q6HPRN PRN
Aspirin Chewable [Low Strength Aspirin] Med 01/01/25 14:00 Active
81 mg TUBE DAILY
Bisacodyl [Dulcolax] Med 01/05/25 14:24 Active
10 mg RECTAL DAILYPRN PRN
Docusate Sodium [Colace Liquid] Med 01/05/25 14:25 Active
100 mg TUBE BID
Enoxaparin Sodium [Lovenox] Med 12/30/24 18:00 Active
40 mg SC QPM
Famotidine [Pepcid] Med 12/31/24 22:00 Active
20 mg TUBE HS
Lidocaine [Lidocaine 4% Patch] Med 01/05/25 09:00 Active
1 patch TOPICAL DAILY
Metoprolol [Lopressor] Med 12/31/24 10:00 Active
12.5 mg TUBE BID
Miconazole Nitrate [Desenex/Mitrazol/Zeasorb] Med 12/31/24 20:00 Active
See Dose Instructions TOPICAL BID
Ondansetron Injectable [Zofran] Med 12/29/24 17:58 Active
4 mg IV Q6HPRN PRN
Remove Patch [Remove Lidocaine Patch] Med 01/05/25 20:00 Active
See Dose Instructions REMOVE DAILY@2000
Tamsulosin [Flomax] Med 12/29/24 17:58 Active
0.4 mg PO DAILYPRN PRN
�
Vitals:�
Temp Pulse Resp BP Pulse Ox
97.7 F 82 21 145/80 95
01/07/25 07:07 01/07/25 07:07 01/07/25 07:07 01/07/25 07:07 01/07/25 07:07
Height 5 ft 11 in
Actual Weight 99.201 kg
Body Mass Index (BMI) 30.5
�
Physical Exam:�
General Appearance/Observation: Well-developed, well-nourished individual in no apparent distress.�
Pain/Comfort Assessment: Denies knee pain at the moment�
Mood/Affect: Appropriate�
�
Integumentary/Operative Site:�left knee with Aquacel and Thigh high stocking
�� Pressure Ulcer Evaluation: heels not visualized�-feet in multi podus boots
��
�� Other Type of Wound:
��
Eyes: Conjunctiva/Lids: normal���� Pupils: pupils equal round and reactive to light and Accommodation�
Ears/Nose/Throat: oral mucosa dry,� throat -not visualized�. Dobhoff tube noted right nostril, nose red����������� Lips/Teeth/Gums: tongue - blue, lips dry
Neck: No muscle spasm or tenderness�
Cardiovascular: Heart: regular, no murmur�
Pulses: dorsalis pedis 2+ bilaterally�
Respiratory: Respiratory Effort/Chest Expansion: normal������� Auscultation: rhonchi, diminished BS bilaterally, clear to auscultation bilaterally�
Gastrointestinal: abdomen not tender, no distension, normal abdominal bowel sounds
Genitourinary: No [place]�
Extremities:�Edema: RLE�Cyanosis: None�Trophic�changes: None
�
Neurology Exam:
Orientation: Alert, Oriented to self, Time, Place�
Memory: Impaired, slow
Comprehension: Impaired, needing more time
Two step command: Impaired
Naming: Intact
Cranial Nerves:
�� CNII:�Pupillary light reflex: Intact����Visual Field: unable to assess
�� CN III, IV, : Extraocular muscles: not tracking
�� CN V:�Facial Sensation�at�Forehead: �Maxilla: �Mandible: unable to assess
�� CN VII:�Facial movement: Symmetric
�� CN VIII:�Hearing: Normal
�� CN IX/X:�Speech & swallow: dysphonia, very low volume,�Position of Uvula: Midline
�� CN XI:�Shoulder shrug: decreased on the left more than right
�� CN XII:�Tongue protrusion: Midline
Sensory:
�� Light touch: Intact in bilateral upper and lower extremities
��
�
Reflexes:
�� Biceps: 2+ bilaterally
�� Brachioradialis: 2+ bilaterally
�� Triceps: 2+ bilaterally
�� Patellar: deferred left ,
�� Achilles: absent bilaterally
�� Babinski: deferred
�� Clonus:deferred
�� Renetta: Negative bilaterally�
Cerebellar: Dysmetria/Ataxia: too weak to perform
Musculoskeletal:
Motor: (Manual muscle scale 0-5)�
Muscle SA EF WE EE FF FA HF KE DF EHL PF
Right� 3 2 0 2 3 2 2 2 NT 3 NT
Left 3 2 0 2 2 2 2 2 NT 3 NT
�
Tone: Normal in all extremities�
Range of Motion: Passively within normal limits. Deferred
�
Lab Results
Labs
WBC 10.4 10^3/uL (4.8-10.8) 01/07/25 07:
RBC 3.66 10^6/uL (4.70-6.10) L 01/07/25:
Hgb 11.7 g/dL (13.0-18.0) L 01/07/25
Hct 35.2 % (39.0-52.0) L 01/07/25:
MCV 96.2 fL (80.0-94.0) H 01/07/25
MCH 32.0 pg (27.0-31.0) H 01/07/25:
MCHC 33.2 g/dL (33.0-37.0) 01/07/25:
RDW 13.5 % (11.5-14.5) 01/07/25:
Plt Count 330 10^3/uL (130-400) D 01/07/25:
MPV 9.9 fL (7.4-10.4) 01/07/25:
Abs Immat Gran (auto) 0.1 10^3/uL (0-0.05) H 01/07/25:
Absolute Neuts (auto) 8.2 10^3/uL (1.4-6.5) H 01/07/25:
Absolute Lymphs (auto) 0.7 10^3/uL (1.2-3.4) L 01/07/25 07:31
Absolute Monos (auto) 1.1 10^3/uL (0.1-0.6) H 01/07/25 07:31
Absolute Eos (auto) 0.2 10^3/uL (0-0.7) 01/07/25 07:
Absolute Basos (auto) 0.1 10^3/uL (0-0.2) 01/07/25 07:
Immature Gran % 1.1 % (0-0.5) H 01/07/25 07:
Neutrophils % 79.0 % (42.2-75.2) H 01/07/25:
Lymphocytes % 6.9 % (20.5-51.1) L 01/07/25 07:31
Monocytes % 10.8 % (1.7-9.3) H 01/07/25:
Eosinophils % 1.5 % (0-6) 01/07/25 07:
Basophils % 0.7 % (0-2) 01/07/25 07:
Nucleated RBC % 0 % (-) 01/07/25 07:31
PT Cancelled 12/30/24 03:25
INR Cancelled 12/30/24 03:25
APTT Cancelled 12/30/24 03:25
D-Dimer 8.82 ug/mlFEU (0.00-0.50) H 12/30/24 03:42
pH 7.52 (7.35-7.45) H 01/02/25 20:41
pCO2 29 mmHg (35-48) L 01/02/25 20:41
pO2 62 mmHg (83-108) L 01/02/25 20:41
HCO3 23.7 mmol/L (21-28) 01/02/25 20:41
Base Excess 1.5 mmol/L 01/02/25 20:41
ABG O2 Sat (Measured) 93.6 % (94-98) L 01/02/25 20:41
Methemoglobin 0.6 % (0.5-1.5) 12/30/24 16:15
O2 Delivery Level 01/02/25 20:41
Sodium 140 mmol/L (135-145) 01/07/25 07:31
Potassium 4.1 mmol/L (3.5-5.1) 01/07/25 07:31
Chloride 110 mmol/L (98-107) H 01/07/25 07:31
Carbon Dioxide 24 mmol/L (22-30) 01/07/25 07:31
BUN 48 mg/dl (9-20) H 01/07/25 07:31
Creatinine 0.8 mg/dL (0.7-1.3) 01/07/25 07:31
Estimated Creat Clear 87 ml/min 01/07/25 07:31
eGFR > 60.00 01/07/25 07:31
Glucose 147 mg/dl (70-99) H 01/07/25 07:31
Hemoglobin A1c 5.2 % (4.0-5.6) 12/20/24 11:01
Lactic Acid 1.2 mmol/L (0.7-2.0) 12/30/24 03:42
Calcium 9.2 mg/dl (8.4-10.2) 01/07/25 07:31
Magnesium 1.9 mg/dl (1.6-2.3) 12/31/24 03:23
Ferritin 75.9 ng/ml (17.9-464.0) 12/31/24 03:23
Total Bilirubin 1.0 mg/dl (0.2-1.3) 12/30/24 03:42
Direct Bilirubin 0.1 mg/dl (0.0-0.4) 12/30/24 03:42
AST 20 U/L (17-59) 12/30/24 03:42
ALT 15 U/L (0-50) 12/30/24 03:42
Alkaline Phosphatase 48 U/L (38-126) 12/30/24 03:42
Ammonia 10 umol/L (9-30) 12/30/24 10:23
Creatine Kinase 137 U/L (55-170) 12/30/24 03:42
Troponin I 0.021 ng/ml 12/30/24 00:49
Total Protein 6.5 g/dl (6.3-8.2) 12/30/24 03:42
Albumin 4.0 g/dl (3.5-5.0) 12/30/24 03:42
Triglycerides 90 mg/dl (10-149) 12/31/24 03:23
Total Cholesterol 106 mg/dl (50-199) 12/31/24 03:23
LDL Cholesterol, Calc 38 mg/dl 12/31/24 03:23
VLDL Cholesterol, Calc 18 mg/dl (0-30) 12/31/24 03:23
HDL Cholesterol 50 mg/dl 12/31/24 03:23
Vitamin B12 528 pg/ml (239-931) 12/31/24 03:23
Folate 8.4 ng/ml (2.76-20) 12/31/24 03:23
TSH (Reflex) 0.86 uIU/ml (0.47-4.68) 12/30/24 03:42
Urine Color Yellow 12/30/24 00:46
Urine Clarity Clear (Clear) 12/30/24 00:46
Urine pH 5.0 (5.0-9.0) 12/30/24 00:46
Ur Specific [place] 1.010 (<1.030) 12/30/24 00:46
Urine Ketones Negative (Negative) 12/30/24 00:46
Ur Occult Blood Reflex 2+ (Negative) A 12/30/24 00:46
Urine Nitrite (Reflex) Negative (Negative) 12/30/24 00:46
Urine Bilirubin Negative (Negative) 12/30/24 00:46
Urine Urobilinogen 1+ (Neg - 1+) 12/30/24 00:46
Leukocyte Esterase Rfl Negative (Negative) 12/30/24 00:46
Urine RBC 0-2 /HPF (0-2) 12/30/24 00:46
Urine WBC (Reflex) 0-2 /HPF (0-5) 12/30/24 00:46
Ur Squamous Epith Cells 0-2 /LPF (Few) 12/30/24 00:46
Urine Glucose Negative (Negative) 12/30/24 00:46
Urine Albumin (Reflex) 2+ (Neg - Trace) A 12/30/24 00:46
POC Glucose 141 mg/dl (70-99) H 01/07/25 06:09
Blood Type Cancelled 12/20/24 11:01
Antibody Screen Cancelled 12/20/24 11:01
�
Diagnostic Results:�as per HPI�
Transthoracic Echocardiogram -12/30/24
SUMMARY
1. Ejection fraction is 65-70% by visual assessment.
2. Right ventricular size and systolic function are within normal limits.
3. Mild aortic valve stenosis. Mild to moderate aortic regurgitation.
4. Trace mitral valve regurgitation.
5. Trace tricuspid regurgitation. Estimated pulmonary artery pressure of 29 mmHg assuming a right atrial pressure of 3 mmHg.
6. Dilated aortic root and ascending aorta. Sinus of valsalva measures 4.4 cm, sinotubular junction measures 4.4 cm, and ascending aorta measures 4.0 cm.

Transthoracic Echo procedure
A complete Transthoracic Echocardiogram was performed utilizing Two-Dimensional evaluation with color flow and spectral Doppler analysis.
PHYSICIAN INTERPRETATION
Left Ventricle:
No regional wall motion abnormalities. Ejection fraction is 65-70% by visual assessment. There is mild concentric left ventricular hypertrophy. Normal LV diastolic function. Normal left ventricular size and systolic function.
Right Ventricle:
Right ventricular size and systolic function are within normal limits.
Left Atrium:
Indexed left atrial volume is within normal range (15-34 ml/m2).
Right Atrium:
The right atrium is not well visualized.
Interatrial Septum:
The interatrial septum appears normal and intact, with no evidence of interatrial shunting.
Aortic Valve:
Aortic valve is trileaflet. Doppler findings and somewhat restricted movement of the aortic valve cusps are consistent with mild aortic stenosis. mild to moderate aortic regurgitation. The peak aortic valve gradient is 21.7 mmHg. The mean aortic
valve gradient is 12.0 mmHg. Thickened aortic valve.
Mitral Valve:
Mitral valve opens normally. There is thickening of the anterior and posterior leaflets of the mitral valve. Trace mitral valve regurgitation. Dense posterior mitral annular calcification.
Tricuspid Valve:
Tricuspid valve opens normally. Trace tricuspid regurgitation. Estimated pulmonary artery pressure of 29 mmHg assuming a right atrial pressure of 3 mmHg.
Pulmonic Valve:
Pulmonic valve opens normally. Trace pulmonary valve regurgitation.
Aorta:
Dilated aortic root and ascending aorta. Sinus of valsalva measures 4.4 cm, sinotubular junction measures 4.4 cm, and ascending aorta measures 4.0 cm.
Pericardium:
There is no evidence of pericardial effusion.
EE/30- mildly-moderately abnormal study for age based on low amplitude even for age, generalized slowing demonstrated bi-hemispherically equally.
Peripheral vascular ultrasound�12/31/2024
FINDINGS: Duplex venous ultrasound of both lower extremities is performed.
There is no evidence for deep venous thrombosis bilaterally. There is normal compressibility, color flow, and spectral Doppler flow of the deep venous system bilaterally from the common femoral vein through the posterior tibial vein. The proximal
greater saphenous veins are also patent bilaterally.
IMPRESSION: No evidence of deep venous thrombosis bilaterally.
�Brain MRI
There are numerous scattered foci of abnormal diffusion-weighted signal compatible with acute to subacute infarction within both cerebral hemispheres, with involvement of the frontal, parietal, and occipital lobes. Distribution appears to be in the
vascular territory of the middle cerebral arteries and posterior cerebral arteries bilaterally. A few small foci of acute to subacute infarct involving the cerebellar hemispheres, slightly greater on the left compared to the right.
No evidence for associated hemorrhage or mass effect.
CTA
Bilateral cervical carotid calcified plaque formation, as described. Right ICA estimated luminal diameter reduction of 50%. No dissection or occlusion.
No hemodynamically significant stenosis involving the left common or internal carotid artery. No [place] of [place] region aneurysm or stenosis. No cerebral artery significant plaque, stenosis, thrombus, or occlusion.
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 Concerns for
aspiration was placed on Dobhoff tube feed with trial of puree diet. video swallow test scheduled for Friday.
�
Plan�
PM&R�PT/OT to increase independence with ADLs, improve balance, coordination, endurance, strength, mobility, community reintegration, decreased burden of care on others and family education.�
�
Left total knee arthroplasty: 12/29/[address] Nicholas. Ortho protocols:Weightbearing as tolerated with walker. Ice with elevation to control swelling and pain. Aquacel dressing to stay in place until Friday then remove.Thigh-high Vasquez stocking in
place left lower extremity
CVA: Secondary prophylaxis with aspirin through tube (treatment to be determined by neurology) statin, and blood pressure control (SBP less than 180 and diastolic less than 100 to participate with therapy for ischemic stroke). Continue to monitor
neurologic status.�
Dysphagia: speech evaluation, oral care protocol, aspiration precautions.�Dobhoff and trial of puree with moderately thick liquid. VSE for Friday. Advance diet as tolerated.�
Dysarthria: speech evaluation�
Severe dysphonia: speech evaluation
Aphasia: speech evaluation�
HTN: Uncontrolled. Metoprolol 12.5 mg tube twice daily, hydralazine for systolic blood pressure more than 160. monitor closely�
HLD: Statin�once able to tolerate p.o.
Coronary artery disease�: Aspirin, statin, beta-lana�
NO Atrial fibrillation:�Per cardiology�no A-fib on EKG. To be discharged on cardiac monitoring. No indication for anticoagulant ������������������������������������
Possible DANIEL: on CPAP while in hospital. Can continue once discharged. Will need outpatient sleep study. Assessment for oxygen pulsimetry
Leftlower extremity edema: TEDS . Peripheral U/S- no DVT
Anemia: Postop and likely multifactorial.� Continue to monitor.�
Psych� Monitor mood, adjust medications as needed.�
Skin: monitor for pressure sores/rashes/lesions.�
Pain: acetaminophen as needed-tube.� Lidocaine patch
Bowel: Colace-100 mg tube twice a day, PRN bisacodyl.�
Bladder/BPH: Time void, PVRs, PRN straight cath.� Tamsulosin 0.4 mg daily as needed
GI Prophylaxis: Famotidine 20 mg tube bedtime
DVT Prophylaxis: Lovenox SC every afternoon
Pulmonary: Incentive spirometry�
Obesity type 1: Continue to veterans' counselor patient about diet adjustments to control obesity. Body habitus and increased force to move body and extremities causes further difficulty with functional tasks.�
Safety: Continue to reinforce assistance with all transfers.�
Code Status:� Full code
Dispo�(date/plan/equipment needs): Home with family care.� Social history reviewed.�
�
Functional and Medical Goals:�Modified Independent with ADL�s, ambulation, transfers�
Discharge Destination:�Patient would benefit from acute inpatient rehab once video swallow test has been completed, stable on feeding tube or po diet and patient medically stable and cleared for PT/OT to increase independence with ADLs, improve
balance, coordination, endurance, strength, mobility, community reintegration, decreased burden of care on others and family education.�
�
Summary of recommendations:
�CVA: Secondary prophylaxis currently on aspirin tube (treatment to be determined by neurology) statin, and blood pressure control
HTN: continue medicine. (SBP less than 180 and diastolic less than 100 to participate with therapy for ischemic stroke)
Dysphagia: to be stable on PEG tube vs PO diet prior to discharge
Pain: acetaminophen as needed-tube.� Lidocaine patch. Patient must be controlled on oral medications for at least 24 hours prior to discharge
Skin: monitor for pressure sores/rashes/lesions.�
�
Bowel: Colace-100 mg tube twice a day, PRN bisacodyl.�
Thank you for allowing me to care for your patient. Please contact me with any questions or concerns.

Documented by User: Chente Stark MD 01/07/25 21:06
Consultation - Medical
-
Referring Provider:�
Chief Complaint:�CVA s/p knee replacement
�
History of Present Illness:�Patient is an 79-year-old Right handed male with PMH of (Right bundle branch block, diabetes varicosity, kidney stones, vertigo, hypertension, hyperlipidemia, ascending aortic aneurysm (CT chest 09/19/2024 ascending
thoracic aorta 4.4 cm). Osteoarthritis, coronary artery calcification on chest CT 08/2024) who was admitted on 12/29/2024 after having left total knee replacement. Patient was in so much pain. That he was admitted for observation. Patient became
progressively lethargic and hypoxic. Rapid response was called and changed to stroke alert for dysarthria, left gaze preference, not following commands. MRI of the brain revealed multiple bilateral infarcts in the frontal, parietal, occipital
lobes and cerebellum.
Seen by neurology-acute, subacute ischemic infarcts in bilateral cerebral and cerebellar hemisphere thought to be likely cardioembolic in nature. Recommend a rectal aspirin and cardiology evaluation to rule out A-fib.
cardiology consulted for possibility of atrial fibrillation and concern for thromboembolic events. On telemetry there was some strips that are marked possible 'atrial fibrillation ' however visual inspection finds no clear atrial fibrillation on
telemetry monitoring strips. Instead, there is artifact as well as PACs.
Echocardiogram: Normal LVEF. No significant valvular abnormalities. Evaluation for consideration for GABINO, if this is unremarkable would recommend extended cardiac monitoring. Recommend increasing atorvastatin once able to swallow. Due to
patient's severely neurological impairment, cardiology has at this time little to offer. Recommending monitoring on telemetry. Would not proceed with GABINO at this time. At discharge, ambulatory telemetry should be placed, please call us when
transfer to rehab is to be performed.
Seen by pulmonary for new acute hypoxic respiratory insufficiency postoperatively. Suspected obstructive sleep apnea. ABG without evidence of chronic hypercapnia. While in the hospital on CPAP at bed time can continue ---will need close
observation. Will limit as much as possible-unfortunately, with his mental status he is unable to pull the mask off if there was a emesis event. Would only use it at night for now. If he goes to rehab can continue CPAP therapy. After that can be
discharged on nocturnal oxygen therapy until he can perform a sleep study if mental status improves.
-Initial acute hypoxemic respiratory failure likely due to hypoventilation-Resolved .
Patient evaluated by speech. Had flexible endoscopic evaluation of swallowing(FEES) and found to have continued clinical sign of suspected pharyngeal dysphagia as evident by coughing status post ingestion of both thin consistencies, suspicious for
airway in the setting of aphonia and suspected inadequate vocal fold adduction., Mild expressive language impairment, moderate receptive language impairment and likely at least moderate cognitive communication impairment.
Patient was initially placed on p.o. diet of pur�ed solid with mildly thick liquids via teaspoon only with meds crushed in pur�e as able. Patient was eventually placed on NG tube feeding as main nutritional support with therapeutic feeding by
speech. Speech following daily with therapeutic trials of level 4/moderately thick liquids. Video swallow test scheduled for Friday, 01/10 to assess patient's tolerance for oral diet versus need for PEG tube.
Patient seen this morning with son, James at bedside who states that Dad has improved from prior. He is alert and oriented to place, year, month but not to date. He has dysphonia with whispering voice. Hard to hear and difficult to understand
what he is trying to say at times. He has a sense of humor noted by his responses and smile. He denies any pain in the knee at the moment. He is not sure the last time he had a bowel movement. States that he did not have 1 today. He denies
chest pain, shortness of breath. He desires to come to acute inpatient to help and get stronger so he can eventually go back home. 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 Discussion with his son, upon discharge may possibly
have family members move in temporarily to help.
�
Past Medical History:�Right bundle branch block, diabetes varicosity, kidney stones, vertigo, hypertension, hyperlipidemia, ascending aortic aneurysm (CT chest 09/19/2024 ascending thoracic aorta 4.4 cm). Osteoarthritis, coronary artery
calcification on chest CT 08/2024
Procedure History:�Bilateral hernia repair, cystoscopy with renal stone extraction, liposarcoma LLE removed, left TKA�12/29/2024
Family History:�Mom at an early age from heart disease. Dad of old age.
�
Social History:�
Functional Level Premorbidly:�Independent with all activities�. Caregiver to with Parkinson's
Functional Level Currently:�Bed mobility�dependent x 3 for bed mobility. Rolling x 2 right, x 2 left plus max visual cue and tactile for task cues for completion, ADLs�dependent, dependent Shasha out of bed to chair assist x 3
�
Tobacco:�Denies�
Alcohol:�Denies�
Drug use:�Denies�
�
Lives with:� with Parkinson's, does not drive
24-hour assistance available:�Possibly
Number of floors:�Multiple stories
# steps to enter:�0
# steps to second floor:full flight
Potential First floor set up:�yes
Driving:�Yes
Occupation: Retired�
�
Allergies:�
Allergy/AdvReac Type Severity Reaction Status Date / Time
No Known Allergies Allergy Verified 12/29/24 07:37
�
Review of Systems:�
Constitutional: (x) abNormal _ fatigue
Eye: (x) Normal _
Ear/Nose/Throat: (x) Normal _
Respiratory: (x) Normal _
Cardiovascular: (x) Normal _
Gastrointestinal: (x) abNormal _dysphagia
Genitourinary: (x) Normal _
Musculoskeletal: (x) abNormal _left knee replacement
Integumentary: (x) Normal _
Neurologic: (x) abNormal _stroke, dysphonia
Psychiatric: (x) Normal _
Endocrine: (x) Normal _
Hematologic/Lymphatic: (x) Normal _
Allergic/Immunologic: (x) Normal _
�
Medications:�
Active Current Visit Medication List
Category Date Time Status
Acetaminophen [Tylenol Oral Solution] Med 01/04/25 15:59 Active
650 mg TUBE Q6HPRN PRN
Aspirin Chewable [Low Strength Aspirin] Med 01/01/25 14:00 Active
81 mg TUBE DAILY
Bisacodyl [Dulcolax] Med 01/05/25 14:24 Active
10 mg RECTAL DAILYPRN PRN
Docusate Sodium [Colace Liquid] Med 01/05/25 14:25 Active
100 mg TUBE BID
Enoxaparin Sodium [Lovenox] Med 12/30/24 18:00 Active
40 mg SC QPM
Famotidine [Pepcid] Med 12/31/24 22:00 Active
20 mg TUBE HS
Lidocaine [Lidocaine 4% Patch] Med 01/05/25 09:00 Active
1 patch TOPICAL DAILY
Metoprolol [Lopressor] Med 12/31/24 10:00 Active
12.5 mg TUBE BID
Miconazole Nitrate [Desenex/Mitrazol/Zeasorb] Med 12/31/24 20:00 Active
See Dose Instructions TOPICAL BID
Ondansetron Injectable [Zofran] Med 12/29/24 17:58 Active
4 mg IV Q6HPRN PRN
Remove Patch [Remove Lidocaine Patch] Med 01/05/25 20:00 Active
See Dose Instructions REMOVE DAILY@1999
Tamsulosin [Flomax] Med 12/29/24 17:58 Active
0.4 mg PO DAILYPRN PRN
�
Vitals:�
Temp Pulse Resp BP Pulse Ox
97.7 F 82 21 145/80 95
01/07/25 07:07 01/07/25 07:07 01/07/25 07:07 01/07/25 07:07 01/07/25 07:07
Height 5 ft 11 in
Actual Weight 99.201 kg
Body Mass Index (BMI) 30.5
�
Physical Exam:�
General Appearance/Observation: Well-developed, well-nourished male in no apparent distress.�
Pain/Comfort Assessment: Denies knee pain at the moment�
Mood/Affect: Appropriate�
�
Integumentary/Operative Site:�left knee with Aquacel and Thigh high stocking
�� Pressure Ulcer Evaluation: heels not visualized�-feet in multi podus boots
��
Eyes: Conjunctiva/Lids: normal���� Pupils: pupils equal round and reactive to light and Accommodation�
Ears/Nose/Throat: oral mucosa dry,� throat -not visualized�. Dobhoff tube noted right nostril, nose red����������� Lips/Teeth/Gums: tongue - blue, lips dry
Neck: No muscle spasm or tenderness�
Cardiovascular: Heart: regular, no murmur�
Pulses: dorsalis pedis 2+ bilaterally�
Respiratory: Respiratory Effort/Chest Expansion: normal������� Auscultation: rhonchi, diminished BS bilaterally, clear to auscultation bilaterally�
Gastrointestinal: abdomen not tender, no distension, normal abdominal bowel sounds
Genitourinary: No [place]�
Extremities:�Edema: moderate left knee and distally on left, none on right, has teds on�Cyanosis: None�Trophic�changes: None
�
Neurology Exam:
Orientation: Alert, Oriented to self, Time, Place�
Memory: Impaired, slow
Comprehension: Impaired, needing more time to process
Two step command: Impaired
Naming: Intact
Cranial Nerves:
�� CNII:�Pupillary light reflex: Intact����Visual Field: unable to assess
�� CN III, IV, : Extraocular muscles: intact
�� CN V:�Facial Sensation�at�Forehead: �Maxilla: �Mandible: difficult to asses with command following and language concern.
�� CN VII:�Facial movement: Symmetric
�� CN VIII:�Hearing: Normal
�� CN IX/X:�Speech & swallow: dysphonia, very low volume,�Position of Uvula: Midline
�� CN XI:�Shoulder shrug: decreased on the left more than right
�� CN XII:�Tongue protrusion: Midline
Sensory:
�� Light touch: Intact in bilateral right upper and lower extremities. Left side impaired.
��
�
Reflexes:
�� Biceps: 2+ bilaterally
�� Brachioradialis: 2+ bilaterally
�� Triceps: 2+ bilaterally
�� Patellar: deferred left , intact right
�� Achilles: absent bilaterally
�� Babinski: deferred
�� Clonus:deferred
�� Renetta: Negative bilaterally�
Cerebellar: Dysmetria/Ataxia: too weak to perform
Musculoskeletal: Motor: (Manual muscle scale 0-5)�Limited exam with fatigue and command following Appears to be at least 2/5 in both arms/legs.
Muscle SA EF WE EE FF FA HF KE DF EHL PF
Right�
Left
�
Tone: Normal in all extremities�
Range of Motion: Passively within functional limits.
�
Lab Results
Labs
WBC 10.4 10^3/uL (4.8-10.8) 01/07/25 07:31
RBC 3.66 10^6/uL (4.70-6.10) L 01/07/25 07:31
Hgb 11.7 g/dL (13.0-18.0) L 01/07/25 07:31
Hct 35.2 % (39.0-52.0) L 01/07/25 07:31
MCV 96.2 fL (80.0-94.0) H 01/07/25 07:31
MCH 32.0 pg (27.0-31.0) H 01/07/25 07:31
MCHC 33.2 g/dL (33.0-37.0) 01/07/25 07:
RDW 13.5 % (11.5-14.5) 01/07/25 07:
Plt Count 330 10^3/uL (130-400) D 01/07/25 07:
MPV 9.9 fL (7.4-10.4) 01/07/25:
Abs Immat Gran (auto) 0.1 10^3/uL (0-0.05) H 01/07/25:
Absolute Neuts (auto) 8.2 10^3/uL (1.4-6.5) H 01/07/25
Absolute Lymphs (auto) 0.7 10^3/uL (1.2-3.4) L 01/07/25:
Absolute Monos (auto) 1.1 10^3/uL (0.1-0.6) H 01/07/25
Absolute Eos (auto) 0.2 10^3/uL (0-0.7) 01/07/25:
Absolute Basos (auto) 0.1 10^3/uL (0-0.2) 01/07/25:
Immature Gran % 1.1 % (0-0.5) H 01/07/25 07:
Neutrophils % 79.0 % (42.2-75.2) H 01/07/25:
Lymphocytes % 6.9 % (20.5-51.1) L 01/07/25:
Monocytes % 10.8 % (1.7-9.3) H 01/07/25:
Eosinophils % 1.5 % (0-6) 01/07/25
Basophils % 0.7 % (0-2) 01/07/25
Nucleated RBC % 0 % (-) 01/07/25
PT Cancelled 12/30/24 03:25
INR Cancelled 12/30/24 03:25
APTT Cancelled 12/30/24 03:25
D-Dimer 8.82 ug/mlFEU (0.00-0.50) H 12/30/24 03:42
pH 7.52 (7.35-7.45) H 01/02/25 20:41
pCO2 29 mmHg (35-48) L 01/02/25 20:41
pO2 62 mmHg (83-108) L 01/02/25 20:41
HCO3 23.7 mmol/L (21-28) 01/02/25 20:41
Base Excess 1.5 mmol/L 01/02/25 20:41
ABG O2 Sat (Measured) 93.6 % (94-98) L 01/02/25 20:41
Methemoglobin 0.6 % (0.5-1.5) 12/30/24 16:15
O2 Delivery Level 01/02/25 20:41
Sodium 140 mmol/L (135-145) 01/07/25 07:31
Potassium 4.1 mmol/L (3.5-5.1) 01/07/25 07:31
Chloride 110 mmol/L (98-107) H 01/07/25 07:31
Carbon Dioxide 24 mmol/L (22-30) 01/07/25 07:31
BUN 48 mg/dl (9-20) H 01/07/25 07:31
Creatinine 0.8 mg/dL (0.7-1.3) 01/07/25 07:31
Estimated Creat Clear 87 ml/min 01/07/25 07:31
eGFR > 60.00 01/07/25 07:31
Glucose 147 mg/dl (70-99) H 01/07/25 07:31
Hemoglobin A1c 5.2 % (4.0-5.6) 12/20/24 11:01
Lactic Acid 1.2 mmol/L (0.7-2.0) 12/30/24 03:42
Calcium 9.2 mg/dl (8.4-10.2) 01/07/25 07:31
Magnesium 1.9 mg/dl (1.6-2.3) 12/31/24 03:23
Ferritin 75.9 ng/ml (17.9-464.0) 12/31/24 03:23
Total Bilirubin 1.0 mg/dl (0.2-1.3) 12/30/24 03:42
Direct Bilirubin 0.1 mg/dl (0.0-0.4) 12/30/24 03:42
AST 20 U/L (17-59) 12/30/24 03:42
ALT 15 U/L (0-50) 12/30/24 03:42
Alkaline Phosphatase 48 U/L (38-126) 12/30/24 03:42
Ammonia 10 umol/L (9-30) 12/30/24 10:23
Creatine Kinase 137 U/L (55-170) 12/30/24 03:42
Troponin I 0.021 ng/ml 12/30/24 00:49
Total Protein 6.5 g/dl (6.3-8.2) 12/30/24 03:42
Albumin 4.0 g/dl (3.5-5.0) 12/30/24 03:42
Triglycerides 90 mg/dl (10-149) 12/31/24 03:23
Total Cholesterol 106 mg/dl (50-199) 12/31/24 03:23
LDL Cholesterol, Calc 38 mg/dl 12/31/24 03:23
VLDL Cholesterol, Calc 18 mg/dl (0-30) 12/31/24 03:23
HDL Cholesterol 50 mg/dl 12/31/24 03:23
Vitamin B12 528 pg/ml (239-931) 12/31/24 03:23
Folate 8.4 ng/ml (2.76-20) 12/31/24 03:23
TSH (Reflex) 0.86 uIU/ml (0.47-4.68) 12/30/24 03:42
Urine Color Yellow 12/30/24 00:46
Urine Clarity Clear (Clear) 12/30/24 00:46
Urine pH 5.0 (5.0-9.0) 12/30/24 00:46
Ur Specific [place] 1.010 (<1.030) 12/30/24 00:46
Urine Ketones Negative (Negative) 12/30/24 00:46
Ur Occult Blood Reflex 2+ (Negative) A 12/30/24 00:46
Urine Nitrite (Reflex) Negative (Negative) 12/30/24 00:46
Urine Bilirubin Negative (Negative) 12/30/24 00:46
Urine Urobilinogen 1+ (Neg - 1+) 12/30/24 00:46
Leukocyte Esterase Rfl Negative (Negative) 12/30/24 00:46
Urine RBC 0-2 /HPF (0-2) 12/30/24 00:46
Urine WBC (Reflex) 0-2 /HPF (0-5) 12/30/24 00:46
Ur Squamous Epith Cells 0-2 /LPF (Few) 12/30/24 00:46
Urine Glucose Negative (Negative) 12/30/24 00:46
Urine Albumin (Reflex) 2+ (Neg - Trace) A 12/30/24 00:46
POC Glucose 141 mg/dl (70-99) H 01/07/25 06:09
Blood Type Cancelled 12/20/24 11:01
Antibody Screen Cancelled 12/20/24 11:01
�
Diagnostic Results:�as per HPI�
Transthoracic Echocardiogram -12/30/24
SUMMARY
1. Ejection fraction is 65-70% by visual assessment.
2. Right ventricular size and systolic function are within normal limits.
3. Mild aortic valve stenosis. Mild to moderate aortic regurgitation.
4. Trace mitral valve regurgitation.
5. Trace tricuspid regurgitation. Estimated pulmonary artery pressure of 29 mmHg assuming a right atrial pressure of 3 mmHg.
6. Dilated aortic root and ascending aorta. Sinus of valsalva measures 4.4 cm, sinotubular junction measures 4.4 cm, and ascending aorta measures 4.0 cm.

Transthoracic Echo procedure
A complete Transthoracic Echocardiogram was performed utilizing Two-Dimensional evaluation with color flow and spectral Doppler analysis.
PHYSICIAN INTERPRETATION
Left Ventricle:
No regional wall motion abnormalities. Ejection fraction is 65-70% by visual assessment. There is mild concentric left ventricular hypertrophy. Normal LV diastolic function. Normal left ventricular size and systolic function.
Right Ventricle:
Right ventricular size and systolic function are within normal limits.
Left Atrium:
Indexed left atrial volume is within normal range (15-34 ml/m2).
Right Atrium:
The right atrium is not well visualized.
Interatrial Septum:
The interatrial septum appears normal and intact, with no evidence of interatrial shunting.
Aortic Valve:
Aortic valve is trileaflet. Doppler findings and somewhat restricted movement of the aortic valve cusps are consistent with mild aortic stenosis. mild to moderate aortic regurgitation. The peak aortic valve gradient is 21.7 mmHg. The mean aortic
valve gradient is 12.0 mmHg. Thickened aortic valve.
Mitral Valve:
Mitral valve opens normally. There is thickening of the anterior and posterior leaflets of the mitral valve. Trace mitral valve regurgitation. Dense posterior mitral annular calcification.
Tricuspid Valve:
Tricuspid valve opens normally. Trace tricuspid regurgitation. Estimated pulmonary artery pressure of 29 mmHg assuming a right atrial pressure of 3 mmHg.
Pulmonic Valve:
Pulmonic valve opens normally. Trace pulmonary valve regurgitation.
Aorta:
Dilated aortic root and ascending aorta. Sinus of valsalva measures 4.4 cm, sinotubular junction measures 4.4 cm, and ascending aorta measures 4.0 cm.
Pericardium:
There is no evidence of pericardial effusion.
EE/30- mildly-moderately abnormal study for age based on low amplitude even for age, generalized slowing demonstrated bi-hemispherically equally.
Peripheral vascular ultrasound�12/31/2024
FINDINGS: Duplex venous ultrasound of both lower extremities is performed.
There is no evidence for deep venous thrombosis bilaterally. There is normal compressibility, color flow, and spectral Doppler flow of the deep venous system bilaterally from the common femoral vein through the posterior tibial vein. The proximal
greater saphenous veins are also patent bilaterally.
IMPRESSION: No evidence of deep venous thrombosis bilaterally.
�Brain MRI
There are numerous scattered foci of abnormal diffusion-weighted signal compatible with acute to subacute infarction within both cerebral hemispheres, with involvement of the frontal, parietal, and occipital lobes. Distribution appears to be in the
vascular territory of the middle cerebral arteries and posterior cerebral arteries bilaterally. A few small foci of acute to subacute infarct involving the cerebellar hemispheres, slightly greater on the left compared to the right.
No evidence for associated hemorrhage or mass effect.
CTA
Bilateral cervical carotid calcified plaque formation, as described. Right ICA estimated luminal diameter reduction of 50%. No dissection or occlusion.
No hemodynamically significant stenosis involving the left common or internal carotid artery. No [place] of [place] region aneurysm or stenosis. No cerebral artery significant plaque, stenosis, thrombus, or occlusion.
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 Concerns for
aspiration was placed on Dobhoff tube feed with trial of puree diet. video swallow test scheduled for Friday.
�
Plan�
PM&R�PT/OT to increase independence with ADLs, improve balance, coordination, endurance, strength, mobility, community reintegration, decreased burden of care on others and family education.�
�
Left total knee arthroplasty: 12/29/[address] Nicholas. Ortho protocols:Weightbearing as tolerated with walker. Ice with elevation to control swelling and pain. Aquacel dressing to stay in place until Friday then remove.Thigh-high Vasquez stocking in
place left lower extremity
-Focus on keeping left knee straight, no pillows under knee, keep bed flat under knee.
CVA: Secondary prophylaxis with aspirin through tube (treatment to be determined by neurology) statin, and blood pressure control (SBP less than 180 and diastolic less than 100 to participate with therapy for ischemic stroke). Continue to monitor
neurologic status.�
Dysphagia: speech evaluation, oral care protocol, aspiration precautions.�Dobhoff and trial of puree with moderately thick liquid. VSE for Friday. Advance diet as tolerated.�
Dysarthria: speech evaluation�
Significant hypophonia: speech evaluation
Aphasia: speech evaluation�
HTN: Uncontrolled. Metoprolol 12.5 mg tube twice daily, hydralazine for systolic blood pressure more than 160. monitor closely�
HLD: Statin�once able to tolerate p.o.
Coronary artery disease�: Aspirin, statin, beta-lana�
NO Atrial fibrillation:�Per cardiology�no A-fib on EKG. To be discharged on cardiac monitoring. No indication for anticoagulant ������������������������������������
Possible DANIEL: on CPAP while in hospital. Can continue once discharged. Will need outpatient sleep study. Assessment for oxygen pulsimetry
Left lower extremity edema: TEDS . Peripheral U/S- no DVT
Anemia: Postop and likely multifactorial.� Continue to monitor.�
Psych� Monitor mood, adjust medications as needed.�
Skin: monitor for pressure sores/rashes/lesions.�
Pain: acetaminophen as needed-tube.� Lidocaine patch
Bowel: Monitor bowels on tube feeds. PRN bisacodyl.�
Bladder/BPH: Time void, PVRs, PRN straight cath.� Tamsulosin 0.4 mg daily as needed
GI Prophylaxis: Famotidine 20 mg tube bedtime
DVT Prophylaxis: Lovenox SC every afternoon
Pulmonary: Incentive spirometry�
Obesity type 1: Continue to veterans' counselor patient about diet adjustments to control obesity. Body habitus and increased force to move body and extremities causes further difficulty with functional tasks.�
Safety: Continue to reinforce assistance with all transfers.�
Code Status:� Full code
Dispo�(date/plan/equipment needs): Home with family care.� Social history reviewed.�
Functional and Medical Goals:�Modified Independent with ADL�s, ambulation, transfers�
Discharge Destination:�Patient would benefit from acute inpatient rehab once video swallow test has been completed, stable on feeding tube or po diet and patient medically stable and cleared for PT/OT to increase independence with ADLs, improve
balance, coordination, endurance, strength, mobility, community reintegration, decreased burden of care on others and family education.�
Attending Statement:
I saw and examined the patient today. Reviewed care plan with patient, therapy, nursing, and physician assistant art director. I agree with the above subjective and physical exam, and plan as documented by HÉCTOR Garland with adjustments made as necessary.
Hypertensive discussion with patient, , son. Reviewed overall stroke concerns including oral hydration and nutrition. Reviewed PEG tube's and ability to have them removed if patient is can get better with eating. Currently patient trying to
tolerate pur�e and thickened liquid diet with therapy. If he can maintain nutrition and hydration can come to acute rehabilitation. All questions answered. A total of 60 minutes were spent with the patient preparing for the evaluation, obtaining
history, performing examination and evaluation, counseling, data review, case management, care coordination, mail order sorter, and EMR documentation.
Thank you for allowing me to care for your patient. Please contact me with any questions or concerns.
Consultation
-
Date/Time Consultation Requested: 01/06/25
Date/Time Consultation Performed: 01/07/25
Requesting Provider: Dr. Dean Noyola
Performing Provider: Brandie Garland/Dr. Chente Stark
Reason for Consultation: Stroke
[2025-01-07] MEDS: COLACE LIQUID 100 MG TUBE ×2 (10:23→20:13)
[2025-01-07] MEDS: LIDOCAINE 4% PATCH 1 PATCH TOPICAL (10:23)
[2025-01-07] MEDS: LOW STRENGTH ASPIRIN 81 MG TUBE (10:23)
[2025-01-07] MEDS: LOPRESSOR TUBE ×2 (10:24→20:11)
[2025-01-07] MEDS: DESENEX/MITRAZOL/ZEASORB 1 APPLIC TOPICAL ×2 (10:24→20:11)
--- NOTE | 2025-01-07 11:35 | CM ---
CM referred patient to several other acute rehabs including [facility], [facility], [facility] and [facility] . CM is awaiting PMR evaluation for further discharge planning efforts. CM updated son at bedside and updated patient who
shook his head and greeted this CM. CM will continue to follow clinical progress.
PLAN: Pending PMR evaluation.
--- NOTE | 2025-01-07 12:06 | W.PN.HOSP.TC ---
Today's Communication/Plan
-
Monitor vitals
See plan
Continue with tube feeds, pur�ed diet only with speech
VSE Friday
Discussed with son
CPAP while sleeping
Assessment / Plan
Assessment / Plan
Brain MRI
There are numerous scattered foci of abnormal diffusion-weighted signal compatible with acute to subacute infarction within both cerebral hemispheres, with involvement of the frontal, parietal, and occipital lobes. Distribution appears to be in the
vascular territory of the middle cerebral arteries and posterior cerebral arteries bilaterally. A few small foci of acute to subacute infarct involving the cerebellar hemispheres, slightly greater on the left compared to the right.
No evidence for associated hemorrhage or mass effect.
CTA h&n
Bilateral cervical carotid calcified plaque formation, as described. Right ICA estimated luminal diameter reduction of 50%. No dissection or occlusion.
No hemodynamically significant stenosis involving the left common or internal carotid artery. No [place] aneurysm or stenosis. No cerebral artery significant plaque, stenosis, thrombus, or occlusion.
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
- MRI brain showing numerous scattered abnormal diffusion weighted signal on bilateral hemisphere
- CTA head and neck did not show any critical stenosis
- Neurology following and help appreciated. Patient will be likely transition to DOAC's based on cardio/neurology opinion
- Cardiology evaluation requested for possible undiagnosed A-fib. Currently per cardiology there is no indication for anticoagulation as no A-fib is seen. They are considering possible Holter monitor followed by Linq if needed. GABINO is currently
on hold due to patient's status. Per cardiology evaluation appears more like PAC. Notified cardiology for Holter monitor prior to discharge.
- Repeat CT head showed evolving stroke. No signs of hemorrhagic conversion
- Started on baby aspirin through [employer]. Discussed with son, will continue to evaluate need for PEG tube. Improving slowly with speech therapy. Fees study noted. Still high risk for aspiration. Discussed with speech therapy and plan for VSE
Friday. Started on pur�ed diet with thick liquids per speech recommendation only when speech is present. Currently main feeding is through [employer]obb[employer]. Continue with tube feed.
family requested to speak to neurology again if patient mental status do not improve before they make their decision.
speech following. Speech request ENT follow-up. Per ENT no anatomical issue.
Periods of apnea
Could have history of undiagnosed sleep apnea
Currently on CPAP
Pulmonary following, will need sleep study outpatient. On discharge will need nocturnal O2
Acute metabolic encephalopathy - Ongoing
-Patient remains with decreased responsiveness, waking up on physical touch at times
-No clear signs of seizures. Ceribell monitoring was negative for seizure
-Continue supportive care
-Lower extremity venous Doppler negative for clot
Status post left TKA
-Evaluated by orthopedic surgeon, no issues with surgical site
-Patient will require rehab for TKA/stroke
Essential hypertension - Uncontrolled
- Out of permissive hypertension window at this stage
- Switch to Toprol through tube
- As needed hydralazine for systolic blood pressure more than 160
Neuropathy
-Hold gabapentin for now
Constipation
Dulcolax suppository, Colace and senna
Normocytic anemia
- Monitor for any postop/surgical blood loss anemia
DVT PPX - Lovenox
Full code
Patient remains at risk of further complication due to decreased wakefulness and weakness
Patient son at bedside and care plan updated
PT/OT, PMNR evaluation
General: No Apparent Distress and Comfortable
HEENT: Negative Oxygen
Respiratory: Clear to Auscultation
Cardiac: Regular Rhythm and S1/S2; Negative Murmur or Rub
Neuro: Awake; Negative Alert or Oriented
Psych: Calm
I spent a total of 52 minutes with the patient or on the floor. More than 50% of this time involved counseling and coordination of care.
Anticipated Discharge: > 48 hours
Subjective/Interval History
-
Date of Service: January 07, 2025
denies nausea
Objective Data
-
Labs:
Laboratory Results
01/07/25
07:31
WBC 10.4
Hgb 11.7 L
Hct 35.2 L
Plt Count 330 D
Sodium 140
Potassium 4.1
Chloride 110 H
Carbon Dioxide 24
BUN 48 H
Creatinine 0.8
Glucose 147 H
Calcium 9.2
Vital Signs:
Vital Signs
Temp Pulse Resp BP Pulse Ox
99.4 F 84 18 129/68 91
01/07/25 11:00 01/07/25 11:00 01/07/25 11:00 01/07/25 11:00 01/07/25 11:00
I&O
01/06/25 01/07/25 01/08/25
06:59 06:59 06:59
Intake Total 800 / 800 500 / 500
Balance 800 / 800 500 / 500
[2025-01-07 12:14] LABS: Glucose - Point of Care 124 mg/dl (70-99)
[2025-01-07] MEDS: LOVENOX 40 MG SC (17:01)
[2025-01-07 18:22] LABS: Glucose - Point of Care 133 mg/dl (70-99)
[2025-01-07] MEDS: REMOVE LIDOCAINE PATCH 1 PATCH REMOVE (20:14)
[2025-01-07] MEDS: SENNA SYRUP 8.8 MG TUBE (20:16)
[2025-01-07] MEDS: PEPCID 20 MG TUBE (22:13)
[2025-01-07 23:56] LABS: Glucose - Point of Care 119 mg/dl (70-99)
[2025-01-08] VITALS (10 sets, daily range): BP systolic 117–135; BP diastolic 71–95; PULSE 95–96; BMI 29.9
[2025-01-08 06:26] LABS: Hematocrit 36.2 % (39.0-52.0); Hemoglobin 12.2 g/dL (13.0-18.0); Mean Corp Hgb Conc. 33.7 g/dL (33.0-37.0); Mean Corpuscular Volume 95.5 fL (80.0-94.0); Nucleated Red Blood Cells % 0 % (-); Platelet Count 346 10^3/uL (130-400); Red Cell Dist. Width 13.5 % (11.5-14.5)
[2025-01-08 06:28] LABS: Glucose - Point of Care 135 mg/dl (70-99)
[2025-01-08 06:49] LABS: Blood Urea Nitrogen 45 mg/dl (9-20); Calcium 9.4 mg/dl (8.4-10.2); Carbon Dioxide 22 mmol/L (22-30); Chloride 114 mmol/L (98-107); Estimated Creatinine Clearance 99 ml/min; Glucose 132 mg/dl (70-99); Potassium 3.8 mmol/L (3.5-5.1); Sodium 145 mmol/L (135-145); eGFR > 60.00
[2025-01-08] MEDS: LIDOCAINE 4% PATCH 1 PATCH TOPICAL (08:18)
[2025-01-08] MEDS: COLACE LIQUID 100 MG TUBE ×2 (08:18→20:52)
[2025-01-08] MEDS: SENNA SYRUP 8.8 MG TUBE ×2 (08:18→20:52)
[2025-01-08] MEDS: LOPRESSOR TUBE ×2 (08:19→20:53)
[2025-01-08] MEDS: DESENEX/MITRAZOL/ZEASORB 1 APPLIC TOPICAL ×2 (08:19→20:53)
[2025-01-08] MEDS: LOW STRENGTH ASPIRIN 81 MG TUBE (08:19)
--- NOTE | 2025-01-08 10:21 | W.PN.UPDATE ---
Update Note
Progress Note Update
Mr. Viera is just over 1 week s/p left TKA with CVA experienced immediately post operatively.
On exam this morning, he is more alert than in previous encounters and was able to answer a few simple questions.
His son was present and states the rehab consult took place yesterday and they are hopeful for transfer to [facility] if accepted.
They have continued with feeding tube and he is scheduled for feeding test on Friday.
Continue with PT as able. Passive ROM of knee to tolerance.
Will keep aquacel dressing in place for now.
Will continue to follow along.
--- NOTE | 2025-01-08 12:25 | W.PN.HOSP.TC ---
Today's Communication/Plan
-
Monitor vital signs see plan
Continue with tube feeds
Plan for VSE Friday
Discussed with son
Monitor leukocytosis
Assessment / Plan
Assessment / Plan
Brain MRI
There are numerous scattered foci of abnormal diffusion-weighted signal compatible with acute to subacute infarction within both cerebral hemispheres, with involvement of the frontal, parietal, and occipital lobes. Distribution appears to be in the
vascular territory of the middle cerebral arteries and posterior cerebral arteries bilaterally. A few small foci of acute to subacute infarct involving the cerebellar hemispheres, slightly greater on the left compared to the right.
No evidence for associated hemorrhage or mass effect.
CTA h&n
Bilateral cervical carotid calcified plaque formation, as described. Right ICA estimated luminal diameter reduction of 50%. No dissection or occlusion.
No hemodynamically significant stenosis involving the left common or internal carotid artery. No [place] aneurysm or stenosis. No cerebral artery significant plaque, stenosis, thrombus, or occlusion.
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
- MRI brain showing numerous scattered abnormal diffusion weighted signal on bilateral hemisphere
- CTA head and neck did not show any critical stenosis
- Neurology following and help appreciated. Patient will be likely transition to DOAC's based on cardio/neurology opinion
- Cardiology evaluation requested for possible undiagnosed A-fib. Currently per cardiology there is no indication for anticoagulation as no A-fib is seen. They are considering possible Holter monitor followed by Linq if needed. GABINO is currently
on hold due to patient's status. Per cardiology evaluation appears more like PAC. Notified cardiology for Holter monitor prior to discharge.
- Repeat CT head showed evolving stroke. No signs of hemorrhagic conversion
- Started on baby aspirin through [employer]. Discussed with son, will continue to evaluate need for PEG tube. Improving slowly with speech therapy. Fees study noted. Still high risk for aspiration. Discussed with speech therapy and plan for VSE
Friday. Started on pur�ed diet with thick liquids per speech recommendation only when speech is present. Currently main feeding is through [employer]. Continue with tube feed.
family requested to speak to neurology again if patient mental status do not improve before they make their decision.
speech following. Speech request ENT follow-up. Per ENT no anatomical issue.
Periods of apnea
Could have history of undiagnosed sleep apnea
Currently on CPAP
Pulmonary following, will need sleep study outpatient. On discharge will need nocturnal O2
Acute metabolic encephalopathy - Ongoing
-Patient remains with decreased responsiveness, waking up on physical touch at times
-No clear signs of seizures. Ceribell monitoring was negative for seizure
-Continue supportive care
-Lower extremity venous Doppler negative for clot
Status post left TKA
-Evaluated by orthopedic surgeon, no issues with surgical site
-Patient will require rehab for TKA/stroke
Essential hypertension - Uncontrolled
- Out of permissive hypertension window at this stage
- cw Toprol through tube
- As needed hydralazine for systolic blood pressure more than 160
Neuropathy
-Hold gabapentin for now
Constipation
Dulcolax suppository, Colace and senna
Normocytic anemia
- Monitor for any postop/surgical blood loss anemia
DVT PPX - Lovenox
Full code
Patient remains at risk of further complication due to decreased wakefulness and weakness
Patient son at bedside and care plan updated
PT/OT, PMNR evaluation. Plan for eventual acute rehab
General: No Apparent Distress and Comfortable
HEENT: Negative Oxygen
Respiratory: Clear to Auscultation
Cardiac: Regular Rhythm and S1/S2; Negative Murmur or Rub
Neuro: Awake; Negative Alert or Oriented
Psych: Calm
I spent a total of 52 minutes with the patient or on the floor. More than 50% of this time involved counseling and coordination of care.
Anticipated Discharge: > 48 hours
Subjective/Interval History
-
Date of Service: January 08, 2025
denies pain
Objective Data
-
Labs:
Laboratory Results
01/08/25
05:30
WBC 12.3 H
Hgb 12.2 L
Hct 36.2 L
Plt Count 346
Sodium 145
Potassium 3.8
Chloride 114 H
Carbon Dioxide 22
BUN 45 H
Creatinine 0.7
Glucose 132 H
Calcium 9.4
Vital Signs:
Vital Signs
Temp Pulse Resp BP Pulse Ox
98.6 F 95 16 117/71 92
01/08/25 11:00 01/08/25 11:00 01/08/25 11:00 01/08/25 11:00 01/08/25 11:00
I&O
01/07/25 01/08/25 01/09/25
06:59 06:59 06:59
Intake Total 500 / 500
Balance 500 / 500
[2025-01-08 12:49] LABS: Glucose - Point of Care 142 mg/dl (70-99)
[2025-01-08 17:11] LABS: Glucose - Point of Care 132 mg/dl (70-99)
[2025-01-08] MEDS: LOVENOX 40 MG SC (18:08)
[2025-01-08] MEDS: PEPCID 20 MG TUBE (20:52)
[2025-01-08] MEDS: REMOVE LIDOCAINE PATCH 1 PATCH REMOVE (20:53)
[2025-01-08 23:21] LABS: Glucose - Point of Care 117 mg/dl (70-99)
[2025-01-09] VITALS (9 sets, daily range): BP systolic 92–129; BP diastolic 59–78; PULSE 94; O2SAT 90
[2025-01-09 05:58] LABS: Glucose - Point of Care 143 mg/dl (70-99)
[2025-01-09 06:33] LABS: Hematocrit 37.8 % (39.0-52.0); Hemoglobin 12.0 g/dL (13.0-18.0); Mean Corp Hgb Conc. 31.7 g/dL (33.0-37.0); Mean Corpuscular Volume 99.2 fL (80.0-94.0); Nucleated Red Blood Cells % 0 % (-); Platelet Count 361 10^3/uL (130-400); Red Cell Dist. Width 14.0 % (11.5-14.5)
[2025-01-09 07:19] LABS: Blood Urea Nitrogen 46 mg/dl (9-20); Calcium 9.6 mg/dl (8.4-10.2); Carbon Dioxide 24 mmol/L (22-30); Chloride 115 mmol/L (98-107); Estimated Creatinine Clearance 77 ml/min; Glucose 140 mg/dl (70-99); Potassium 3.8 mmol/L (3.5-5.1); Sodium 145 mmol/L (135-145); eGFR > 60.00
[2025-01-09] MEDS: LOPRESSOR TUBE ×2 (08:19→20:50)
[2025-01-09] MEDS: LOW STRENGTH ASPIRIN 81 MG TUBE (08:28)
[2025-01-09] MEDS: COLACE LIQUID 100 MG TUBE ×2 (08:28→20:55)
[2025-01-09] MEDS: DESENEX/MITRAZOL/ZEASORB 1 APPLIC TOPICAL ×2 (08:28→20:55)
[2025-01-09] MEDS: SENNA SYRUP 8.8 MG TUBE ×2 (08:28→20:54)
[2025-01-09] MEDS: LIDOCAINE 4% PATCH 1 PATCH TOPICAL (08:28)
--- NOTE | 2025-01-09 11:26 | W.PN.UPDATE ---
Update Note
Progress Note Update
Mr. Viera is just over 1 week s/p left TKA (12/29/24 Dr. Nicholas) with CVA experienced immediately post operatively.
On exam this morning, he is remains more alert than in previous encounters and was able to answer a few simple questions.
His son was present and states he was able to eat pureed foods yesterday.
They have continued with feeding tube and he is scheduled for feeding test on Friday.
Continue with PT as able. Passive ROM of knee to tolerance.
Dressing removed from left knee. Incision is c/d/i. No erythema or drainage. Compression stocking replaced. May do basic hygiene with gentle soap and water if needed.
Will continue to follow along.
--- NOTE | 2025-01-09 11:57 | W.PN.HOSP.TC ---
Today's Communication/Plan
-
Monitor vital signs see plan
Check chest x-ray
Monitor leukocytosis
VSE tomorrow
Assessment / Plan
Assessment / Plan
Brain MRI
There are numerous scattered foci of abnormal diffusion-weighted signal compatible with acute to subacute infarction within both cerebral hemispheres, with involvement of the frontal, parietal, and occipital lobes. Distribution appears to be in the
vascular territory of the middle cerebral arteries and posterior cerebral arteries bilaterally. A few small foci of acute to subacute infarct involving the cerebellar hemispheres, slightly greater on the left compared to the right.
No evidence for associated hemorrhage or mass effect.
CTA h&n
Bilateral cervical carotid calcified plaque formation, as described. Right ICA estimated luminal diameter reduction of 50%. No dissection or occlusion.
No hemodynamically significant stenosis involving the left common or internal carotid artery. No [place] aneurysm or stenosis. No cerebral artery significant plaque, stenosis, thrombus, or occlusion.
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
- MRI brain showing numerous scattered abnormal diffusion weighted signal on bilateral hemisphere
- CTA head and neck did not show any critical stenosis
- Neurology following and help appreciated. Patient will be likely transition to DOAC's based on cardio/neurology opinion
- Cardiology evaluation requested for possible undiagnosed A-fib. Currently per cardiology there is no indication for anticoagulation as no A-fib is seen. They are considering possible Holter monitor followed by Linq if needed. GABINO is currently
on hold due to patient's status. Per cardiology evaluation appears more like PAC. Notified cardiology for Holter monitor prior to discharge.
- Repeat CT head showed evolving stroke. No signs of hemorrhagic conversion
- Started on baby aspirin through [employer]. Discussed with son, will continue to evaluate need for PEG tube. Improving slowly with speech therapy. Fees study noted. Still high risk for aspiration. Discussed with speech therapy and plan for VSE
Friday. Started on pur�ed diet with thick liquids per speech recommendation only when speech is present. Currently main feeding is through [employer]. Continue with tube feed. Family is aware that Dobbhoff cannot stay in for a long and they will
need to decide after VSE regarding PEG tube
family requested to speak to neurology again if patient mental status do not improve before they make their decision. will likely need reevaluation if they go conservative route if patient fails VSE
speech following. Speech request ENT follow-up. Per ENT no anatomical issue.
Periods of apnea
Could have history of undiagnosed sleep apnea
Currently on CPAP
Pulmonary following, will need sleep study outpatient. On discharge will need nocturnal O2
leukocytosis, check CXR
Acute metabolic encephalopathy - Ongoing
-Patient remains with decreased responsiveness, waking up on physical touch at times
-No clear signs of seizures. Ceribell monitoring was negative for seizure
-Continue supportive care
-Lower extremity venous Doppler negative for clot
Status post left TKA
-Evaluated by orthopedic surgeon, no issues with surgical site
-Patient will require rehab for TKA/stroke
Essential hypertension - Uncontrolled
- Out of permissive hypertension window at this stage
- cw Toprol through tube
- As needed hydralazine for systolic blood pressure more than 160
Neuropathy
-Hold gabapentin for now
Constipation
Dulcolax suppository, Colace and senna
Normocytic anemia
- Monitor for any postop/surgical blood loss anemia
DVT PPX - Lovenox
Full code
Patient remains at risk of further complication due to decreased wakefulness and weakness. Family aware
Patient son at bedside and care plan updated
PT/OT, PMNR evaluation. Plan for eventual acute rehab
General: No Apparent Distress and Comfortable
HEENT: oxygen,+dobhoff
Respiratory: Clear to Auscultation
Cardiac: Regular Rhythm and S1/S2; Negative Murmur or Rub
Neuro: Awake; Negative Alert or Oriented
Psych: Calm
I spent a total of 52 minutes with the patient or on the floor. More than 50% of this time involved counseling and coordination of care.
Anticipated Discharge: > 48 hours
Subjective/Interval History
-
Date of Service: January 09, 2025
denies pain
Objective Data
-
Labs:
Laboratory Results
01/09/25
05:34
WBC 14.5 H
Hgb 12.0 L
Hct 37.8 L
Plt Count 361
Sodium 145
Potassium 3.8
Chloride 115 H
Carbon Dioxide 24
BUN 46 H
Creatinine 0.8
Glucose 140 H
Calcium 9.6
Vital Signs:
Vital Signs
Temp Pulse Resp BP Pulse Ox
99.4 F 90 16 108/59 91
01/09/25 11:05 01/09/25 11:05 01/09/25 11:05 01/09/25 11:05 01/09/25 11:05
I&O
01/08/25 01/09/25 01/10/25
06:59 06:59 06:59
Intake Total 900 / 900
Balance 900 / 900
[2025-01-09 13:04] LABS: Glucose - Point of Care 122 mg/dl (70-99)
[2025-01-09 17:49] LABS: Glucose - Point of Care 139 mg/dl (70-99)
[2025-01-09] MEDS: LOVENOX 40 MG SC (17:53)
[2025-01-09] MEDS: REMOVE LIDOCAINE PATCH 1 PATCH REMOVE (20:50)
[2025-01-09] MEDS: TYLENOL ORAL SOLUTION 650 MG TUBE (20:55)
[2025-01-09] MEDS: PEPCID 20 MG TUBE (20:55)
[2025-01-09 23:46] LABS: Glucose - Point of Care 140 mg/dl (70-99)
[2025-01-10] VITALS (8 sets, daily range): BP systolic 111–137; BP diastolic 68–83; PULSE 92–94; O2SAT 91; BMI 29.4
--- NOTE | 2025-01-10 01:40 | PTCARENOTE ---
Addendum entered by Haven Lang RN 01/10/25 02:33:
0200: per provider, Past[facility]. the placement of the dobhoff is not correct and should be pulled. Tube removed by RN.
Original Note:
Late note due to patient care:
9930: pt pulled the dobhoff tube and partially removed it. Tube was reading 30 at the nare. Provider was made aware. RN instructed to advance the tube to 73 to be followed by a confirmatory XR. Tube feeds and medications held during this time.
--- NOTE | 2025-01-10 05:15 | W.PN.UPDATE ---
Update Note
Progress Note Update
Patient is just over 1 week s/p left TKA December 25 ([facility]) with evolving CVA immediately post op. On exam this morning, he is remains more alert than in previous encounters and was able to answer a few simple questions. continued with feeding
tube and he is scheduled for feeding test today. Continue with PT/OT as able. Passive ROM of knee to tolerance to prevent contracture. Incision CDI. No erythema or drainage. Expected swelling. DNVI LLE. Compression stocking in place. Gentle
hygiene around the incision. Will continue to follow along while admitted. Appreciate CM with dispo assistance.
[2025-01-10 06:32] LABS: Glucose - Point of Care 120 mg/dl (70-99)
[2025-01-10 07:02] LABS: Hematocrit 39.7 % (39.0-52.0); Hemoglobin 12.7 g/dL (13.0-18.0); Mean Corp Hgb Conc. 32.0 g/dL (33.0-37.0); Mean Corpuscular Volume 101.3 fL (80.0-94.0); Nucleated Red Blood Cells % 0 % (-); Platelet Count 383 10^3/uL (130-400); Red Cell Dist. Width 14.2 % (11.5-14.5)
[2025-01-10 07:20] LABS: Blood Urea Nitrogen 49 mg/dl (9-20); Calcium 9.6 mg/dl (8.4-10.2); Carbon Dioxide 23 mmol/L (22-30); Chloride 117 mmol/L (98-107); Estimated Creatinine Clearance 88 ml/min; Glucose 120 mg/dl (70-99); Potassium 3.9 mmol/L (3.5-5.1); Sodium 147 mmol/L (135-145); eGFR > 60.00
[2025-01-10] MEDS: COLACE LIQUID TUBE ×2 (09:10→19:55)
[2025-01-10] MEDS: DESENEX/MITRAZOL/ZEASORB 1 APPLIC TOPICAL ×2 (09:11→19:56)
[2025-01-10] MEDS: LOPRESSOR TUBE ×2 (09:11→19:55)
[2025-01-10] MEDS: LIDOCAINE 4% PATCH 1 PATCH TOPICAL (09:12)
[2025-01-10] MEDS: LOW STRENGTH ASPIRIN TUBE (09:13)
[2025-01-10] MEDS: SENNA SYRUP TUBE ×2 (09:13→19:55)
--- NOTE | 2025-01-10 12:50 | PTOTSP ---
Speech Language Pathology
VIDEOFLUOROSCOPIC SWALLOWING EXAMINATION (VSE) completed. Mod oral and mod-severe pharyngeal dysphagia noted. Penetration and/or aspiration noted with thin liquids, mildly thick liquids at times, and following puree. Trace to mild pharyngeal
residue noted. Etiology of dysphagia is acute CVA. Prognosis for swallowing is guarded given overall debilitation and lack of progress since FEES completed.
Recommend:
(1) NPO
(2) Non-oral meds
(3) Allow ice chips post oral care given supervision per Aspiration Risk Hydration Protocol (ARHP)
(4) GOC discussion
(5) BEEF [employer]GER to continue to follow
--- NOTE | 2025-01-10 13:07 | W.PN.HOSP.TC ---
Today's Communication/Plan
-
see A/P
Assessment / Plan
Assessment / Plan
Brain MRI
There are numerous scattered foci of abnormal diffusion-weighted signal compatible with acute to subacute infarction within both cerebral hemispheres, with involvement of the frontal, parietal, and occipital lobes. Distribution appears to be in the
vascular territory of the middle cerebral arteries and posterior cerebral arteries bilaterally. A few small foci of acute to subacute infarct involving the cerebellar hemispheres, slightly greater on the left compared to the right.
No evidence for associated hemorrhage or mass effect.
CTA H/N
Bilateral cervical carotid calcified plaque formation, as described. Right ICA estimated luminal diameter reduction of 50%. No dissection or occlusion.
No hemodynamically significant stenosis involving the left common or internal carotid artery. No [place] aneurysm or stenosis. No cerebral artery significant plaque, stenosis, thrombus, or occlusion.
A/P:
# Acute CVA, presumed cardioembolic in nature\\
# Clinical deterioration
MRI brain showing numerous scattered abnormal diffusion weighted signal on bilateral hemisphere
CTA head and neck did not show any critical stenosis
Lower extremity venous Doppler negative for clot
Neurology and cardiology consulted. Defer OAC to specialists.
Card [facility] toll test worker at the time of DC. No GABINO due to patient's clinical status.
Repeat CT head showed evolving stroke. No signs of hemorrhagic conversion
Cont baby aspirin through [employer].
Added Plavix per neuro (d/w Dr Sesay 01/10)
pt failed VSE 01/10
GOC discussion initiated. Family to decide to proceed with PEG vs transition to hospice (reasonable to consider transitioning to hospice with current severe clinical deterioration)
For now while NPO, start gentle IVF
# Periods of apnea
Could have history of undiagnosed sleep apnea
Currently on CPAP
Pulmonary following, will need sleep study outpatient. On discharge will need nocturnal O2
CXR No acute disease of the chest.
# Acute metabolic encephalopathy - Ongoing
Patient remains with decreased responsiveness, waking up on physical touch at times
No clear signs of seizures. Ceribell monitoring was negative for seizure
Continue supportive care
Lower extremity venous Doppler negative for clot
# Status post left TKA
Evaluated by orthopedic surgeon, no issues with surgical site
Patient will require rehab for TKA/stroke
# Essential hypertension , resolved
cont Toprol through tube
As needed hydralazine for systolic blood pressure more than 160
# Neuropathy
Hold gabapentin for now
# Constipation
Dulcolax suppository, Colace and senna
# Normocytic anemia
Monitor for any postop/surgical blood loss anemia
DVT PPX - Lovenox SQ
Full code
Dispo: eventual [facility] vs home hospice
DW son and at bedside.
GOC discussion started. Explained the pro and con of PEG vs hospice. Extensive discussion and answered all answered. Provided emotional support.
DW RN
Anticipated Discharge: 24 - 48 hours
Subjective/Interval History
-
Date of Service: January 10, 2025
Objective Data
-
Labs:
Laboratory Results
01/10/25
06:35
WBC 13.8 H
Hgb 12.7 L
Hct 39.7
Plt Count 383
Sodium 147 H
Potassium 3.9
Chloride 117 H
Carbon Dioxide 23
BUN 49 H
Creatinine 0.7
Glucose 120 H
Calcium 9.6
Vital Signs:
Vital Signs
Temp Pulse Resp BP Pulse Ox
37.0 C 89 20 111/78 91
01/10/25 12:00 01/10/25 12:00 01/10/25 12:00 01/10/25 12:00 01/10/25 12:00
I&O
01/09/25 01/10/25 01/11/25
06:59 06:59 06:59
Intake Total 1860 / 1860 960 / 960
Output Total 525 / 525
Balance 1859 / 1859 435 / 435
Review of Systems
-
Unable to obtain full review of systems at this time due to: Acuity
Physical Exam
-
General: No Apparent Distress, Comfortable and Appears Chronically Ill
HEENT: Oxygen (4L NC)
Respiratory: Clear to Auscultation and Non Labored Respirations; Negative Accessory Resp Muscle Use
Cardiac: Regular Rhythm and S1/S2; Negative Murmur or Rub
Neuro: Awake
Psych: Calm
Data Reviewed
-
Labs: Labs Reviewed by me
--- NOTE | 2025-01-10 14:19 | CM ---
CM following re: discharge planning.
Reviewed pt' chart, met with pt and pt's son Nathan at bedside.
PT, OT, ST. PM&R evaluations noted - acute rehab level of care recommended.
[facility]. Pt's son stated he lives in [place], pt lives in [place] and a preferred acute rehab will be [facility].
CM spoke to [facility] acute [facility] aide/scheduler Bernadette and she confirmed that pt will be accepted for admission to [facility] rehab when medically stable.
D/C plan: [facility] when medically stable.
CM will follow to assist pt with discharge to [facility].
[2025-01-10] MEDS: NSS 1000 IV (15:19)
[2025-01-10] MEDS: LOVENOX 40 MG SC (17:53)
[2025-01-10 19:06] LABS: Glucose - Point of Care 110 mg/dl (70-99)
[2025-01-10] MEDS: REMOVE LIDOCAINE PATCH 1 PATCH REMOVE (19:55)
[2025-01-10] MEDS: PEPCID TUBE (19:56)
[2025-01-11] VITALS (8 sets, daily range): BP systolic 110–152; BP diastolic 63–87; PULSE 91–92; O2SAT 99
[2025-01-11 00:11] LABS: Glucose - Point of Care 121 mg/dl (70-99)
--- NOTE | 2025-01-11 04:27 | PTCARENOTE ---
Went to perform 0400 turn. Pt bed saturated with urine, second time this shift. Complete bed change and hygiene performed. Applied a condom cath size 25 to prevent skin breakdown. Pt's TEDS were saturated with urine, removed and will re-apply at
0730 per order. Pt turned to R side w/ wedge. Care ongoing.
[2025-01-11] MEDS: NSS 1000 IV (06:12)
--- NOTE | 2025-01-11 08:02 | W.PN.UPDATE ---
Update Note
Progress Note Update
79M s/p left TKA (12/29/24 Dr. Nicholas) with CVA experienced immediately post operatively.
Improving alertness over time
s/p barium swallow test yesterday with discussion of PEG
Continue with PT as able. Passive ROM of knee to tolerance.
Dressing removed from left knee. Incision is c/d/i. No erythema or drainage. Compression stocking replaced. May do basic hygiene with gentle soap and water if needed.
Will continue to follow along.
[2025-01-11] MEDS: COLACE LIQUID TUBE ×2 (08:26→19:29)
[2025-01-11] MEDS: LOPRESSOR TUBE ×2 (08:26→19:29)
[2025-01-11] MEDS: LOW STRENGTH ASPIRIN TUBE (08:26)
[2025-01-11] MEDS: SENNA SYRUP TUBE ×2 (08:27→19:30)
[2025-01-11] MEDS: LIDOCAINE 4% PATCH 1 PATCH TOPICAL (08:27)
[2025-01-11] MEDS: DESENEX/MITRAZOL/ZEASORB 1 APPLIC TOPICAL ×2 (08:28→21:15)
[2025-01-11 10:10] LABS: Hematocrit 41.0 % (39.0-52.0); Hemoglobin 12.8 g/dL (13.0-18.0); Mean Corp Hgb Conc. 31.2 g/dL (33.0-37.0); Mean Corpuscular Volume 103.3 fL (80.0-94.0); Platelet Count 414 10^3/uL (130-400); Red Cell Dist. Width 14.4 % (11.5-14.5)
[2025-01-11 11:14] LABS: Blood Urea Nitrogen 59 mg/dl (9-20); Calcium 9.1 mg/dl (8.4-10.2); Carbon Dioxide 21 mmol/L (22-30); Chloride 124 mmol/L (98-107); Estimated Creatinine Clearance 69 ml/min; Glucose 115 mg/dl (70-99); Potassium 3.9 mmol/L (3.5-5.1); Sodium 155 mmol/L (135-145); eGFR > 60.00
--- NOTE | 2025-01-11 11:41 | CM ---
Addendum entered by Rajni Mcintosh RN 01/11/25 13:08:
CM met with patient's family who confirmed choice of Hospice. CM updated transitional care liaison. CM placed referral via [facility] to Hospice.
CM will remain available as needed.
Original Note:
CM reviewed medical records. Hospitalist will continue with [facility] conversation with family and update this CM. CM will remain available as needed.
[2025-01-11] MEDS: D5W 1000 IV ×2 (11:58→21:14)
--- NOTE | 2025-01-11 12:05 | W.PN.HOSP.TC ---
Today's Communication/Plan
-
see A/P
Assessment / Plan
Assessment / Plan
Brain MRI
There are numerous scattered foci of abnormal diffusion-weighted signal compatible with acute to subacute infarction within both cerebral hemispheres, with involvement of the frontal, parietal, and occipital lobes. Distribution appears to be in the
vascular territory of the middle cerebral arteries and posterior cerebral arteries bilaterally. A few small foci of acute to subacute infarct involving the cerebellar hemispheres, slightly greater on the left compared to the right.
No evidence for associated hemorrhage or mass effect.
CTA H/N
Bilateral cervical carotid calcified plaque formation, as described. Right ICA estimated luminal diameter reduction of 50%. No dissection or occlusion.
No hemodynamically significant stenosis involving the left common or internal carotid artery. No [place] aneurysm or stenosis. No cerebral artery significant plaque, stenosis, thrombus, or occlusion.
A/P:
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
# Clinical deterioration/deconditioning
MRI brain showing numerous scattered abnormal diffusion weighted signal on bilateral hemisphere
CTA head and neck did not show any critical stenosis
Lower extremity venous Doppler negative for clot
Neurology and cardiology consulted. Defer OAC to specialists.
Card [facility] monitor technician at the time of DC. No GABINO due to patient's clinical status.
Repeat CT head showed evolving stroke. No signs of hemorrhagic conversion
Cont baby aspirin through [facility]. Added Plavix per neuro (d/w Dr Sesay 01/10)
pt failed VSE 01/10
GOC discussion initiated. Family has decided to proceed with hospice care.
For now while NPO, cont IVF
# Hypernatremia due to dehydration
Changed IVF NSS to D5 water
Monitor sodium level
# Periods of apnea
Could have history of undiagnosed sleep apnea
Currently on CPAP
Pulmonary following, will need sleep study outpatient. On discharge will need nocturnal O2
CXR No acute disease of the chest.
# Acute metabolic encephalopathy - Ongoing
Patient remains with decreased responsiveness, waking up on physical touch at times
No clear signs of seizures. Ceribell monitoring was negative for seizure
Continue supportive care
Lower extremity venous Doppler negative for clot
# Status post left TKA
Evaluated by orthopedic surgeon, no issues with surgical site
Patient will require rehab for TKA/stroke
# Essential hypertension , resolved
cont Toprol through tube
As needed hydralazine for systolic blood pressure more than 160
# Neuropathy
Hold gabapentin for now
# Constipation
Dulcolax suppository, Colace and senna
# Normocytic anemia
Monitor for any postop/surgical blood loss anemia
DVT PPX - Lovenox SQ
Full code
Dispo: eventual [facility] vs hospice
[facility] discussed with several family members (, son and MARIO) in family meeting room.
I explained the current siltation (failed VSE) and our available options- PEG vs hospice. We talked about the risk and benefit of PEG, and we talked about the philosophy of hospice and what it involves.
Family have elected to proceed with hospice. Provided emotional support to family.
Hospice consult placed.
RN, CM and hospice spiritual care coordinator updated of [facility] discussion
Anticipated Discharge: 24 - 48 hours
Subjective/Interval History
-
Date of Service: January 11, 2025
Objective Data
-
Labs:
Laboratory Results
01/11/25
09:46
WBC 8.7
Hgb 12.8 L
Hct 41.0
Plt Count 414 H
Sodium 155 H D
Potassium 3.9
Chloride 124 H
Carbon Dioxide 21 L
BUN 59 H
Creatinine 0.9
Glucose 115 H
Calcium 9.1
Vital Signs:
Vital Signs
Temp Pulse Resp BP Pulse Ox
37.3 C 99 16 152/87 99
01/11/25 11:35 01/11/25 11:35 01/11/25 11:35 01/11/25 11:35 01/11/25 11:35
I&O
01/10/25 01/11/25 01/12/25
06:59 06:59 06:59
Intake Total 960 / 960 960 / 960
Output Total 525 / 525
Balance 435 / 435 960 / 960
Review of Systems
-
Unable to obtain full review of systems at this time due to: Acuity
Physical Exam
-
General: No Apparent Distress, Comfortable and Appears Chronically Ill
HEENT: Oxygen (4L NC)
Respiratory: Clear to Auscultation and Non Labored Respirations; Negative Accessory Resp Muscle Use
Cardiac: Regular Rhythm and S1/S2; Negative Murmur or Rub
Neuro: Awake
Psych: Calm
Data Reviewed
-
Labs: Labs Reviewed by me, Discussed with Nurse and Discussed with Family
--- NOTE | 2025-01-11 12:37 | PTOTSP ---
HUB ASSOCIATE Dysphagia Education:
Pt's family present at bedside. Discussed results and recommendations following FEES on 01/06 and VSE 01/10. Pt's family with many questions. Detailed results of FEES and VSE with similar performance and recommendations. Also discussed guarded
prognosis for swallowing given CVAs with subsequent debilitation. Family deciding between hospice/comfort and PEG tube. Family asking about 'what happens next.' Education provided re: comfort approach/quality of life versus life prolonging goals. If
goals are restorative, recommend long-term source of nutrition with intensive dysphagia rehabilitation, although pt's deconditioning likely a barrier currently. If goals are comfort based, recommend oral diet per pt/family wishes, however discussed
high likelihood of aspiration and subsequent development of aspiration pneumonia. Discussed sequelae of aspiration pneumonia including respiratory decomposition. Discussed ways to mitigate development of respiratory complication by reducing
bacterial load via thorough oral care and increasing physical mobility as medically feasible. Family expressed they would like to talk to MD/CM re: plans going forward. RN aware.
Impression: Pt with known moderate-severe pharyngeal dysphagia following FEES/VSE. HUB ASSOCIATE to follow pending goc.
Recommend:
(1) NPO
(2) Non-oral meds
(3) Allow ice chips post oral care given supervision per Aspiration Risk Hydration Protocol (ARHP)
(4) GOC discussion
(5) HUB ASSOCIATE to continue to follow
--- NOTE | 2025-01-11 13:36 | HOSPNOTE ---
Spoke with family and discussed hospice and the philosophy. At this time the family was just gathering information. They will let me know tomorrow about a decision. CM updated.
--- NOTE | 2025-01-11 14:19 | CM ---
CM met with family. CM provided family with alternative Hospice resources. Family had multiple questions regarding hospice care. CM provided emotional support. Family will discuss hospice options and contact this CM with questions.
[2025-01-11] MEDS: LOVENOX 40 MG SC (17:25)
[2025-01-11] MEDS: PEPCID TUBE (19:30)
[2025-01-11] MEDS: REMOVE LIDOCAINE PATCH 1 PATCH REMOVE (21:15)
[2025-01-12 03:23] VITALS: BP 114/75
[2025-01-12] MEDS: D5W 1000 IV (06:22)
[2025-01-12 07:15] VITALS: BP 127/72
[2025-01-12 07:36] LABS: Blood Urea Nitrogen 50 mg/dl (9-20); Calcium 9.3 mg/dl (8.4-10.2); Carbon Dioxide 23 mmol/L (22-30); Chloride 120 mmol/L (98-107); Estimated Creatinine Clearance 62 ml/min; Glucose 126 mg/dl (70-99); Potassium 3.4 mmol/L (3.5-5.1); Sodium 151 mmol/L (135-145); eGFR > 60.00
[2025-01-12] MEDS: LOPRESSOR TUBE ×2 (07:49→21:33)
[2025-01-12] MEDS: LOW STRENGTH ASPIRIN TUBE (07:49)
[2025-01-12] MEDS: COLACE LIQUID TUBE ×2 (07:49→21:30)
[2025-01-12] MEDS: SENNA SYRUP TUBE ×2 (07:50→21:31)
[2025-01-12] MEDS: DESENEX/MITRAZOL/ZEASORB 1 APPLIC TOPICAL ×2 (08:46→21:30)
[2025-01-12] MEDS: LIDOCAINE 4% PATCH 1 PATCH TOPICAL (08:46)
--- NOTE | 2025-01-12 08:46 | W.PN.UPDATE ---
Update Note
Progress Note Update
pt seen and examined.
Remains very week and unfortunately still very adversely affected by the postoperative CVA. He was able to communicate with me a little. I expressed my sadness about the complication he has incurred and he said 'it is what it is', so he does
have improved cognitive capacity although his voice is very weak and he looks to hvae lost a lot of weight.
Nutrition remains a concern, he is currently not receiving any TF's
Also i asked his nurse, if possible, to work with PT today to get him OOB even if it required a lift to get into a chair. Previously this seemed to result in some boost of energy for him.
no specific rec's for the TKA the incision for which is healing well.
--- NOTE | 2025-01-12 11:31 | W.PN.HOSP.TC ---
Addendum entered and electronically signed by Sera Escobar MD 01/12/25 14:50:
Returned to discuss care with family per request.
Discussed with , 2 sons, and pt's MADISON in person in family room.
They confirmed their wish to proceed with hospice and is looking at a hospice facility closer to home.
Per RN and family, pt was looking uncomfortable and complained of pain.
Informed family that we can start adding IV morphine and Ativan PRN for pain and anxiety control, respectively.
Discussed about stopping current IVF and the possibility of transitioning to inpatient hospice, and family states that they would like to think about these.
Code status changed to DNR DNI.
RN updated
Original Note:
Today's Communication/Plan
-
see A/P
Assessment / Plan
Assessment / Plan
Brain MRI
There are numerous scattered foci of abnormal diffusion-weighted signal compatible with acute to subacute infarction within both cerebral hemispheres, with involvement of the frontal, parietal, and occipital lobes. Distribution appears to be in the
vascular territory of the middle cerebral arteries and posterior cerebral arteries bilaterally. A few small foci of acute to subacute infarct involving the cerebellar hemispheres, slightly greater on the left compared to the right.
No evidence for associated hemorrhage or mass effect.
CTA H/N
Bilateral cervical carotid calcified plaque formation, as described. Right ICA estimated luminal diameter reduction of 50%. No dissection or occlusion.
No hemodynamically significant stenosis involving the left common or internal carotid artery. No [place] of [place] aneurysm or stenosis. No cerebral artery significant plaque, stenosis, thrombus, or occlusion.
A/P:
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
# Clinical deterioration/deconditioning
MRI brain showing numerous scattered abnormal diffusion weighted signal on bilateral hemisphere
CTA head and neck did not show any critical stenosis
Lower extremity venous Doppler negative for clot
Neurology and cardiology consulted. Defer OAC to specialists.
Card [employer] surveillance system monitor at the time of DC. No GABINO due to patient's clinical status.
Repeat CT head showed evolving stroke. No signs of hemorrhagic conversion
Cont baby aspirin through Dobbhoff. Added Plavix per neuro (d/w Dr Sesay 01/10)
pt failed VSE 01/10
GOC discussion initiated. Family has met with chucker.
Per son, they are exploring hospice facility for the patient.
# Hypernatremia due to dehydration
# Hypokalemia
Cont D5W (increase rate) with K
# Periods of apnea
Could have history of undiagnosed sleep apnea
Currently on CPAP
Pulmonary following, will need sleep study outpatient. On discharge will need nocturnal O2
CXR No acute disease of the chest.
# Acute metabolic encephalopathy - Ongoing
Patient remains with decreased responsiveness, waking up on physical touch at times
No clear signs of seizures. Ceribell monitoring was negative for seizure
Continue supportive care
Lower extremity venous Doppler negative for clot
# Status post left TKA
Evaluated by orthopedic surgeon, no issues with surgical site
Patient will require rehab for TKA/stroke
# Essential hypertension , resolved
cont Toprol through tube
As needed hydralazine for systolic blood pressure more than 160
# Neuropathy
Hold gabapentin for now
# Constipation
Dulcolax suppository, Colace and senna
# Normocytic anemia
Monitor for any postop/surgical blood loss anemia
DVT PPX - Lovenox SQ
Full code
Dispo: now plan for hospice
DW RN
DW CM
Called son on the phone. He confirmed with me the decision to proceed with hospice, and to hold of Dophoff tube.
He states that they are exploring hospice facilities for the patient.
Anticipated Discharge: 24 - 48 hours
Subjective/Interval History
-
Date of Service: January 12, 2025
Objective Data
-
Labs:
Laboratory Results
01/12/25
06:12
Sodium 151 H
Potassium 3.4 L
Chloride 120 H
Carbon Dioxide 23
BUN 50 H
Creatinine 1.0
Glucose 126 H
Calcium 9.3
Vital Signs:
Vital Signs
Temp Pulse Resp BP Pulse Ox
36.8 C 89 18 127/72 92
01/12/25 07:15 01/12/25 07:15 01/12/25 07:15 01/12/25 07:15 01/12/25 07:15
I&O
01/11/25 01/12/25 01/13/25
06:59 06:59 06:59
Intake Total 960 / 960
Output Total 800 / 800
Balance 960 / 960 -800 / -800
Review of Systems
-
Unable to obtain full review of systems at this time due to: Acuity
Physical Exam
-
General: No Apparent Distress, Comfortable and Appears Chronically Ill
HEENT: Oxygen (4L NC)
Respiratory: Clear to Auscultation and Non Labored Respirations; Negative Accessory Resp Muscle Use
Cardiac: Regular Rhythm and S1/S2; Negative Murmur or Rub
Neuro: Awake
Psych: Calm
Data Reviewed
-
Labs: Labs Reviewed by me, Discussed with Nurse and Discussed with Family
[2025-01-12 11:35] VITALS: BP 113/70
[2025-01-12] MEDS: KCL 1020 MEQ IV (12:08)
--- NOTE | 2025-01-12 13:01 | CM ---
CM was updated by Mark at [facility] that patient's family is interested in the inpatient unit. CM sent referral to [facility] and will await final acceptance. CM updated hospitalist with plan.
[2025-01-12 15:00] VITALS: BP 124/78
--- NOTE | 2025-01-12 15:36 | CHAP ---
Addendum entered by Darcy Mcnair 01/12/25 16:23:
Monsignor Zaragoza was able to provide Mr. Viera with Sacrament of the Sick/Final blessing, as well as sharing prayers with his family at bedside.
Original Note:
Sales Systems Engineer request relayed to Monsignor Zaragoza for Sacrament of the Sick/Last Rites. Mr. Viera did already receive the Sacrament on 12/30/24 but as the utilities service investigator will be coming for another patient on the same floor, we asked that he stop in to see
Mr. Viera as well. anticipates arriving shortly.
[2025-01-12] MEDS: LOVENOX 40 MG SC (17:20)
[2025-01-12 19:05] VITALS: BP 109/77
[2025-01-12] MEDS: REMOVE LIDOCAINE PATCH 1 PATCH REMOVE (21:32)
[2025-01-12] MEDS: PEPCID TUBE (22:29)
[2025-01-12 23:04] VITALS: BP 105/58
[2025-01-13] MEDS: KCL 1020 MEQ IV ×2 (01:54→09:39)
[2025-01-13 03:05] VITALS: BP 112/60
[2025-01-13 07:00] VITALS: BP 111/74
--- NOTE | 2025-01-13 07:21 | W.PN.ORTHO ---
Today's Communication / Plan
-
PT/OT as appropriate
Orthopedics will continue to follow
Assessment
.
Distal Motor Intact: Yes
Dressing:
Clean, dry and intact.
Plan
.
Surgery / Date: 12/29 THV S/P CVA
Activity:
Out of bed.
PT/OT
Subjective
.
.:
Patient resting comfortably. It is difficult for him to speak but he says that his knee is doing fine. His nurse relates that they just placed him on hospice.
Vital Signs and Labs
.
Vital Signs and Labs:
Lab Results
01/11/25 09:46
Temp Pulse Resp BP Pulse Ox
98.8 F 76 16 112/60 95
01/13/25 03:05 01/13/25 03:05 01/13/25 03:05 01/13/25 03:05 01/13/25 03:05
PT Cancelled 12/30/24 03:25
INR Cancelled 12/30/24 03:25
[2025-01-13 07:53] LABS: Blood Urea Nitrogen 39 mg/dl (9-20); Calcium 8.8 mg/dl (8.4-10.2); Carbon Dioxide 19 mmol/L (22-30); Chloride 120 mmol/L (98-107); Estimated Creatinine Clearance 77 ml/min; Glucose 136 mg/dl (70-99); Potassium 4.3 mmol/L (3.5-5.1); Sodium 143 mmol/L (135-145); eGFR > 60.00
[2025-01-13] MEDS: LIDOCAINE 4% PATCH 1 PATCH TOPICAL (08:18)
[2025-01-13] MEDS: LOPRESSOR TUBE (08:23)
[2025-01-13] MEDS: COLACE LIQUID TUBE (08:23)
[2025-01-13] MEDS: SENNA SYRUP TUBE (08:23)
[2025-01-13] MEDS: DESENEX/MITRAZOL/ZEASORB 1 APPLIC TOPICAL (08:23)
[2025-01-13] MEDS: LOW STRENGTH ASPIRIN TUBE (08:23)
--- NOTE | 2025-01-13 08:38 | CM ---
LINDY spoke with Mary Ann at [facility]. Mary Ann will visit patient in house for a final evaluation and plan to offer bed at [facility]. LINDY will wait final acceptance notification by Mary Ann. CM updated hospitalist with plan.
--- NOTE | 2025-01-13 09:50 | W.PN.HOSP.TC ---
Today's Communication/Plan
-
hospice care at [facility]
Assessment / Plan
Assessment / Plan
Brain MRI
There are numerous scattered foci of abnormal diffusion-weighted signal compatible with acute to subacute infarction within both cerebral hemispheres, with involvement of the frontal, parietal, and occipital lobes. Distribution appears to be in the
vascular territory of the middle cerebral arteries and posterior cerebral arteries bilaterally. A few small foci of acute to subacute infarct involving the cerebellar hemispheres, slightly greater on the left compared to the right.
No evidence for associated hemorrhage or mass effect.
CTA H/N
Bilateral cervical carotid calcified plaque formation, as described. Right ICA estimated luminal diameter reduction of 50%. No dissection or occlusion.
No hemodynamically significant stenosis involving the left common or internal carotid artery. No [place] of [place] aneurysm or stenosis. No cerebral artery significant plaque, stenosis, thrombus, or occlusion.
A/P:
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
# Clinical deterioration/deconditioning
MRI brain showing numerous scattered abnormal diffusion weighted signal on bilateral hemisphere
CTA head and neck did not show any critical stenosis
Lower extremity venous Doppler negative for clot
Neurology and cardiology consulted. Defer OAC to specialists.
Card [facility] machine heel seat fitter at the time of DC- may not be needed anymore with transitioning of care to hospice.
No GABINO due to patient's clinical status.
Repeat CT head showed evolving stroke. No signs of hemorrhagic conversion
Cont baby aspirin through [facility]. Added Plavix per neuro (d/w Dr Sesay 01/10)
pt failed VSE 01/10
GOC discussion initiated. Family has met with chief information officer.
Family has elected inpatient hospice care at [facility].
# Hypernatremia due to dehydration
# Hypokalemia
resolved with D5W and K supplement
# Periods of apnea
Could have history of undiagnosed sleep apnea
Currently on CPAP
Pulmonary following, [facility] sleep study outpatient.
CXR No acute disease of the chest.
# Acute metabolic encephalopathy - Ongoing
Patient remains with decreased responsiveness, waking up on physical touch at times
No clear signs of seizures. Ceribell monitoring was negative for seizure
Continue supportive care
Lower extremity venous Doppler negative for clot
# Status post left TKA
Evaluated by orthopedic surgeon, no issues with surgical site
# Essential hypertension , resolved
cont Toprol
As needed hydralazine for systolic blood pressure more than 160
# Neuropathy
Hold gabapentin for now
# Constipation
Dulcolax suppository, Colace and senna
# Normocytic anemia
Monitor for any postop/surgical blood loss anemia
DVT PPX - Lovenox SQ
DNR DNI
Dispo: inpatient hospice at [facility]
DW son at bedside
DW RN
DW CM
Anticipated Discharge: Within 24 hours
Subjective/Interval History
-
Date of Service: January 13, 2025
Objective Data
-
Labs:
Laboratory Results
01/13/25
06:31
Sodium 143 D
Potassium 4.3 D
Chloride 120 H
Carbon Dioxide 19 L
BUN 39 H
Creatinine 0.8
Glucose 136 H
Calcium 8.8
Vital Signs:
Vital Signs
Temp Pulse Resp BP Pulse Ox
36.9 C 91 22 111/74 90
01/13/25 07:00 01/13/25 07:00 01/13/25 07:00 01/13/25 07:00 01/13/25 07:00
I&O
01/12/25 01/13/25 01/14/25
06:59 06:59 06:59
Output Total 800 / 800
Balance -800 / -800
Review of Systems
-
Unable to obtain full review of systems at this time due to: Acuity
Physical Exam
-
General: Comfortable, Respiratory Distress and Appears Chronically Ill
HEENT: Oxygen (6L NC)
Respiratory: Clear to Auscultation and Non Labored Respirations; Negative Accessory Resp Muscle Use
Cardiac: Regular Rhythm and S1/S2; Negative Murmur or Rub
Neuro: Awake
Psych: Calm
Data Reviewed
-
Labs: Labs Reviewed by me, Discussed with Nurse and Discussed with Family
--- NOTE | 2025-01-13 10:39 | CM ---
Cm confirmed that patient has been accepted to [facility]. Cm updated hospitalist.
[facility]
Report
[phone]
[2025-01-13 11:00] VITALS: BP 136/68
--- NOTE | 2025-01-13 11:03 | W.DCSUMMARY ---
Discharge Summary
Discharge Data
Date of Admission: 12/30/24
Date of Discharge: 01/13/25
Total time spent discharging patient (in min): 40
-
Pending Results: No
Hospital Course
Principal Diagnosis:
Status post left TKA 12/29.
Acute CVA, presumed cardioembolic in nature, following L knee TKA. This was followed by severe clinical deterioration/deconditioning.
Hypernatremia due to dehydration.
Hypokalemia.
Chronic Diagnoses:�
Left knee osteoarthritis
Periods of apnea, possible undiagnosed sleep apnea
Essential hypertension
Consultations:�
Orthopedic
Neurology
Cardiology
Hotel Houseman
Procedures:�
Left TKA 12/29/2024
Clinical course:�
This is a 79-year-old male, with past medical history as stated above, who presented for left knee replacement in setting of osteoarthritis.
His hospital course was complicated by acute stroke following the procedure, with subsequent clinical deterioration.
Problem 1:
Status post left TKA 12/29.
Problem 2:
Acute CVA, presumed cardioembolic in nature, following L knee TKA.
This was followed by severe clinical deterioration/deconditioning.
His MRI brain showed numerous scattered abnormal diffusion weighted signal on bilateral hemisphere.
His CTA head and neck did not show any critical stenosis.
His Lower extremity venous Doppler was negative for clot.
Neurology and cardiology were consulted.
Dobbhoff tube was placed for severe dysphagia, which the patient self removed on 01/09/2025.
The patient failed VSE on 01/10.
GOC discussion was initiated and the family has elected to transition the patient to inpatient hospice at [facility].
Problem 3:
Hypernatremia due to dehydration.
Hypokalemia.
These electrolyte abnormalities resolved with D5W and K supplement.
Discharge Plan
-
Patient Disposition: Hospice - Inpatient
Discharge Diagnosis/Procedures: L knee osteoarthritis status post L TKA w/ Dr Nicholas 12/29/24;
Acute stroke presumed cardioembolic in nature;
Subsequent dysphagia (failed video swallow) with severe clinical deterioration/deconditioning
Condition: Critical
Diet: As tolerated and Other diet
Additional Diets: Continue diet for comfort/pleasure only
Activity: As tolerated
Driving Restrictions: No driving
Other Services: Hospice
Wound Care: Dressing to be removed 1 week post-surgery.
Referrals:
Randy Haider DO [Family Provider, [facility]] - in less than 1 week
Prescriptions:
New
oxycodone 5 mg tablet
5 - 10 mg PO Q6H PRN (Reason: moderate-severe pain) Qty: 30 0RF
Rx Instructions:
1 tab for moderate pain, 2 if severe.
Dx total joint.
ondansetron HCl 4 mg tablet
4 mg PO Q6H PRN (Reason: nausea and vomiting) Qty: 30 0RF
acetaminophen [Acetaminophen Extra Strength] 500 mg tablet
1,000 mg PO Q6H Qty: 60 0RF
Rx Instructions:
DO NOT exceed >4000 mg daily.
sennosides-docusate sodium [Senna-S] 8.6-50 mg tablet
1 tab-cap PO BID PRN (Reason: Constipation) Qty: 20 0RF
Discontinued
simvastatin 20 mg Tablet
20 mg PO QPM
naproxen sodium [Aleve] 220 mg Tablet
220 mg PO Q12H PRN (Reason: pain)
metoprolol succinate 25 mg Tablet Extended Release 24 Hr
25 mg PO DAILY
multivitamin
1 tab PO DAILY
vitamin B complex
1 tab PO DAILY
Discharge Orders:
Discharge Patient (As Directed); Ordered 01/13/25
Ordered By: Sera Escobar
Discharge Date and Time
Print Language: LUXEMBOURGER
--- NOTE | 2025-01-13 12:25 | PTCARENOTE ---
attempted to call report to jonathan loera- no answer
[2025-01-13 15:00] VITALS: BP 125/73
== END 2025-01-13 16:02 | disposition hospice, home (50) | DRG 981 ==
LOC: 2 SOUTH 13:49
PROVIDERS: Internal Medicine; Nurse Practitioner Gerontology; Nurse Practitioner Primary Care; Orthopaedic Surgery; Psychiatry & Neurology Neurology; Radiology Diagnostic Radiology; Registered Nurse; Student in an Organized Health Care Education/Training Program; ADMITTING PHYSICIAN Hospitalist; ATTENDING PHYSICIAN Internal Medicine; CONSULT PHYSICIAN Internal Medicine Cardiovascular Disease; CONSULT PHYSICIAN Otolaryngology; CONSULT PHYSICIAN Physical Medicine & Rehabilitation; CONSULT PHYSICIAN Psychiatry & Neurology Neurology; FAMILY PHYSICIAN Family Medicine; OTHER PHYSICIAN Internal Medicine Critical Care Medicine
PROC: 0SRD0J9 Replacement of Left Knee Joint with Synthetic Substitute, Cemented, Open Approach (ICD-10-PCS; 2024-12-29)
PROC: XX20X89 Monitoring of Brain Electrical Activity, Computer-aided Detection and Notification, New Technology Group 9 (ICD-10-PCS; 2024-12-30)
PROC: 0DH67UZ Insertion of Feeding Device into Stomach, Via Natural or Artificial Opening (ICD-10-PCS; 2024-12-31)
PROC: 5A0935A Assistance with Respiratory Ventilation, Less than 24 Consecutive Hours, High Flow/Velocity Cannula (ICD-10-PCS; 2025-01-01)
PROC: 5A09357 Assistance with Respiratory Ventilation, Less than 24 Consecutive Hours, Continuous Positive Airway Pressure (ICD-10-PCS; 2025-01-02)
DX: I97.821 Postprocedural cerebrovascular infarction following other surgery (principal); G93.41 Metabolic encephalopathy; I63.443 Cerebral infarction due to embolism of bilateral cerebellar arteries; J96.01 Acute respiratory failure with hypoxia; E87.3 Alkalosis; J98.11 Atelectasis; E87.0 Hyperosmolality and hypernatremia; R47.01 Aphasia; M17.12 Unilateral primary osteoarthritis, left knee; R47.1 Dysarthria and anarthria; R49.0 Dysphonia; K59.00 Constipation, unspecified; E86.0 Dehydration; D64.9 Anemia, unspecified; I48.91 Unspecified atrial fibrillation; Y83.1 Surgical operation with implant of artificial internal device as the cause of abnormal reaction of the patient, or of later complication, without mention of misadventure at the time of the procedure; Y92.239 Unspecified place in hospital as the place of occurrence of the external cause; R41.841 Cognitive communication deficit; E87.6 Hypokalemia; N32.89 Other specified disorders of bladder; I10 Essential (primary) hypertension; I71.21 Aneurysm of the ascending aorta, without rupture; K21.9 Gastro-esophageal reflux disease without esophagitis; R13.10 Dysphagia, unspecified; I44.0 Atrioventricular block, first degree; G47.33 Obstructive sleep apnea (adult) (pediatric); N28.1 Cyst of kidney, acquired; I45.10 Unspecified right bundle-branch block; E78.00 Pure hypercholesterolemia, unspecified; E66.9 Obesity, unspecified; I25.10 Atherosclerotic heart disease of native coronary artery without angina pectoris; I35.1 Nonrheumatic aortic (valve) insufficiency; G62.9 Polyneuropathy, unspecified; Z96.652 Presence of left artificial knee joint; Z68.32 Body mass index [BMI] 32.0-32.9, adult; Z63.6 Dependent relative needing care at home; Z87.442 Personal history of urinary calculi; Z85.89 Personal history of malignant neoplasm of other organs and systems; Z92.21 Personal history of antineoplastic chemotherapy; Z87.891 Personal history of nicotine dependence; Z85.828 Personal history of other malignant neoplasm of skin; Z59.82 Transportation insecurity; Z79.1 Long term (current) use of non-steroidal anti-inflammatories (NSAID); Z79.891 Long term (current) use of opiate analgesic; Z82.49 Family history of ischemic heart disease and other diseases of the circulatory system; Z79.899 Other long term (current) drug therapy
CPT/HCPCS: 0042T; 36415; 36600; 70450; 70496; 70498; 70551; 71045; 71250; 71275; 73560; 74018; 74176; 74230; 80048; 80053; 80061; 80076; 81003; 81015; 82140; 82550; 82607; 82728; 82746; 82805; 82962; 83036; 83050; 83605; 83735; 84443; 84484; 85025; 85027; 85379; 87040; 87070; 92507; 92523; 92526; 92610; 92611; 92612; 93005; 93306; 93970; 94660; 95816; 97110; 97112; 97129; 97163; 97167; 97530; 97535; C1713; C1776; Q9967